=== PATIENT | male | born 1945 | race Caucasian/White ===

== ENCOUNTER 2019-09-21 05:51 | Day surgery (SDC) | payer OTHER, SELFPAY ==
[2019-09-18 08:51] VITALS: BMI 22.6
[2019-09-21] MEDS: sodium chloride 0.9% 1,000 ML 30 ML (06:18)
[2019-09-21 06:19] VITALS: BP 123/87; PULSE 71; RESP 16; TEMP 36.4; O2SAT 94
--- NOTE | 2019-09-21 06:46 | ANES.PREANE2 ---
Pre-Anesthetic Assessment Pre-Anesthetic Assessment: Height/Weight: Height 1.8 m Weight 73.539 kg Temp Pulse Resp BP Pulse Ox 97.5 F L 71 16 123/87 94 09/21/19 06:19 09/21/19 06:19 09/21/19 06:19 09/21/19 06:19 09/21/19 06:19 Preop Diagnosis: throat change in stools Proposed Procedure: Operation Date: 09/21/19 07:00 Proposed Procedures p EGD/COLON 00339/90155/ R19.5/ R68.89(Not Applicable) - Darell Paiz MD s Colonoscopy(Not Applicable) - Darell Paiz MD Was Beta Diane taken within 24 hours: Yes Last intake: Intake Last Liquid Date 09/20/19 Last Liquid Time 20:00 Last Solid Date 09/19/19 Last Solid Time 20:00 Social: Social History: No alcohol and No tobacco Exam: Pre-Anes Outpt Exam: alert, oriented x 3, clear to auscultation bilaterally and regular rate & rhythm Airway: Submandibular: WNL Cervical ROM: WNL MP: 3 Dentition: Full History/ROS: No significant history except as noted and No significant complaints Pulmonary: Pulmonary: None reported CV/HEM: CV/HEM: CAD, HTN and [facility] (2005, [address] Mercedes 08/17- no changes ) : : None reported Hepatic: Hepatic: None reported GI: GI: None reported Metabolic: Metabolic: None reported Musc/skel: Musc/skel: OA/DJD Neuropsych: Neuropsych: None reported Anesthetic Plan: ASA status: 3 Anesthesia: MAC PFSH Anesthesia PFSH: Social History Smoking and tobacco status: never smoked Alcohol intake: never Household members: spouse Marital status: Current occupational status: retired History of recent travel: No Data Anesthesia Cardiac Studies: No Data to Display
--- NOTE | 2019-09-21 07:05 | W.PM.OPSUD ---
Surgery/Procedure H&P Update DATE OF PROCEDURE: September 21, 2019 DATE H&P PERFORMED: 08/31/19 H&P UPDATE INFORMATION: I have reviewed H&P completed within last 30 days, I have examined patient prior to procedure and No changes to prior documentation PREOP DIAGNOSIS: throat change in stools PLANNED PROCEDURE: Operation Date: 09/21/19 07:00 Proposed Procedures p EGD/COLON 88489/65956/ R19.5/ R68.89(Not Applicable) - Darell Paiz MD s Colonoscopy(Not Applicable) - Darell Paiz MD
[2019-09-21 07:28] VITALS: BP 78/52; PULSE 70; RESP 16; TEMP 36.2; O2SAT 93
[2019-09-21 07:40] VITALS: BP 89/60; PULSE 66; RESP 18; TEMP 36.2; O2SAT 94
--- NOTE | 2019-09-21 08:14 | ANE.PACU2 ---
 Inpatient post-anesthesia follow up: Airway intact: Yes Vital signs: Temperature 97.1 F Pulse Rate 66 Respiratory Rate 18 Blood Pressure 89/60 Pulse Oximetry 94 Oxygen Delivery Me thod Room Air Oxygen Flow Rate 2 Fraction of Inspir ed Oxygen Hydration adequate: Yes Nausea and vomiting: No Mental status: Baseline Additional Comments: bp improved to 90s sys. , no s/s distress
== END 2019-09-21 08:09 | disposition home or self-care (01) ==
PROVIDERS: Family Provider Nurse Practitioner Family; PCP Internal Medicine; Visit Provider Surgery
PROC: 0DJ08ZZ Inspection of Upper Intestinal Tract, Via Natural or Artificial Opening Endoscopic (ICD-10-PCS; CPT 43235; principal; 2019-09-21 07:00)
PROC: 0DJD8ZZ Inspection of Lower Intestinal Tract, Via Natural or Artificial Opening Endoscopic (ICD-10-PCS; CPT 45378; 2019-09-21 07:00)
DX: R19.4 Change in bowel habit (principal); R07.0 Pain in throat; Z79.82 Long term (current) use of aspirin; Z79.52 Long term (current) use of systemic steroids; N40.0 Benign prostatic hyperplasia without lower urinary tract symptoms; E78.00 Pure hypercholesterolemia, unspecified; I25.2 Old myocardial infarction; M19.90 Unspecified osteoarthritis, unspecified site; Z82.49 Family history of ischemic heart disease and other diseases of the circulatory system; K20.9 Esophagitis, unspecified; K44.9 Diaphragmatic hernia without obstruction or gangrene; K22.70 Barrett's esophagus without dysplasia; K57.30 Diverticulosis of large intestine without perforation or abscess without bleeding
CPT/HCPCS: 12345; 43239; 45378; 88305; J2001; J2370; J2704; J7030

== ENCOUNTER 2020-02-04 08:26 | Outpatient (CLI) | payer OTHER, SELFPAY ==
--- NOTE | 2020-02-04 | XR_ITS ---
WS: [id number] PROCEDURE: XR chest 2V* 24030 CLINICAL INFORMATION: COUGH COMPARISON: None. FINDINGS: Heart: Normal cardiac silhouette. Aortic calcification Lungs: Moderate chronic emphysematous changes. No acute pulmonary infiltrates. No focal pneumonia. Bones: Normal visualized bony structures. XR/XR chest 2V* 10193 IMPRESSION: Moderate chronic emphysematous changes. No focal pneumonia.
--- NOTE | 2020-02-04 | CT_ITS ---
WS: [id number] CT NECK TECHNIQUE: Contrast-enhanced CT of the neck with coronal and sagittal reformatted images. CLINICAL INFORMATION: PAIN IN THROAT COMPARISON: None. DLP: 2469.[address] scans at [facility] use at least one of these dose optimization techniques: automat ed exposure control; mA and/or kV adjustment per patient size (includes targeted exams where dose is matched to clinical indication); or iterative reconstruction. FINDINGS: Parotid glands are normal. Normal submandibular glands. Normal posterior nasopharynx. Normal paraphar yngeal fat. Normal palatine tonsils. Normal vallecula and piriform sinuses. No evidence of supraglott ic or glottic mass. Thyroid gland is normal. No cervical lymphadenopathy. Moderate calcified atheromatous disease left carotid bulb. Mastoid air cells and paranasal sinuses are well aerated. Moderate emphysematous changes in the lung apices. Advanced spondylitic changes cervical spine with grade 1 anterolisthesis C4 on C5. Partially visualized intracranial contents normal. CT/CT neck w con* 08678 IMPRESSION: 1. Salivary glands are normal. 2. No cervical lymphadenopathy. 3. No evidence of supraglottic or glottic mass. 4. Paranasal sinuses and mastoid air cells are well aerated.
[2020-02-04 09:10] LABS: Blood Urea Nitrogen 10 mg/dL (8-23)
[2020-02-04] MEDS: iohexol 300 mg/mL 100 mL Btl IV (09:16)
== END 2020-02-04 08:27 | disposition home or self-care (01) ==
LOC: RADWPI 08:29
PROVIDERS: Family Provider Nurse Practitioner Family; PCP Nurse Practitioner Family; Visit Provider Specialist
DX: R07.0 Pain in throat (principal); R05 Cough
CPT/HCPCS: 70491; 71046; 82565; 84520; Q9967

== ENCOUNTER → 2020-05-09 14:49 | Outpatient (BNVA) | payer OTHER, SELFPAY | PROVIDERS: Family Provider Nurse Practitioner Family; PCP Nurse Practitioner Family; Referring Provider Internal Medicine; Visit Provider Nurse Practitioner Family | DX: N40.1 Benign prostatic hyperplasia with lower urinary tract symptoms (principal); M54.9 Dorsalgia, unspecified | CPT/HCPCS: 81001 ==

== ENCOUNTER → 2020-06-29 09:48 | Outpatient (BNVA) | payer OTHER, SELFPAY | PROVIDERS: Family Provider Nurse Practitioner Family; PCP Nurse Practitioner Family; Visit Provider Internal Medicine Rheumatology | DX: M15.9 Polyosteoarthritis, unspecified (principal); Z79.899 Other long term (current) drug therapy; Z11.59 Encounter for screening for other viral diseases; Z11.1 Encounter for screening for respiratory tuberculosis | CPT/HCPCS: 99204 ==

== ENCOUNTER 2020-07-04 10:58 | Outpatient (CLI) | payer OTHER, SELFPAY ==
--- NOTE | 2020-07-04 11:14 | XR_ITS ---
WS: [id number] XR foot LT min 3V* 38429 REASON FOR EXAM: M19.90 - Unspecified osteoarthritis, unspecified site FINDINGS: Mild/moderate narrowing of the MIP and DIP joints with subchondral sclerosis of the left toes. There is a hallux valgus deformity of the metatarsal phalangeal joint of the great toe with mild to m oderate narrowing of the joint space and subchondral sclerosis. Bony overgrowth of the metatarsal hea d of the great toe erodes the adjacent sesamoid bone. The joints of the midfoot are intact with mild narrowing of the talonavicular joint with subchondral sclerosis. The joints of the hindfoot are intact. No fracture or dislocation. No focal bony lesion. XR/XR foot LT min 3V* 86240 IMPRESSION: Changes of osteoarthropathy and multiple joints of the left foot as above.
--- NOTE | 2020-07-04 11:14 | XR_ITS ---
WS: [id number] XR hand RT min 3V* 11427 REASON FOR EXAM: M19.90 - Unspecified osteoarthritis, unspecified site FINDINGS: There is mild to moderate of the DIP and MIP joints of the fingers of the right hand with subchondral sclerosis. Similar changes are seen in the third and fourth metacarpal phalangeal joints. The first through the third metacarpal phalangeal joints are significantly narrowed with dense subcho ndral sclerosis enlargement of the metacarpal head with multiple small cysts. Similar changes are see n in the carpal metacarpal joint of the thumb. XR/XR hand RT min 3V* 81410 IMPRESSION: Arthropathic change in multiple joints of the right hand compatible with osteoa rthropathy.
--- NOTE | 2020-07-04 11:14 | XR_ITS ---
WS: [id number] XR hand LT min 3V* 31772 REASON FOR EXAM: M19.90 - Unspecified osteoarthritis, unspecified site FINDINGS: In the DIP and MIP joints of the left hand there is mild to moderate narrowing of the disc spaces wit h subchondral sclerosis. In the first, fourth, and fifth metacarpal phalangeal joints there are similar arthropathic changes. In the second and third carpal metacarpal joints there is significant joint space narrowing and enlar gement of the metacarpal head with multiple small cysts and subchondral sclerosis. XR/XR hand LT min 3V* 33547 IMPRESSION: Arthropathy in multiple joints of the left hand most compatible with osteoarthr opathy. While the involvement of the carpal metacarpal joints is more typical o f rheumatoid arthritis the radiographic character of the arthropathy is most co mpatible with osteoarthropathy.
--- NOTE | 2020-07-04 11:14 | XR_ITS ---
WS: [id number] XR foot RT min 3V* 62872 REASON FOR EXAM: M19.90 - Unspecified osteoarthritis, unspecified site FINDINGS: Mild to moderate narrowing of the MIP and DIP joints with subchondral sclerosis of the right toes. The metatarsophalangeal joint of the right great toe demonstrates a hallux valgus deformity with mode rate joint space narrowing and enlargement of the metatarsal head with multiple small cysts and scler osis. The overgrowth of the metatarsal head erodes the adjacent sesamoid bone. Similar findings are s een in the metatarsal phalangeal joint of the second toe. The joints of the midfoot are intact. There is mild narrowing of the talonavicular joint with subchon dral sclerosis. The joint spaces of the hindfoot are intact. No fracture dislocation or focal bony lesion is identified. XR/XR foot RT min 3V* 04670 IMPRESSION: Osteoarthropathy involving the right foot as above.
--- NOTE | 2020-07-04 11:14 | XR_ITS ---
WS: [id number] CHEST 2 VIEWS HISTORY: M19.90 - Unspecified osteoarthritis, unspecified site COMPARISON: 02/04/2020 Lungs: Hyperinflated lungs from emphysema. No pneumonia. Normal vasculature. Cardiac size: Normal. Mediastinum/Aorta: Mild atherosclerosis aorta. Bones: Normal. XR/XR chest 2V* 83092 IMPRESSION: Mild chronic emphysema and partially calcified aorta.
[2020-07-04 12:44] LABS: Basophils # 0.1 10^3/uL (0.0-0.1); Basophils % 0.9 %; Eosinophils % 0.5 %; Hematocrit 45.4 % (42.0-52.0); Hemoglobin 14.9 g/dL (11.7-16.6); Lymphocytes # 1.3 10^3/uL (0.8-4.8); Lymphocytes % 24.4 %; Mean Corpuscular HGB Conc 32.8 g/dL (30.0-36.0); Mean Corpuscular Hemoglobin 29.9 pg (28.0-34.0); Mean Corpuscular Volume 91.2 fL (80-94); Mean Platelet Volume 8.7 fL (7.4-10.4); Monocytes # 0.4 10^3/uL (0.2-0.9); Monocytes % 7.7 %; Neutrophils # 3.62 10^3/uL (1.8-7.7); Neutrophils % 66.3 %; Nucleated Red Blood Cells % 0 %; Platelet Count 256 10^3/cmm (130-400); Red Blood Count 4.98 10^6/uL (4.1-5.3); Red Cell Distribution Width 12.9 % (12.1-15.1); White Blood Count 5.5 10^3/uL (4.0-10.0)
[2020-07-04 13:28] LABS: Alanine Aminotransferase 17 U/L (0-41); Alkaline Phosphatase 76 IU/L (40-130); Aspartate Amino Transferase 26 U/L (0-40); C Reactive Protein 1.4 mg/L (0.0-4.9); Globulin 2.4 g/dL (1.3-4.6); Total Bilirubin 0.6 mg/dL (0.15-1.2); Total Protein 6.4 g/dL (6.6-8.7); Uric Acid 5.3 mg/dL (3.4-7.0)
[2020-07-04 14:14] LABS: Hepatitis B Core AB, Total Non-Reactive (Nonreactive); Hepatitis B Surface Antigen Non-Reactive (Nonreactive); Hepatitis C Virus Antibody Non-Reactive (Nonreactive)
[2020-07-04 14:55] LABS: Erythrocyte Sedimentation Rate 9 mm/hr (0-10)
[2020-07-04 17:19] LABS: 25 Hydroxy Vitamin D 31 ng/mL (30-100)
[2020-07-05 12:52] LABS: Cyclic Citrullinated Peptide <16 UNITS
[2020-07-06 12:38] LABS: Quantiferon Mitogen 7.83 IU/mL; Quantiferon Nil 0.05 IU/mL; Quantiferon Plus TB1 0.04 IU/mL; Quantiferon Plus TB2 0.01 IU/mL; Quantiferon TB Gold NEGATIVE (NEGATIVE)
== END 2020-07-04 10:59 | disposition home or self-care (01) ==
PROVIDERS: PCP Nurse Practitioner Family; Visit Provider Internal Medicine Rheumatology
DX: M19.90 Unspecified osteoarthritis, unspecified site (principal); Z11.59 Encounter for screening for other viral diseases; Z79.899 Other long term (current) drug therapy; M89.471 Other hypertrophic osteoarthropathy, right ankle and foot; J43.9 Emphysema, unspecified; I70.0 Atherosclerosis of aorta
CPT/HCPCS: 71046; 73130; 73630; 80076; 82306; 82565; 84550; 85025; 85651; 86140; 86431; 86480; 86704; 86803; 87340

== ENCOUNTER 2020-07-05 10:15 | Emergency (ER) | payer OTHER, SELFPAY ==
[2020-07-05 10:17] VITALS: BP 139/74; PULSE 68; RESP 16; TEMP 36.5; O2SAT 100; BMI 22.3
--- NOTE | 2020-07-05 10:31 | XR_ITS ---
WS: [id number] XR KUB portable [id number] REASON FOR EXAM: constipation FINDINGS: Moderate amount of stool throughout the right and transverse colons.. There is no large fecal accumul ation in the rectal vault. There is no distended bowel. There are 2 calcifications in the right abdomen. These have been noted previously and CT scan of 03/21 demonstrated cholelithiasis. No free air. No mass identified. Severe changes of degenerative spondylosis in the lumbar spine. Total left hip arthroplasty. XR/XR KUB portable [id number] IMPRESSION: Bowel gas pattern as above.
--- NOTE | 2020-07-05 10:31 | ED_ITS ---
HPI - Male Genitourinary General: Chief complaint: Urogenital-Male Stated complaint: Unable to use [facility] Time Seen by Provider: 07/05/20 10:23 History of Present Illness: HPI Narrative: Patient states the last 2 days he has had a lot of difficulty with urination. Had problems with his bowels for the last 2 to 3 weeks. Had his prostate medicine doubled up dose lima about a month ago through the [place] [facility]. And that would be Flomax. Patient denies any other problems presently MD Complaint: dysuria Onset (ago): day(s) Duration: constant and progressively worsening Associated symptoms: Deny nausea or vomiting Review of Systems Const: Denies: fever(s), chills or body aches Eyes: Denies: change in vision or blurry vision ENMT: Denies: throat pain or nasal congestion Card: Denies: chest pain or dyspnea on exertion Resp: Denies: dyspnea, productive cough or non-productive cough GI: Reports: other (Constipation); Denies: abdominal pain, nausea or vomiting : Reports: difficulty urinating and difficulty starting urination Musc: Denies: extremity pain Skin/Breast: Denies: rash Neuro: Denies: headache(s) Psych: Denies: anxiety or depression Parth/Lymph: Denies: easy bruising PFSH ED PFSH: Medical History (Updated 06/29/20 @ 11:00 by Xavi Mckeon MD) Back pain BPH (benign prostatic hyperplasia) BPH loc w urin obs/LUTS High risk medication use History of atrial fibrillation History of GI bleed Hx of coronary artery disease Hx of hypercholesterolemia Hx of myocardial infarction Hx of sciatica Hx of TIA (transient ischemic attack) and stroke Hypercholesterolemia Immunization counseling Inflammatory arthritis Joint pain Myocardial infarction Osteoarthritis Osteoarthritis of hands, bilateral S/P ORIF (open reduction internal fixation) fracture left forearm and right elbow Surgical History (Updated 06/29/20 @ 11:00 by Xavi Mckeon MD) H/O colonoscopy 09/20/2019: sigmoid diverticulosis H/O esophagogastroduodenoscopy 09/20/2019: hiatal hernia, Barretts esophagus and hiatal hernia History of bunionectomy (07/09/18) [facility]. Dr. Taylor History of coronary angioplasty with insertion of stent (02/2017) 13224 2 and 2017 2 History of coronary artery stent placement History of hip replacement (07/2009) Left, Total. [facility] Hx of cataract surgery Family History Father CAD (coronary artery disease) Myocardial infarction Mother Stroke Brother Stroke Denies family history of Anesthesia complication Bleeding disorder Social History Smoking and tobacco status: never smoked Alcohol intake: never Household members: spouse Marital status: Current occupational status: retired History of recent travel: No Physical Exam Const: COMMON NORMALS: no acute distress, average body habitus and patient oriented x3 HENMT: COMMON NORMALS: normocephalic HEAD & SCALP: normal to inspection and normocephalic FACE & SINUS: normal facial exam Eye: COMMON NORMALS: conjunctivae normal GENERAL EYE: appearance normal, both eyes and all related structures CONJUNCTIVA: Yes conjunctivae normal Neck/C-Spine: COMMON NORMALS: no JVD Chest: COMMONS NORMALS: normal inspection of the chest Resp: COMMON NORMALS: normal respiratory effort and clear to auscultation bilaterally AUSCULTATION: clear to auscultation bilaterally Cardio: COMMON NORMALS: no JVD, regular rate and regular rhythm RATE: reg ular rate RHYTHM: regular rhythm GI: COMMON NORMALS: Normal to inspection, nondistended, normoactive bowel sounds present Extremity: COMMON NORMALS: normal to inspection and full ROM Neuro: COMMON NORMALS: patient oriented x3 Course Vital Signs: Vital signs: Vital Signs Temperature 97.7 F 07/05/20 10:17 Pulse Rate 68 07/05/20 10:17 Respiratory Rate 16 07/05/20 10:17 Blood Pressure 139/74 07/05/20 10:17 Pulse Oximetry 100 07/05/20 10:17 Discharge Plan Discharge Prescriptions: No Action pantoprazole 40 mg tablet,delayed release (DR/EC) 40 mg PO QDAY Qty: 30 RF: 2 Hold Instructions: Resume on 10/05/19. change to bid until then prednisone 10 mg tablet 10 mg PO DAILY Qty: 30 RF: 2 metoprolol tartrate 50 mg tablet 50 mg PO BID RF: 0 sennosides [Senna Laxative] 8.6 mg tablet 8.6 mg PO BID RF: 0 ferrous sulfate 325 mg (65 mg iron) tablet See Rx Instructions PO BID RF: 0 finasteride 5 mg tablet 5 mg PO QDAY RF: 0 clopidogrel 75 mg tablet 75 mg PO QDAY RF: 0 lisinopril 2.5 mg tablet 2.5 mg PO BID RF: 0 simvastatin 80 mg tablet 40 mg PO QDAY RF: 0 aspirin [Adult Low Dose Aspirin] 81 mg tablet,delayed release (DR/EC) 81 mg PO QDAY RF: 0 tamsulosin 0.4 mg capsule 0.4 mg PO BID Qty: 180 RF: 3 Coding Level of Care Code ED Helper/Driver for Maya Hogue
[2020-07-05 10:53] LABS: Basophils # 0.1 10^3/uL (0.0-0.1); Basophils % 0.9 %; Eosinophils % 0.6 %; Hematocrit 44.5 % (42.0-52.0); Lymphocytes # 1.3 10^3/uL (0.8-4.8); Lymphocytes % 24.1 %; Mean Corpuscular HGB Conc 33.7 g/dL (30.0-36.0); Mean Corpuscular Hemoglobin 30.2 pg (28.0-34.0); Mean Corpuscular Volume 89.7 fL (80-94); Mean Platelet Volume 9.1 fL (7.4-10.4); Monocytes # 0.4 10^3/uL (0.2-0.9); Monocytes % 7.1 %; Neutrophils # 3.56 10^3/uL (1.8-7.7); Neutrophils % 66.9 %; Nucleated Red Blood Cells % 0 %; Platelet Count 229 10^3/cmm (130-400); Red Blood Count 4.96 10^6/uL (4.1-5.3); Red Cell Distribution Width 12.9 % (12.1-15.1); White Blood Count 5.3 10^3/uL (4.0-10.0)
[2020-07-05 11:09] LABS: Alanine Aminotransferase 17 U/L (0-41); Albumin Level 3.9 g/dL (3.5-5.2); Alkaline Phosphatase 72 IU/L (40-130); Anion Gap 15.3 (5-19); Aspartate Amino Transferase 20 U/L (0-40); Blood Urea Nitrogen 7 mg/dL (8-23); Calcium 9.5 mg/dL (8.5-10.5); Carbon Dioxide 24 mmol/L (22-29); Chloride 103 mmol/L (98-107); Globulin 2.1 g/dL (1.3-4.6); Glucose 94 mg/dL (65-115); Osmolality Calculated 284 mOsm/kg (285-295); Potassium 4.3 mmol/L (3.5-5.1); Sodium 138 mmol/L (136-145); Total Bilirubin 0.5 mg/dL (0.15-1.2)
[2020-07-05 11:10] LABS: Creatinine Clr Calc Pharmacy 85.0323
[2020-07-05 11:39] LABS: Bilirubin Urine Neg (Negative); Blood Urine 2+ (Negative); Glucose Urine UA Norm (Normal); Ketones Urine 1+ (Negative); Leukocyte Esterase Urine Negative (Negative); Nitrate Urine Negative (Negative); Protein Urine Neg (Negative); Urine Appearance SL Hazy (CLEAR); Urine Color Yellow (Yellow); Urobilinogen Urine Norm (Negative)
[2020-07-05 11:40] LABS: Add Urine Microscopic? YES
[2020-07-05 11:51] LABS: Add Urine Culture? No; Bacteria Urine TRACE /hpf; RBC Urine 0-4 /hpf (0-2); Squamous Epithelial Cell Urine RARE /hpf (0-5)
[2020-07-05 12:45] VITALS: BP 115/70; PULSE 74; RESP 20; O2SAT 94
--- NOTE | 2020-07-05 15:21 | DCPLANNER ---
Addendum entered by Armida Trejo 07/05/20 15:50: [facility] contacted director case management stating that patient has a [facility] consult [facility] until October of 2020. Original Note: business center manager had message to schedule a follow up appointment for patient with the office of Dr. Agustin. business center manager called the office of Dr. Agustin, spoke with Quyen, gave clinic patients information. business center manager was told that patients information would be printed and reviewed. Clinic will call patient with appointment information. Patient has [facility] insurance, director case management will send patients records [facility], so that a consult for patient can be placed.
--- NOTE | 2020-07-07 13:22 | DCPLANNER ---
Patient has a follow up appointment scheduled for Sunday, July 12, 2020 at 8:[address] Agustin. Clinic will call patient with appointment information.
--- NOTE | 2020-07-15 07:45 | DCPLANNER ---
Patient had a follow up appointment scheduled for 07.12.[address] Agustin - patient did attend appointment.
== END 2020-07-05 12:35 | disposition home or self-care (01) ==
PROVIDERS: Emergency Provider Nurse Practitioner Family; PCP Nurse Practitioner Family
DX: R39.198 Other difficulties with micturition (principal); Z79.02 Long term (current) use of antithrombotics/antiplatelets; Z79.82 Long term (current) use of aspirin; I25.10 Atherosclerotic heart disease of native coronary artery without angina pectoris; I25.2 Old myocardial infarction; Z86.73 Personal history of transient ischemic attack (TIA), and cerebral infarction without residual deficits; Z95.5 Presence of coronary angioplasty implant and graft
CPT/HCPCS: 12345; 51702; 74018; 80053; 81001; 85025; 99281; 99283

== ENCOUNTER → 2020-07-12 10:10 | Outpatient (BNVA) | payer OTHER, SELFPAY | PROVIDERS: PCP Nurse Practitioner Family; Visit Provider Urology | DX: R33.8 Other retention of urine (principal); N40.1 Benign prostatic hyperplasia with lower urinary tract symptoms | CPT/HCPCS: 81003; 87077; 87086; 87184; 87635 ==

== ENCOUNTER → 2020-08-18 09:48 | Outpatient (BNVA) | payer OTHER, SELFPAY | PROVIDERS: PCP Nurse Practitioner Family; Visit Provider Internal Medicine Rheumatology | DX: M05.79 Rheumatoid arthritis with rheumatoid factor of multiple sites without organ or systems involvement (principal); Z79.899 Other long term (current) drug therapy; M15.9 Polyosteoarthritis, unspecified | CPT/HCPCS: 99214 ==

== ENCOUNTER → 2020-09-20 09:39 | Outpatient (BNVA) | payer OTHER, SELFPAY | PROVIDERS: PCP Nurse Practitioner Family; Visit Provider Internal Medicine Rheumatology | DX: M05.79 Rheumatoid arthritis with rheumatoid factor of multiple sites without organ or systems involvement (principal); Z79.899 Other long term (current) drug therapy | CPT/HCPCS: 36415; 80076; 82565; 85025; 86140 ==

== ENCOUNTER 2020-11-08 12:11 | Emergency (ER) | payer OTHER, SELFPAY ==
[2020-11-08 12:24] VITALS: BP 136/83; PULSE 67; RESP 18; TEMP 36.5; O2SAT 97; BMI 22.3
--- NOTE | 2020-11-08 13:05 | CT_ITS ---
WS: [id number] CT HEAD NONCONTRAST HISTORY: fell off a horse, head injury, dizziness TECHNIQUE: Contiguous axial imaging performed through the brain in 2.5 mm imaging. Bone and soft tiss ue windows. Sagittal and coronal reformats reviewed. All CT scans at [facility] use at le ast one of these dose optimization techniques: automated exposure control; mA and/or kV adjustment pe r patient size (includes targeted exams where dose is matched to clinical indication); or iterative r econstruction. DLP: 896.36 mGy.cm COMPARISON: 12/18/2016 No acute intracranial hemorrhage, midline shift or mass effect. Mild atrophy and mild chronic microvascular ischemic disease. Focal 4 mm area of increased density i n the RIGHT parietal lobe towards the vertex. This was not present on the prior examination from 2017 . Highly suspicious for acute focal cerebral bleed. Ventricles: Mildly prominent ventricles. No intracranial blood. Paranasal sinuses: As visualized are clear. Mastoid air cells: Well pneumatized. Calvarium and scalp: Skull is intact with no soft tissue edema or swelling. CT/CT head wo con* [id number] IMPRESSION: 1. Tiny petechial hemorrhage measuring 4 mm in the RIGHT parietal lobe at the vertex. No midline shift. 2. Mild atrophy. 3. No skull fracture. Notified Javier Stoll MD [facility] [place] at 11/08/2020 2:51 PM. Not available.
--- NOTE | 2020-11-08 13:05 | XRR_ITS ---
PROCEDURE INFORMATION: Exam: XR Left Shoulder Exam date and time: 11/08/2020 1:12 PM Age: 75 years old Clinical indication: Injury or trauma; Other: Horse fell on PT; Blunt trauma (contusions or hematomas); Shoulder; Injury date: 11/04/20; Patient HX: Horse fell on patient, cannot lift left arm; Additional info: Fall off horse TECHNIQUE: Imaging protocol: XR Left shoulder. Views: 2 or more views. COMPARISON: CR Shoulder 2+ views LEFT* [id number] 02/17/2014 9:59 AM FINDINGS: Bones/joints: Negative for acute bony abnormality. Soft tissues: Normal. XR/XR shoulder LT min 2V* [id number] IMPRESSION: No acute bone abnormality.
--- NOTE | 2020-11-08 14:40 | W.ED.TRAUMA ---
HPI - Trauma General: Chief Complaint: Trauma Stated Complaint: HORSE FELL ON PT FRI/HEAD/L SHOULDER PAIN, DIZZY Time Seen by Provider: 11/08/20 12:38 Source: patient Mode of arrival: ambulatory Limitations: no limitations History of Present Illness: HPI narrative: Patient is a 75-year-old male who fell off a horse 4 days ago. He landed on his head and sustained abrasions to the left side of his face. He denies loss of consciousness at the time, however today he developed dizziness, said he had difficulty focusing, and was wobbly on his foot. He therefore is here to be evaluated. He also complains of difficulty lifting up his left upper extremity since the fall. complaint: fall Onset (ago): day(s) (4) Loss of Consciousness: no Location: head Location - Extremities: Left: shoulder Context: other (Fell off a horse) Associated symptoms: Reports dizziness and weakness; Denies abdominal pain, anorexia, back pain, chest pain, chills, confusion, cough, dental pain, diaphoresis, difficulty breathing, epistaxis, fever(s), headache(s), nausea, seizures, short of breath, syncope, visual disturbances or vomiting Review of Systems General: Reports: 10 or more systems reviewed and unremarkable except in HPI and below Const: Denies: fever(s), chills or diaphoresis ENMT: Denies: dental pain or epistaxis Card: Denies: chest pain or syncope GI: Denies: abdominal pain, nausea or vomiting Musc: Denies: back pain Neuro: Reports: dizziness; Denies: headache(s) or confusion PFS ED PFSH: Medical History Back pain BPH (benign prostatic hyperplasia) BPH loc w urin obs/LUTS High risk medication use History of atrial fibrillation History of GI bleed Hx of coronary artery disease Hx of hypercholesterolemia Hx of myocardial infarction Hx of sciatica Hx of TIA (transient ischemic attack) and stroke Hypercholesterolemia Immunization counseling Inflammatory arthritis Joint pain Myocardial infarction Osteoarthritis Osteoarthritis of hands, bilateral S/P ORIF (open reduction internal fixation) fracture left forearm and right elbow Seropositive rheumatoid arthritis of multiple sites Surgical History H/O colonoscopy 09/20/2019: sigmoid diverticulosis H/O esophagogastroduodenoscopy 09/20/2019: hiatal hernia, Barretts esophagus and hiatal hernia History of bunionectomy (07/09/18) [facility]. Dr. Taylor History of coronary angioplasty with insertion of stent (02/2017) 2 and 2016 2 History of coronary artery stent placement History of hip replacement (07/2009) Left, Total. [facility] Hx of cataract surgery Family History Father CAD (coronary artery disease) Myocardial infarction Mother Stroke Brother Stroke Denies family history of Anesthesia complication Bleeding disorder Social History Smoking and tobacco status: never smoked Alcohol intake: never Household members: spouse Marital status: Current occupational status: retired History of recent travel: No Physical Exam Const: COMMON NORMALS: no acute distress, average body habitus, patient oriented x3, no limitations, healthy appearing, alert and well nourished HENMT: COMMON NORMALS: normocephalic and moist oral mucous membranes HEAD & SCALP: normocephalic and abrasion (Left temporal) Eye: COMMON NORMALS: Equal, round and reactive pupils present, EOMs intact bilaterally, conjunctivae normal and no scleral icterus PERIORBITAL: periorbital findings abnormal positive left periorbital ecchymosis CONJUNCTIVA: Yes conjunctivae normal PUPIL: Yes Equal, round and reactive pupils present Neck/C-Spine: COMMON NORMALS: full ROM, supple, no meningeal signs, no JVD and No carotid bruits Chest: COMMONS NORMALS: normal inspection of the chest and normal palpation of entire chest wall Resp: COMMON NORMALS: normal respiratory effort, No retractions, No use of accessory muscles, clear to auscultation bilaterally and percussion normal AUSCULTATION: clear to auscultation bilaterally PERCUSSION: percussion normal Cardio: COMMON NORMALS: no JVD, regular rate, regular rhythm, S1 normal heart sound present, S2 normal heart sound present, No gallops present (Cardio), No clicks present (Cardio), No murmurs present (Cardio), No rub (Cardio) and Peripheral pulses 2+ throughout RATE: regular rate RHYTHM: regular rhythm HEART SOUNDS: S1 normal heart sound present and S2 normal heart sound present PERIPHERAL PULSES: Peripheral pulses 2+ throughout GI: COMMON NORMALS: Normal to inspection, nondistended, normoactive bowel sounds present, Soft to palpation, non-tender, No hepatosplenomegaly present, no masses and no bruits PALPATION: Yes Soft to palpation and Yes No hepatosplenomegaly present : COMMON NORMALS: Yes no CVA tenderness BLADDER/KIDNEY EXAM: Yes no CVA tenderness Back/Pelvis: COMMON NORMALS: no CVA tenderness Extremity: COMMON NORMALS: normal to inspection, full ROM, capillary refill normal, no calf tenderness and no pedal edema Neuro: COMMON NORMALS: patient oriented x3 SENSORIUM/ORIENTATION: Yes alert MENINGEAL SIGNS: Yes no meningeal signs Skin: COMMON NORMALS: no rashes or lesions noted, no wounds, turgor normal, no jaundice, no petechiae and no mottling GENERAL SKIN EXAM: no rashes or lesions noted and turgor normal MDM - Trauma MDM Narrative: Medical decision making narrative: 75 year old male who fell off a horse 4 days ago. He presented today with dizziness and difficulty focusing. Imaging done showed a tiny bleed on the right parietal lobe. He had difficulty with moving his left shoulder and an xray of the shoulder was negative. He is discharged home with no new orders and is to f/u with neurosurgery in 1-2 weeks. Medical Records: Attestation: I reviewed the patient's medical records. Imaging Data^: CT Head: Attestation: I personally reviewed and interpreted this imaging study as follows: Radiologist's impression: [address] [address] [address] Scan Report Signed Patient: Matthew Mederos #: [id number] : 6Acct#:[id number] Age/Sex: 75 / MADM Date: 11/08/20 Loc: ERRoom/Bed: Attending Dr: Ordering Provider/Ordering MD: [place]oll [place] [facility] [place] Service: 11/08/20 Procedure(s): CT head wo con* [id number] Accession Number(s): [id number] Report Number: [id number] WS: [id number] CT HEAD NONCONTRAST HISTORY: fell off a horse, head injury, dizziness TECHNIQUE: Contiguous axial imaging performed through the brain in 2.5 mm imaging. Bone and soft tissue windows. Sagittal and coronal reformats reviewed. All CT scans at [facility] use at least one of these dose optimization techniques: automated exposure control; mA and/or kV adjustment per patient size (includes targeted exams where dose is matched to clinical indication); or iterative reconstruction. DLP: 896.36 mGy.cm COMPARISON: 12/18/2016 No acute intracranial hemorrhage, midline shift or mass effect. Mild atrophy and mild chronic microvascular ischemic disease. Focal 4 mm area of increased density in the RIGHT parietal lobe towards the vertex. This was not present on the prior examination from 2017. Highly suspicious for acute focal cerebral bleed. Ventricles: Mildly prominent ventricles. No intracranial blood. Paranasal sinuses: As visualized are clear. Mastoid air cells: Well pneumatized. Calvarium and scalp: Skull is intact with no soft tissue edema or swelling. CT/CT head wo con* 13650 IMPRESSION: 1. Tiny petechial hemorrhage measuring 4 mm in the RIGHT parietal lobe at the vertex. No midline shift. 2. Mild atrophy. 3. No skull fracture. Notified Javier Stoll [place] [facility] [place] 11/08/2020 2:51 PM. Not available. Dictated By:Loli Cunha DO Signed By:Loli Cunha DOSigned Date/Time:11/08/20 1452 DD/ 1446 Xray Ortho: Attestation: I personally reviewed and interpreted this imaging study as follows: Radiologist's impression: [address] [place] [address] XRay Report Signed Patient: Matthew Mederos #: [id number] : 6Acct#:[id number] Age/Sex: 75 / MADM Date: 11/08/20 Loc: ERRoom/Bed: Attending Dr: Ordering Provider/Ordering MD: Javier Stoll [place] [facility] [place] of Service: 11/08/20 Procedure(s): XR shoulder LT min 2V* 70087 Accession Number(s): [id number] Report Number: [id number] PROCEDURE INFORMATION: Exam: XR Left Shoulder Exam date and time: 11/08/2020 1:12 PM Age: 75 years old Clinical indication: Injury or trauma; Other: Horse fell on PT; Blunt trauma (contusions or hematomas); Shoulder; Injury date: 11/04/20; Patient HX: Horse fell on patient, cannot lift left arm; Additional info: Fall off horse TECHNIQUE: Imaging protocol: XR Left shoulder. Views: 2 or more views. COMPARISON: CR Shoulder 2+ views LEFT* 56252 02/17/2014 9:59 AM FINDINGS: Bones/joints: Negative for acute bony abnormality. Soft tissues: Normal. XR/XR shoulder LT min 2V* 95754 IMPRESSION: No acute bone abnormality. Dictated By:Humberto Castillo Signed By:Karina Castillo Date/Time:11/08/201357 DD/ 57 Discharge Plan Discharge Patient Disposition: Home Clinical Impression: Intracranial hemorrhage, Post concussion syndrome Condition: Stable Prescriptions: Continued metoprolol tartrate 50 mg tablet 25 mg PO BID@ RF: 0 sennosides [Senna Laxative] 8.6 mg tablet 8.6 mg PO BID@ RF: 0 finasteride 5 mg tablet 5 mg PO DAILY@ RF: 0 clopidogrel 75 mg tablet 75 mg PO DAILY@ RF: 0 lisinopril 2.5 mg tablet 2.5 mg PO DAILY@ RF: 0 simvastatin 80 mg tablet 40 mg PO BEDTIME@1999 RF: 0 aspirin [Adult Low Dose Aspirin] 81 mg tablet,delayed release (DR/EC) 81 mg PO DAILY@ RF: 0 lactulose 20 gram packet 20 g PO BID PRN (Reason: constipation) Qty: 30 RF: 0 Miralax 17 gram/dose Powder 34 g PO DAILY PRN (Reason: Constipation) RF: 0 prednisone 10 mg tablet 10 mg PO DAILY@ RF: 0 tamsulosin 0.4 mg capsule 0.8 mg PO DAILY@1999 RF: 0 pantoprazole 40 mg tablet,delayed release (DR/EC) 40 mg PO DAILY@ RF: 0 folic acid 1 mg tablet 1 mg PO DAILY@ RF: 0 diclofenac sodium 1 % gel 4 g topical QID PRN (Reason: Pain) RF: 0 Discharge Orders: Discharge ED (Routine); Ordered 11/08/20 Ordered By: Javier Stoll Referrals: [facility] [Primary Care Provider] - 1-3 days Discharge Diet: Usual diet Discharge Activity: Limit activity as instructed Patient Instructions: Concussion (ED), Post Concussion Syndrome (ED) Activity Restrictions/Additional Instructions: Return for any new or worsening symptoms. You will be contacted by case management tomorrow to schedule an appointment with neurosurgery. Neurosurgeons want to see you in 1 to 2 weeks. I believe you may have had a concussion when he fell on Saturday and to reduce the symptoms of postconcussion syndrome and need you to rest for the next week. As much as possible stay in a darkened room, no brain activity which includes no TV, no reading books, stay off your phone, no rigorous activities. Continue home medications as prescribed. Coding Level of Care Code ED Explosive [employer]dn[employer] Disposal Manager for Maya Fwd Exam Comprehensive
[2020-11-08] MEDS: tetanus-dipt-pertussis 0.5 mL SDV IM (15:00)
--- NOTE | 2020-11-09 10:38 | DCPLANNER ---
athlete manager had message to schedule a follow up appointment for patient with neuro surgery. Patient has [facility] insurance, so case folder called patient and informed patient that case folder would email patients information to the [facility], for the authorization process could be started. athlete manager emailed patients information to Shawna with [facility]. athlete manager will contact Shawna to see if an appointment had been scheduled for patient.
== END 2020-11-08 16:24 | disposition home or self-care (01) ==
PROVIDERS: Emergency Provider Family Medicine
DX: S06.309A Unspecified focal traumatic brain injury with loss of consciousness of unspecified duration, initial encounter (principal); F07.81 Postconcussional syndrome; V80.010A Animal-rider injured by fall from or being thrown from horse in noncollision accident, initial encounter; I48.91 Unspecified atrial fibrillation; I25.10 Atherosclerotic heart disease of native coronary artery without angina pectoris; I25.2 Old myocardial infarction; Z86.73 Personal history of transient ischemic attack (TIA), and cerebral infarction without residual deficits; Z95.5 Presence of coronary angioplasty implant and graft; Z79.02 Long term (current) use of antithrombotics/antiplatelets; Z79.82 Long term (current) use of aspirin; Z23 Encounter for immunization
CPT/HCPCS: 70450; 73030; 90471; 90715; 99283

== ENCOUNTER 2021-04-10 10:12 | Outpatient (CLI) | payer OTHER, SELFPAY ==
--- NOTE | 2021-04-10 10:31 | CT_ITS ---
WS: [id number] CT TEMPORAL BONES TECHNIQUE: Noncontrast CT of the temporal bones with coronal and sagittal reformatted images. CLINICAL INFORMATION: BENIGN NEOPLASM OF MID EAR, NASAL CAVITY AND ACCESSORY SINUS COMPARISON: CT temporal October 20, 2015 DLP: 718.[address] scans at [facility] use at least one of these dose optimization techniques: automated e xposure control; mA and/or kV adjustment per patient size (includes targeted exams where dose is matc hed to clinical indication); or iterative reconstruction. FINDINGS: Previously described right middle ear lesion no longer visualized today. No middle ear lesi ons today. Normal scutum bilaterally. Mastoid air cells well aerated. Mild mucosal thickening right m axillary sinus. Mild mucosal thickening ethmoid air cells. RIGHT: Mastoid air cells are well aerated. Normal external auditory canal. Ossicles are normal in appearance . Middle ear is well aerated. Normal tegmen tympani. Semicircular canals and cochlea are normal in ap pearance. Prussak's space is normal. Normal inner ear structures. Normal vestibular aqueduct. Facial nerve recess is normal. LEFT: Mastoid air cells are well aerated. Normal external auditory canal. Ossicles are normal in appearance . Middle ear is well aerated. Normal tegmen tympani. Semicircular canals and cochlea are normal in ap pearance. Prussak's space is normal. Normal inner ear structures. Normal vestibular aqueduct. Facial nerve recess is normal. CT/CT temporal bone wo con* [id number] IMPRESSION: Previously described right middle ear lesion no longer visualized today. No mid dle ear lesions today.
--- NOTE | 2021-04-10 11:00 | MR_ITS ---
WS: [id number] MRI HEAD WITH CONTRAST WITH ATTENTION TO THE INTERNAL AUDITORY CANALS TECHNIQUE: Sagittal T1, T2 axial, T2 axial flair, axial susceptibility weighted imaging, axial diffus ion weighted images, and coronal T2 images were obtained. Pre and post T1 axial and post T1 coronal i mages. ADC and FSPGR images. Post gadolinium images with attention to the internal auditory canals. A xial fiesta imaging. CLINICAL INFORMATION: SENSORINEURAL HEARING LOSS, BILAT COMPARISON: MRI 6 FINDINGS: No evidence of restricted diffusion to suggest acute ischemia. Ventricular system and basal cisterns are patent. Mild small vessel changes. Moderate parenchymal volume loss. Normal posterior fossa. Norm al vascular flow voids at the skull base. No extra-axial fluid collections. No evidence of mass or ma ss effect. Mild mucosal thickening in the paranasal sinuses. Mastoid air cells are well aerated. Proximal 7th and 8th cranial nerves are normal in appearance. Normal trigeminal nerve root entry zone s. No evidence of enhancing IAC or CP angle mass. No abnormal parenchymal enhancement. Normal dural v enous sinuses. Normal optic chiasm and pituitary infundibulum. Normal cavernous sinuses and Meckel's cave. MR/MR iac's wo/w con* [id number] IMPRESSION: 1. No evidence of restricted diffusion to suggest acute ischemia. 2. No abnormal intracranial enhancement. 3. No evidence of enhancing IAC or CP angle mass. Proximal 7th and 8th cranial nerves appear normal. 4. Mild small vessel changes with moderate parenchymal volume loss.
[2021-04-10] MEDS: gadobenate dimeglumine 20 mL vial IV (12:08)
[2021-04-10 12:38] LABS: Blood Urea Nitrogen 9 mg/dL (8-23)
== END 2021-04-10 10:13 | disposition home or self-care (01) ==
PROVIDERS: Visit Provider Otolaryngology
DX: D14.0 Benign neoplasm of middle ear, nasal cavity and accessory sinuses (principal); H90.3 Sensorineural hearing loss, bilateral; H92.01 Otalgia, right ear
CPT/HCPCS: 70480; 70553; 82565; 84520; A9577

== ENCOUNTER → 2021-04-19 09:59 | Outpatient (BNVA) | payer OTHER, SELFPAY | PROVIDERS: Visit Provider Urology | DX: N40.1 Benign prostatic hyperplasia with lower urinary tract symptoms (principal); R33.9 Retention of urine, unspecified; M54.9 Dorsalgia, unspecified | CPT/HCPCS: 81003 ==

== ENCOUNTER → 2022-05-17 13:25 | Outpatient (BNVA) | payer OTHER, SELFPAY | PROVIDERS: PCP Family Medicine; Visit Provider Thoracic Surgery (Cardiothoracic Vascular Surgery) | DX: I65.23 Occlusion and stenosis of bilateral carotid arteries (principal) | CPT/HCPCS: 99203 ==

== ENCOUNTER 2022-07-04 09:52 | Emergency (ER) | payer OTHER, SELFPAY ==
[2022-07-04] VITALS (12 sets, daily range): BP systolic 83–107; BP diastolic 55–67; PULSE 59–84; RESP 13–19; TEMP 36.9; O2SAT 94–100; BMI 22.3
--- NOTE | 2022-07-04 10:09 | ECG_ITS ---
[facility] Test Date: 2022-07-04 Pat Name: Matthew Mederos Department: Room: Gender: Male Management Intern: : 1945 Requested By: Chong Solomon Order Number: [id number] Ayden MD: Marshall Mercedes M.D. Measurements Intervals [place] Rate: 61 P: 76 LA: 147 QRS: 30 QRSD: 93 T: 77 QT: 396 QTc: 402 Interpretive Statements SINUS RHYTHM WITH OCCASIONAL SUPRAVENTRICULAR PREMATURE COMPLEXES SEPTAL MYOCARDIAL INFARCTION , PROBABLY OLD [40+ ms Q WAVE IN V1/V2] Compared to ECG 03/26/2017 05:59:13 Left-axis deviation no longer present Myocardial infarct finding still present Electronically Signed On 07-04-2022 16:15:22 MANAGER OF PURCHASING by Marshall Mercedes M.D. [email or web address]
--- NOTE | 2022-07-04 10:16 | W.ED.CHESTPA ---
HPI - Chest Pain General: Chief Complaint: Chest Pain Stated Complaint: CP/SOB Time Seen by Provider: 07/04/22 10:02 Source: patient Mode of arrival: EMS History of Present Illness: 77-year-old male presents emergency room with complaint of chest pain. 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 He has a known history of coronary artery disease with carotid stenosis in the past. He is on Plavix. Patient relates he has been having chest pain intermittently often at rest usually at least once a day and occasionally more than once in a single day. Usually resolves spontaneously after about 10 to 15 minutes. He states he previously had a event and had intervention several years ago. MD complaint: chest pain Onset (ago): minute(s) Timing of current episode: episodic Prior episodes: Yes Onset: during rest and during exertion Pain location: substernal Pain radiation: none Severity: mild Quality: tightness and heaviness Relieving factors: nitroglycerin Exacerbating factors: nothing Associated symptoms: Deny abdominal pain, diaphoresis, dyspnea, fever(s), leg edema, nausea, palpitations, sense of impending doom, syncope or vomiting Treatment prior to arrival: none Review of Systems Const: Denies: fever(s), chills, fatigue, malaise or diaphoresis ENMT: Denies: throat pain, ear or mastoid pain, nasal discharge or nasal congestion Card: Reports: chest pain; Denies: palpitations, irregular heart rhythm, edema, swelling of feet/ankles or syncope Resp: Denies: dyspnea, productive cough, non-productive cough or wheezing GI: Denies: abdominal pain, nausea or vomiting : Denies: flank pain, dysuria, urinary frequency or urinary urgency Skin/Breast: Denies: rash or pruritus PFSH ED PFSH: Medical History Back pain BPH (benign prostatic hyperplasia) BPH loc w urin obs/LUTS High risk medication use History of atrial fibrillation History of GI bleed Hx of coronary artery disease Hx of hypercholesterolemia Hx of myocardial infarction Hx of sciatica Hx of TIA (transient ischemic attack) and stroke Hypercholesterolemia Immunization counseling Inflammatory arthritis Joint pain Myocardial infarction Osteoarthritis Osteoarthritis of hands, bilateral Seropositive rheumatoid arthritis of multiple sites Surgical History H/O colonoscopy 09/20/2019: sigmoid diverticulosis H/O esophagogastroduodenoscopy 09/20/2019: hiatal hernia, Barretts esophagus and hiatal hernia History of bunionectomy (07/09/18) [facility]. Dr. Taylor History of coronary angioplasty with insertion of stent (02/2017) 2 and 2016 2 History of coronary artery stent placement History of hip replacement (07/2009) Left, Total. [facility] Hx of cataract surgery S/P ORIF (open reduction internal fixation) fracture left forearm and right elbow Family History Father , at age 78 CAD (coronary artery disease) Myocardial infarction Mother , at age 83 Stroke Brother Stroke Denies family history of Anesthesia complication Bleeding disorder Social History Smoking and tobacco status: former smoker Quit status (tobacco): has quit using tobacco Year quit tobacco: 1986 Former quit date comment: 1 pack per day x 42 years Alcohol intake: never Household members: spouse Marital status: Current occupational status: retired History of recent travel: No Physical Exam Const: COMMON NORMALS: no acute distress GENERAL APPEARANCE: cooperative and comfortable ORIENTATION/CONSCIOUSNESS: Yes awake, Yes oriented to person, Yes oriented to place and Yes oriented to time HENMT: COMMON NORMALS: normocephalic, atraumatic, hearing grossly normal bilaterally, external ears normal, EAC's normal, TM's normal bilaterally, Normal nasal mucous membranes and turbinates present, moist oral mucous membranes and oropharynx normal HEAD & SCALP: normocephalic and atraumatic NOSE: Normal nasal mucous membranes and turbinates present EXTERNAL EAR: Yes external ears normal EXTERNAL AUDITORY CANAL: EAC's normal TYMPANIC MEMBRANE: TM's normal bilaterally Eye: COMMON NORMALS: Equal, round and reactive pupils present, EOMs intact bilaterally, conjunctivae normal and no scleral icterus CONJUNCTIVA: Yes conjunctivae normal PUPIL: Yes Equal, round and reactive pupils present Neck/C-Spine: COMMON NORMALS: full ROM, no lymphadenopathy, supple and no JVD Lymph: LYMPHATIC: no lymphadenopathy noted and no lymphedema noted Resp: COMMON NORMALS: normal respiratory effort, No retractions, No use of accessory muscles and clear to auscultation bilaterally AUSCULTATION: clear to auscultation bilaterally Cardio: COMMON NORMALS: no JVD, regular rate, regular rhythm and No murmurs present (Cardio) RATE: regular rate RHYTHM: regular rhythm GI: COMMON NORMALS: Soft to palpation and No hepatosplenomegaly present AUSCULTATION: Yes normoactive bowel sounds PALPATION: Yes Soft to palpation, No Tenderness to palpation present (GI), No Guarding due to palpation present (GI) and Yes No hepatosplenomegaly present Extremity: COMMON NORMALS: normal to inspection, capillary refill normal, no clubbing, cyanosis or edema, no calf tenderness and no pedal edema Neuro: SENSORIUM/ORIENTATION: Yes oriented to person, Yes oriented to place and Yes oriented to time Skin: COMMON NORMALS: no rashes or lesions noted GENERAL SKIN EXAM: no rashes or lesions noted Course Vital Signs: Vital signs: Vital Signs Temperature 98.4 F 07/04/22 10:01 Pulse Rate 77 07/04/22 15:57 Respiratory Rate 13 07/04/22 15:00 Blood Pressure 106/62 07/04/22 15:57 Pulse Oximetry 94 07/04/22 15:57 Oxygen Delivery Me thod 07/04/22 12:30 Oxygen Flow Rate 2 07/04/22 11:17 MDM - Chest Pain Medical Decision Making EKG shows no acute ST changes. We will go ahead and discharge the patient home serial enzymes negative discussed findings patient also of her outpatient Lexiscan sestamibi stress test. Medical Records I reviewed the patient's medical records. Lab Data I reviewed the patient's lab results. 07/04/22 10:45 07/04/22 10:45 Radiology Impressions Chest X-Ray 07/04/22 15:35 IMPRESSION: Mild chronic emphysema and partially calcified aorta. Laboratory Results WBC 11.9 10^3/uL (4.0-10.0) H 07/04/22 10:45 RBC 4.52 10^6/uL (4.1-5.3) 07/04/22 10:45 Hgb 13.9 g/dL (11.7-16.6) 07/04/22 10:45 Hct 42.4 % (42.0-52.0) 07/04/22 10:45 MCV 93.8 fl (80-94) 07/04/22 10:45 MCH 30.8 pg (28.0-34.0) 07/04/22 10:45 MCHC 32.8 g/dL (30.0-36.0) 07/04/22 10:45 RDW 12.5 % (12.1-15.1) 07/04/22 10:45 Plt Count 238 10^3/cmm (130-400) 07/04/22 10:45 MPV 9.1 fL (7.4-10.4) 07/04/22 10:45 Neut % (Auto) 85.7 % 07/04/22 10:45 Lymph % (Auto) 7.3 % 07/04/22 10:45 Rincon % (Auto) 5.9 % 07/04/22 10:45 Eos % (Auto) 0.3 % 07/04/22 10:45 Baso % (Auto) 0.5 % 07/04/22 10:45 Neut # (Auto) 10.19 10^3/uL (1.8-7.7) H 07/04/22 10:45 Lymph # (Auto) 0.9 10^3/uL (0.8-4.8) 07/04/22 10:45 Rincon # (Auto) 0.7 10^3/uL (0.2-0.9) 07/04/22 10:45 Eos # (Auto) 0.0 10^3/uL (0.0-0.8) 07/04/22 10:45 Baso # (Auto) 0.1 10^3/uL (0.0-0.1) 07/04/22 10:45 Nucleated RBC % (auto) 0 % 07/04/22 10:45 Nucleated RBCs # 0.0 /100WBC 07/04/22 10:45 Sodium 137 mmol/L (136-145) 07/04/22 10:45 Potassium 4.1 mmol/L (3.5-5.1) 07/04/22 10:45 Chloride 104 mmol/L (98-107) 07/04/22 10:45 Carbon Dioxide 22 mmol/L (22-29) 07/04/22 10:45 Anion Gap 15.1 (5-19) 07/04/22 10:45 BUN 12 mg/dL (8-23) 07/04/22 10:45 Creatinine 0.8 mg/dL (0.7-1.2) 07/04/22 10:45 GFR Calculation Not Reportable 07/04/22 10:45 Glucose 93 mg/dL (65-115) 07/04/22 10:45 Calculated Osmolality 283 mOsm/kg (285-295) L 07/04/22 10:45 Calcium 9.1 mg/dL (8.5-10.5) 07/04/22 10:45 Total Bilirubin 0.6 mg/dL (0.15-1.2) 07/04/22 10:45 AST 13 U/L (0-40) 07/04/22 10:45 ALT 11 U/L (0-41) 07/04/22 10:45 Alkaline Phosphatase 78 U/L (40-130) 07/04/22 10:45 Troponin T Baseline 17 ng/L (0-15) H 07/04/22 10:45 Troponin T 120 Minute 15.21 ng/L (0-15) H 07/04/22 13:34 Delta Troponin T -1.79 ABS# (0-10) L 07/04/22 13:34 NT-Pro-B Natriuret Pep 140 pg/mL (0-450) 07/04/22 10:45 Total Protein 5.4 g/dL (6.6-8.7) L 07/04/22 10:45 Albumin 3.5 g/dL (3.5-5.2) 07/04/22 10:45 Globulin 1.9 g/dL (1.3-4.6) 07/04/22 10:45 Discharge Plan Discharge Patient Disposition: Home Clinical Impression: Hypotension, Viral URI with cough Condition: Stable Prescriptions: Discontinued lisinopril 5 mg tablet 2.5 mg PO DAILY No Action donepezil 5 mg tablet 5 mg PO DAILY lidocaine 5 % ointment 1 applic topical DAILY PRN (Reason: Pain) tamsulosin 0.4 mg capsule 0.4 mg PO BID Qty: 180 3RF sennosides [Senna Laxative] 8.6 mg tablet 8.6 mg PO BID@06,20 metoprolol tartrate 50 mg tablet 12.5 mg PO BID@06,20 finasteride 5 mg tablet 5 mg PO DAILY@06 simvastatin 80 mg tablet 40 mg PO BEDTIME@2000 ferrous sulfate 325 mg (65 mg iron) tablet 325 mg PO DAILY sertraline 100 mg tablet 100 mg PO DAILY multivitamin [Multiple Vitamins] Tablet 1 tab PO DAILY diclofenac sodium 1 % gel 4 g topical QID PRN (Reason: Pain) Rx Instructions: apply to affected area as needed Discharge Orders: Discharge ED (Routine); Ordered 07/04/22 Ordered By: Ilan Barron Referrals: Elda Corral MD [Primary Care Provider] - Discharge Diet: Usual diet Discharge Activity: Increase activity as tolerated Patient Instructions: Opioid Safety, Pain Management Coding Level of Care Code ED Professional Fee Coder for Maya Hogue
--- NOTE | 2022-07-04 10:42 | PC.NURSE ---
PT PLACED ON CONTINUOUS NIBP, SPO2, AND CM
[2022-07-04 11:01] LABS: Basophils # 0.1 10^3/uL (0.0-0.1); Basophils % 0.5 %; Eosinophils % 0.3 %; Hematocrit 42.4 % (42.0-52.0); Hemoglobin 13.9 g/dL (11.7-16.6); Lymphocytes # 0.9 10^3/uL (0.8-4.8); Lymphocytes % 7.3 %; Mean Corpuscular HGB Conc 32.8 g/dL (30.0-36.0); Mean Corpuscular Hemoglobin 30.8 pg (28.0-34.0); Mean Corpuscular Volume 93.8 fl (80-94); Mean Platelet Volume 9.1 fL (7.4-10.4); Monocytes # 0.7 10^3/uL (0.2-0.9); Monocytes % 5.9 %; Neutrophils # 10.19 10^3/uL (1.8-7.7); Neutrophils % 85.7 %; Nucleated Red Blood Cells % 0 %; Platelet Count 238 10^3/cmm (130-400); Red Blood Count 4.52 10^6/uL (4.1-5.3); Red Cell Distribution Width 12.5 % (12.1-15.1); White Blood Count 11.9 10^3/uL (4.0-10.0)
[2022-07-04] MEDS: sodium chloride 0.9% 1,000 ML 999 ML IV ×2 (11:07→14:06)
[2022-07-04 11:37] LABS: Troponin(5th) Baseline 17 ng/L (0-15)
[2022-07-04 11:44] LABS: Alanine Aminotransferase 11 U/L (0-41); Albumin Level 3.5 g/dL (3.5-5.2); Alkaline Phosphatase 78 U/L (40-130); Anion Gap 15.1 (5-19); Aspartate Amino Transferase 13 U/L (0-40); Blood Urea Nitrogen 12 mg/dL (8-23); Calcium 9.1 mg/dL (8.5-10.5); Carbon Dioxide 22 mmol/L (22-29); Chloride 104 mmol/L (98-107); Globulin 1.9 g/dL (1.3-4.6); Glucose 93 mg/dL (65-115); NT Pro B Type Natriuretic Pept 140 pg/mL (0-450); Osmolality Calculated 283 mOsm/kg (285-295); Potassium 4.1 mmol/L (3.5-5.1); Sodium 137 mmol/L (136-145); Total Bilirubin 0.6 mg/dL (0.15-1.2); Total Protein 5.4 g/dL (6.6-8.7)
--- NOTE | 2022-07-04 12:59 | ECG_ITS ---
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 Measurements Intervals Ben Bolt Rate: 67 P: 72 MS: 154 QRS: 49 QRSD: 92 T: 71 QT: 388 QTc: 410 Interpretive Statements SINUS RHYTHM WITH OCCASIONAL SUPRAVENTRICULAR PREMATURE COMPLEXES SEPTAL MYOCARDIAL INFARCTION , PROBABLY OLD [40+ ms Q WAVE IN V1/V2] Compared to ECG 07/04/2022 10:09:24 No significant changes Electronically Signed On 07-04-2022 16:18:42 ACTING PROFESSOR by Marshall Mercedes M.D. [id number]
[2022-07-04 14:03] LABS: Troponin 5 2HR 15.21 ng/L (0-15)
[2022-07-04 14:04] LABS: Troponin 5 2HR Delta -1.79 ABS# (0-10)
--- NOTE | 2022-07-04 15:30 | PC.NURSE ---
PT AMBULATED DOWN HALLWAY. PT HAD SLIGHT LIMP IN LEFT LEG AT FIRST BUT WAS ABLE TO EVEN OUT HIS STRIDE. PT STATES HE FEELS GOOD
--- NOTE | 2022-07-04 15:35 | XR_ITS ---
WS: [id number] EXAMINATION: XR chest 1V portable [id number] REASON FOR EXAM: dyspnea/cough COMPARISON: 07/04/2020 ORDER DATE: 07/04/2022 3:39 PM TECHNIQUE: A single, portable frontal chest x-ray was obtained. X-RAY FINDINGS: Lungs: Hyperinflated lungs from emphysema. No pneumonia. Normal vasculature. Cardiac size: Normal. Mediastinum/Aorta: Mild atherosclerosis aorta. Bones: Normal. XR/XR chest 1V portable [id number] IMPRESSION: Mild chronic emphysema and partially calcified aorta.
--- NOTE | 2022-07-16 09:42 | DCPLANNER ---
Addendum entered by Armida Trejo 09/28/22 07:31: Patient had a follow up appointment at [facility] - patient did attend appointment. Addendum entered by Armida Trejo 07/17/22 13:35: Patient has a follow up appointment scheduled for Saturday, September 12, 2022 at 2:[address] Shaffer at [facility]. Clinic will call patient with appointment information. Original Note: biodiesel product development manager had message to schedule a follow up appointment for patient with cardiology. biodiesel product development manager sent patients information to the front office staff at cardiology. Patients information will be printed and reviewed. Clinic will call patient with appointment information.
== END 2022-07-04 16:00 | disposition home or self-care (01) ==
PROVIDERS: Physician Assistant; Emergency Provider Family Medicine; PCP Family Medicine
DX: J06.9 Acute upper respiratory infection, unspecified (principal); I95.9 Hypotension, unspecified; Z87.891 Personal history of nicotine dependence; Z95.5 Presence of coronary angioplasty implant and graft; I25.10 Atherosclerotic heart disease of native coronary artery without angina pectoris; I25.2 Old myocardial infarction; Z86.73 Personal history of transient ischemic attack (TIA), and cerebral infarction without residual deficits
CPT/HCPCS: 36415; 71045; 80053; 83880; 84484; 85025; 93005; 96360; 96361; 99285; J7030

== ENCOUNTER 2022-08-04 10:55 | Outpatient (CLI) | payer OTHER, SELFPAY ==
--- NOTE | 2022-08-04 | PETR_ITS ---
PROCEDURE INFORMATION: Exam: PET/CT Skull Base to Mid-thigh Exam date and time: 08/04/2022 12:07 PM Age: 77 years old Clinical indication: Abnormal findings; Lung mass noted on recent exam; Prior surgery; Surgery type: RT ear vein. LABS AND CLINICAL REPORTS: Glucose: 101 mg/dl Treatment strategy for malignancy (PET staging): Initial Staging (PI) TECHNIQUE: Imaging protocol: Following at least four-hour fasting and following the injection of F-18-FDG, low dose CT images were obtained. Then, PET images were obtained. Attenuation corrected images were constructed using the CT scan. Fused images of PET and CT were reviewed. The standardized uptake values (SUV) reported below are maximum values within a region of interest, expressed in gm/ml. Exam includes orbital meatal line to mid-thigh. Radiopharmaceutical: 12.08 mCi F-18 FDG (Fluorodeoxyglucose), IV. Time of imaging post radiopharmaceutical administration: 1 hour Injection site: Information is not provided COMPARISON: No relevant recent CT chest is available for review. There is CT neck w con 02/04/2020 and CTA of abdomen pelvis 09/26/2017 FINDINGS: Brain: Visualized brain has normal physiologic uptake. Paranasal sinuses: No abnormal uptake. There is significant partial opacification of the right maxillary sinus with no air-fluid level suggestive of chronic sinusitis. Pharynx: No abnormal uptake. Larynx: No abnormal uptake. Lungs, pleura and trachea: No abnormal uptake. No lung nodules or masses. Minimal linear dependent subpleural density in the lower lobes is likely atelectatic. No pleural effusion. Heart: Normal physiologic uptake. There is no cardiomegaly. Severe coronary artery calcification is present. There is no pericardial effusion. Mediastinal space: No abnormal uptake. There is moderate size fat containing hiatal hernia. Liver: No abnormal uptake. 1.4 cm simple cyst in the left hepatic lobe on image 87. Gallbladder and bile ducts: No abnormal uptake. Small calcified gallstones in the gallbladder with no signs of acute cholecystitis with no biliary dilatation. Pancreas: No abnormal uptake. Spleen: No abnormal uptake. The spleen is normal in size with a few small calcified granulomas. Adrenal glands: No abnormal uptake. Stable in size since 2018 1.3 cm right adrenal nodule represents benign adrenal cortical adenoma with corresponding low density of 14 Hounsfield units. The left adrenal is normal. Kidneys and ureters: Normal physiologic uptake. No hydronephrosis. 4.2 cm simple cyst exophytic anteriorly from the mid/upper pole of the left kidney, previously measuring 4 cm. Stomach and bowel: No abnormal uptake. No abnormal dilatation of the bowel. Mild diverticulosis of the sigmoid colon. Vasculature: No abnormal uptake. No aortic aneurysm. Lymph nodes: No abnormal uptake. No lymphadenopathy in the head, neck, chest, abdomen, pelvis, and extremities. 1 cm calcified granuloma within the subcarinal lymph node represents benign finding. Bones/joints: Status post left hip replacement. Increased synovial uptake around the left hip prosthesis is likely benign. Soft tissues: No abnormal uptake in the visualized head, neck, chest, abdomen, pelvis, and extremities. [id number] IMPRESSION: No abnormal radiotracer uptake concerning for malignancy. Benign linear uptake around the left hip prosthesis. Additional benign non FDG avid findings (right maxillary sinusitis, moderate size fat containing hiatal hernia, cholelithiasis, sequela of exposure to granulomatous disease with calcified granulomas in the subcarinal lymph node and in the spleen, 1.3 cm benign right adrenal cortical adenoma, simple cyst in the left kidney, mild diverticulosis of the sigmoid colon).
== END 2022-08-04 10:56 | disposition home or self-care (01) ==
LOC: RAD 08-06 06:28
PROVIDERS: PCP Family Medicine; Visit Provider Family Medicine
DX: R91.8 Other nonspecific abnormal finding of lung field (principal)
CPT/HCPCS: 78815; A9552

== ENCOUNTER → 2022-09-12 12:31 | Outpatient (BNVA) | payer OTHER, SELFPAY | PROVIDERS: PCP Family Medicine; Visit Provider Otolaryngology | DX: R09.89 Other specified symptoms and signs involving the circulatory and respiratory systems (principal); R13.10 Dysphagia, unspecified; R05.8 Other specified cough; Z87.891 Personal history of nicotine dependence; I25.10 Atherosclerotic heart disease of native coronary artery without angina pectoris; I10 Essential (primary) hypertension; E78.00 Pure hypercholesterolemia, unspecified; I48.0 Paroxysmal atrial fibrillation | CPT/HCPCS: 31575; 99203; 99214 ==

== ENCOUNTER 2022-10-05 09:19 | Outpatient (CLI) | payer OTHER, SELFPAY ==
--- NOTE | 2022-10-05 09:33 | FL_ITS ---
WS: [id number] Modified barium swallow, 10/05/2022 Clinical Data: Other dysphagia Comparison: None. Fluoroscopy time: 1min [id number] # of spot films: 0 Findings: The patient swallowed the barium without hesitation. There is no penetration or aspiration. There was posterior osteophyte impingement on the hypopharynx but it did not impede the flow of barium. There was no significant barium pooling. The patient ingested a barium tablet and it traveled normally fro m the oral pharynx through the hypopharynx into the esophagus and stomach without hesitation. FL/FL barium swallow modifd [id number] Impression: Negative modified barium swallow.
== END 2022-10-05 09:20 | disposition home or self-care (01) ==
PROVIDERS: PCP Family Medicine; Visit Provider Family Medicine
DX: K22.719 Barrett's esophagus with dysplasia, unspecified (principal); R13.19 Other dysphagia
CPT/HCPCS: 74230

== ENCOUNTER 2022-11-29 06:28 | Outpatient (CLI) | payer OTHER, SELFPAY ==
--- NOTE | 2022-11-29 07:00 | USCV_ITS ---
[place] Age: 77 Gender: M : 1945 Exam Date: 11/29/2022 06:48 Ordering Phys: Garrett Gomez MD (Andy) ([email or web address] [place] Technologist: VALENCIA Exam Location: [facility] [place] Indication: RIGHT SIDED NECK/HEAD PAIN, EVAL FOR CAROTID STENOSIS Risk Factors: Previous Vascular Surgery: Right Brachial BP: / Left Brachial BP: / Right Left Velocity (cm/s) Spectral Plaque Velocity (cm/s) Spectral Plaque Syst/Diast Broadening Syst/Diast Broadening 60.60/ 17.10 Prox CCA 70.90 / 16.20 65.60/ 19.30 Mid CCA 73.50 / 17.90 61.40/ 24.90 Distal CCA 65.80 / 17.90 23.50/ 9.20 Prox ICA 56.50 / 26.70 34.10/ 10.10 Mid ICA 47.20 / 19.30 54.40/ 23.20 Distal ICA 39.10 / 13.00 85.80 ECA 54.30 0.83 ICA/CCA 0.77 Antegrade Vertebral Antegrade 39.30/ 6.80 cm/s 34.40/ 8.90 cm/s Tri Subclavian Tri 64.70 122.8 0 CONCLUSIONS Right ICA stenosis <50%. Mild atheromatous plaque right carotid bulb/ICA. Left ICA stenosis <50%. Moderate atheromatous plaque left carotid bulb/ICA. Normal antegrade Doppler flow noted in the right vertebral artery. Normal antegrade Doppler flow noted in the left vertebral artery. David Page MD (Electronically Signed) Final Date: 29 Nov 2022 16:38 S
== END 2022-11-29 06:29 | disposition home or self-care (01) ==
LOC: RAD 06:30
PROVIDERS: PCP Family Medicine; Visit Provider Thoracic Surgery (Cardiothoracic Vascular Surgery)
DX: I65.23 Occlusion and stenosis of bilateral carotid arteries (principal); R09.89 Other specified symptoms and signs involving the circulatory and respiratory systems
CPT/HCPCS: 93880

== ENCOUNTER 2022-12-01 08:13 | Emergency (ER) | payer OTHER, SELFPAY ==
--- NOTE | 2022-12-01 08:19 | W.ED.NECK ---
HPI - Neck Pain/Injury General: Chief Complaint: Neck Pain/Injury Stated Complaint: lump on back of neck, pain Time Seen by Provider: 12/01/22 08:18 Source: patient Mode of arrival: ambulatory History of Present Illness: 77-year-old male presents to the emergency room with complaint of a lump on the back of his neck. He is complaining of neck pain. This has been going on for over a month. He intermittently has sharp chest discomfort in the epigastric lower chest area that lasts for a second or 2 and then resolves. They are also stating he has difficulty with gait at times he has fallen many times all of this has been going on for quite some time. His biggest reason for coming in today is increasing unsteadiness on his feet and worsening neck pain no recent injury trauma fall that he can recall. MD complaint: neck pain Onset (ago): month(s) Severity: moderate Quality: sharp Duration: constant Relieving factors: none Exacerbating factors: none Associated symptoms: Denies dysphagia, difficulty walking, dizziness, fevers/chills, headache(s), nausea, swollen glands, tingling or weakness Review of Systems Const: Denies: fever(s), chills, body aches, change in appetite, fatigue or malaise ENMT: Denies: throat pain, ear or mastoid pain, nasal discharge or nasal congestion Card: Denies: chest pain, edema, dyspnea on exertion or orthopnea Resp: Denies: dyspnea, productive cough or non-productive cough GI: Denies: nausea or dysphagia : Denies: flank pain, dysuria, urinary frequency or urinary urgency Skin/Breast: Denies: rash or pruritus Neuro: Denies: headache(s), difficulty walking or dizziness PFS ED PFSH: Medical History Back pain BPH (benign prostatic hyperplasia) BPH loc w urin obs/LUTS Carotid stenosis, bilateral High risk medication use History of atrial fibrillation History of GI bleed Hx of coronary artery disease Hx of hypercholesterolemia Hx of myocardial infarction Hx of sciatica Hx of TIA (transient ischemic attack) and stroke Hypercholesterolemia Immunization counseling Inflammatory arthritis Joint pain Myocardial infarction Osteoarthritis Osteoarthritis of hands, bilateral Seropositive rheumatoid arthritis of multiple sites Surgical History H/O colonoscopy 09/20/2019: sigmoid diverticulosis H/O esophagogastroduodenoscopy 09/20/2019: hiatal hernia, Barretts esophagus and hiatal hernia History of bunionectomy (07/09/18) [facility]. Dr. Taylor History of coronary angioplasty with insertion of stent (02/2017) 2 and 2016 2 History of coronary artery stent placement History of hip replacement (07/2009) Left, Total. [facility] Hx of cataract surgery S/P ORIF (open reduction internal fixation) fracture left forearm and right elbow Family History Father , at age 78 CAD (coronary artery disease) Myocardial infarction Mother , at age 83 Stroke Brother Stroke Denies family history of Anesthesia complication Bleeding disorder Social History Smoking and tobacco status: former smoker Quit status (tobacco): has quit using tobacco Year quit tobacco: 1986 Former quit date comment: Quit 36 yrs ago Alcohol intake: never Substance/Drug Use: never Household members: spouse Marital status: Current occupational status: retired Physical Exam Const: GENERAL APPEARANCE: cooperative and comfortable ORIENTATION/CONSCIOUSNESS: Yes awake, Yes oriented to person, Yes oriented to place and Yes oriented to time HENMT: COMMON NORMALS: normocephalic, atraumatic and hearing grossly normal bilaterally HEAD & SCALP: normocephalic and atraumatic Resp: COMMON NORMALS: normal respiratory effort, No retractions, No use of accessory muscles and clear to auscultation bilaterally AUSCULTATION: clear to auscultation bilaterally Cardio: COMMON NORMALS: regular rate, regular rhythm and No murmurs present (Cardio) RATE: regular rate RHYTHM: regular rhythm GI: COMMON NORMALS: Soft to palpation and No hepatosplenomegaly present AUSCULTATION: Yes normoactive bowel sounds PALPATION: Yes Soft to palpation, No Tenderness to palpation present (GI), No Guarding due to palpation present (GI) and Yes No hepatosplenomegaly present Extremity: COMMON NORMALS: normal to inspection, capillary refill normal, no clubbing, cyanosis or edema, no calf tenderness and no pedal edema Neuro: SENSORIUM/ORIENTATION: Yes oriented to person, Yes oriented to place and Yes oriented to time Skin: COMMON NORMALS: no rashes or lesions noted GENERAL SKIN EXAM: no rashes or lesions noted Course Vital Signs: Vital signs: Vital Signs Temperature 98.1 F 12/01/22 08:22 Pulse Rate 63 12/01/22 08:22 Respiratory Rate 16 12/01/22 08:22 Blood Pressure 130/79 12/01/22 09:17 Pulse Oximetry 98 12/01/22 09:17 Oxygen Delivery Me thod Room Air 12/01/22 09:17 MDM - Neck Pain/Injury Medical Decision Making EKG no acute ST changes. Cardiac enzymes are negative. His neck pain appears to be more musculoskeletal in nature. We will discharge him home with steroids and anti-inflammatories. They are also concerned about his gait and memory issues he has an appointment upcoming week with neurology encouraged him to keep that follow-up if he has any further problems in the emergency room his primary care doctor. Medical Records I reviewed the patient's medical records. Lab Data I reviewed the patient's lab results. 12/01/22 09:01 12/01/22 09:01 Radiology Impressions Cervical Spine CT 12/01/22 08:35 IMPRESSION: No acute findings. Degenerative changes with mild malalignment stable since prior exam of 10/30/2018. Head CT 12/01/22 08:35 IMPRESSION: No acute intracranial abnormality. Laboratory Results WBC 8.6 10^3/uL (4.0-10.0) 12/01/22 09:01 RBC 5.00 10^6/uL (4.1-5.3) 12/01/22 09:01 Hgb 15.0 g/dL (11.7-16.6) 12/01/22 09:01 Hct 45.6 % (42.0-52.0) 12/01/22 09:01 MCV 91.2 fl (80-94) 12/01/22 09:01 MCH 30.0 pg (28.0-34.0) 12/01/22 09:01 MCHC 32.9 g/dL (30.0-36.0) 12/01/22 09:01 RDW 12.8 % (12.1-15.1) 12/01/22 09:01 Plt Count 227 10^3/cmm (130-400) 12/01/22 09:01 MPV 9.2 fL (7.4-10.4) 12/01/22 09:01 Neut % (Auto) 75.6 % 12/01/22 09:01 Lymph % (Auto) 13.5 % 12/01/22 09:01 [place] % (Auto) 9.1 % 12/01/22 09:01 Eos % (Auto) 1.0 % 12/01/22 09:01 Baso % (Auto) 0.6 % 12/01/22 09:01 Neut # (Auto) 6.48 10^3/uL (1.8-7.7) 12/01/22 09:01 Lymph # (Auto) 1.2 10^3/uL (0.8-4.8) 12/01/22 09:01 [place] # (Auto) 0.8 10^3/uL (0.2-0.9) 12/01/22 09:01 Eos # (Auto) 0.1 10^3/uL (0.0-0.8) 12/01/22 09:01 Baso # (Auto) 0.1 10^3/uL (0.0-0.1) 12/01/22 09:01 Nucleated RBC % (auto) 0 % 12/01/22 09:01 Nucleated RBCs # 0.0 /100WBC 12/01/22 09:01 Sodium 136 mmol/L (136-145) 12/01/22 09:01 Potassium 4.4 mmol/L (3.5-5.1) 12/01/22 09:01 Chloride 103 mmol/L (98-107) 12/01/22 09:01 Carbon Dioxide 22 mmol/L (22-29) 12/01/22 09:01 Anion Gap 15.4 (5-19) 12/01/22 09:01 BUN 9 mg/dL (8-23) 12/01/22 09:01 Creatinine 0.7 mg/dL (0.7-1.2) 12/01/22 09:01 GFR Calculation Not Reportable 12/01/22 09:01 Glucose 101 mg/dL (65-115) 12/01/22 09:01 Calculated Osmolality 281 mOsm/kg (285-295) L 12/01/22 09:01 Calcium 9.6 mg/dL (8.5-10.5) 12/01/22 09:01 Total Bilirubin 0.4 mg/dL (0.15-1.2) 12/01/22 09:01 AST 16 U/L (0-40) 12/01/22 09:01 ALT 12 U/L (0-41) 12/01/22 09:01 Alkaline Phosphatase 104 U/L (40-130) 12/01/22 09:01 Troponin T Baseline 12 ng/L (0-15) 12/01/22 09:01 Troponin T 120 Minute 10.95 ng/L (0-15) 12/01/22 11:03 Delta Troponin T -1.05 ABS# (0-10) L 12/01/22 11:03 Total Protein 6.2 g/dL (6.6-8.7) L 12/01/22 09:01 Albumin 3.5 g/dL (3.5-5.2) 12/01/22 09:01 Globulin 2.7 g/dL (1.3-4.6) 12/01/22 09:01 Urine Color Yellow (Yellow) 12/01/22 10:30 Urine Appearance Clear (CLEAR) 12/01/22 10:30 Urine pH 8 (5-7) H 12/01/22 10:30 Ur Specific [place] 1.010 (1.005-1.030) 12/01/22 10:30 Urine Protein Neg (Negative) 12/01/22 10:30 Urine Glucose (UA) Norm (Normal) 12/01/22 10:30 Urine Ketones Negative (Negative) 12/01/22 10:30 Urine Blood Neg (Negative) 12/01/22 10:30 Urine Nitrate Negative (Negative) 12/01/22 10:30 Urine Bilirubin Neg (Negative) 12/01/22 10:30 Prot Sulfosalicylic Acd Negative (Negative) 12/01/22 10:30 Urine Urobilinogen Norm mg/dL (Negative) 12/01/22 10:30 Ur Leukocyte Esterase Negative (Negative) 12/01/22 10:30 Discharge Plan Discharge Patient Disposition: Home Clinical Impression: Acute neck pain, Atypical chest pain Condition: Stable Prescriptions: New tizanidine 4 mg tablet 2 mg PO Q6H PRN (Reason: muscle spasticity) Qty: 10 0RF Rx Instructions: do not exceed 3 doses per 24 hrs diclofenac sodium 75 mg tablet,delayed release (DR/EC) 75 mg PO Q12H PRN (Reason: pain) Qty: 20 0RF Medrol (Victor Manuel) 4 mg tablets,dose pack See Rx Instructions .ROUTE .COMPLEX Qty: 21 0RF Rx Instructions: orally per package directions Discontinued diclofenac sodium 1 % gel 4 g topical QID PRN (Reason: Pain) Rx Instructions: apply to affected area as needed No Action donepezil 5 mg tablet 5 mg PO DAILY lidocaine 5 % ointment 1 applic topical DAILY PRN (Reason: Pain) tamsulosin 0.4 mg capsule 0.4 mg PO BID Qty: 180 3RF metoprolol tartrate 50 mg tablet 12.5 mg PO BID@06,20 finasteride 5 mg tablet 5 mg PO DAILY@06 simvastatin 80 mg tablet 40 mg PO BEDTIME@1999 sertraline 100 mg tablet 100 mg PO DAILY multivitamin [Multiple Vitamins] Tablet 1 tab PO DAILY aspirin 81 mg tablet,delayed release (DR/EC) 81 mg PO DAILY Qty: 90 3RF guaifenesin 200 mg tablet 200 mg PO TID Discharge Orders: Discharge ED (Routine); Ordered 12/01/22 Ordered By: Ilan Barron Referrals: Elda Corral MD [Primary Care Provider] - Patient Instructions: Opioid Safety, Pain Management Coding Level of Care Code ED Recreational Programs Director for Maya Hogue
[2022-12-01 08:22] VITALS: BP 157/101; PULSE 63; RESP 16; TEMP 36.7; O2SAT 97
--- NOTE | 2022-12-01 08:35 | CTR_ITS ---
PROCEDURE INFORMATION: Exam: CT Cervical Spine Without Contrast Exam date and time: 12/01/2022 8:42 AM Age: 77 years old Clinical indication: Neck pain; Patient HX: Pain in neck x 2 weeks, new onset of vertigo TECHNIQUE: Imaging protocol: Computed tomography of the cervical spine without contrast. Radiation optimization: All CT scans at this facility use at least one of these dose optimization techniques: automated exposure control; mA and/or kV adjustment per patient size (includes targeted exams where dose is matched to clinical indication); or iterative reconstruction. REPORTING DATA: Count of CT and Cardiac NM exams in prior 12 months: This patient has received [address] and 0 known cardiac nuclear medicine studies in the 12 months prior to the current study. COMPARISON: [id number] 08/04/2022, MRI cervical spine 10/30/2018 RADIATION DOSE METRICS: Total DLP (mGy-cm): 210 FINDINGS: Bones/joints: No acute fracture. Stable grade 1 anterolisthesis of C4 and C7, and slight grade 1 retrolisthesis of C3. Stable severe loss in height of all cervical discs with the exception of C2-C3 and C4-C5. Stable moderate spinal stenosis at C3-C4 and C4-C5 level contributed by marginal disc osteophyte complexes and retrolisthesis of C3 and anterolisthesis of C4. Stable severe hypertrophic degenerative changes in the right C4-C5 facet joint contributing to severe right foraminal stenosis at C4-C5 level. Lungs: Lung apices are normal. Soft tissues: Unremarkable. CT/CT cervical spin wo con* [id number] IMPRESSION: No acute findings. Degenerative changes with mild malalignment stable since prior exam of 10/30/2018.
--- NOTE | 2022-12-01 08:35 | CTR_ITS ---
PROCEDURE INFORMATION: Exam: CT Head Without Contrast Exam date and time: 12/01/2022 8:42 AM Age: 77 years old Clinical indication: Pain; Headache and other: Vertigo; Headache not specified; Additional info: Dizziness, vertigo, ataxia TECHNIQUE: Imaging protocol: Computed tomography of the head without contrast. Radiation optimization: All CT scans at this facility use at least one of these dose optimization techniques: automated exposure control; mA and/or kV adjustment per patient size (includes targeted exams where dose is matched to clinical indication); or iterative reconstruction. REPORTING DATA: Count of CT and Cardiac NM exams in prior 12 months: This patient has received [address] and 0 known cardiac nuclear medicine studies in the 12 months prior to the current study. COMPARISON: CT head wo con* [id number] 11/08/2020 2:45 PM RADIATION DOSE METRICS: Total DLP (mGy-cm): 1154.51 FINDINGS: Brain: No acute intracranial hemorrhage. No edema. No mass effect. No focal abnormality in brain parenchyma. Cerebral ventricles: No hydrocephalus. The ventricles and sulci are prominent in size in keeping with brain atrophy. Paranasal sinuses: Visualized sinuses are unremarkable. No fluid levels. Mastoid air cells: No mastoid effusion. Bones/joints: No acute fracture. No suspicious lytic or sclerotic bone lesions. Soft tissues: Unremarkable. CT/CT head wo con* [id number] IMPRESSION: No acute intracranial abnormality.
--- NOTE | 2022-12-01 08:36 | ECG_ITS ---
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 Measurements Intervals [place] Rate: 88 P: 0 MA: 0 QRS: 13 QRSD: 96 T: 48 QT: 365 QTc: 443 Interpretive Statements Sinus rhythm with frequent multiform premature atrial contractions. SEPTAL MYOCARDIAL INFARCTION , OF INDETERMINATE AGE [40+ ms Q WAVE IN V1/V2] Compared to ECG 07/04/2022 12:59:51 Myocardial infarct finding still present Electronically Signed On 12-01-2022 9:56:48 CDT by Marshall Mercedes M.D. [email or web address]/[id number] [email or web address]
--- NOTE | 2022-12-01 08:59 | ECG_ITS ---
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 Measurements Intervals [place] Rate: 76 P: 0 PA: 0 QRS: 27 QRSD: 97 T: 52 QT: 369 QTc: 417 Interpretive Statements Sinus rhythm multiformed premature atrial contractions. SEPTAL MYOCARDIAL INFARCTION , OF INDETERMINATE AGE [40+ ms Q WAVE IN V1/V2] Compared to ECG 07/04/2022 12:59:51 Myocardial infarct finding still present Electronically Signed On 12-01-2022 9:57:09 CDT by Marshall Mercedes M.D. [id number]
[2022-12-01] MEDS: ketorolac 30 mg/mL INJ 15 MG IVP (09:13)
[2022-12-01 09:17] VITALS: BP 130/79; O2SAT 98
[2022-12-01 09:22] LABS: Basophils # 0.1 10^3/uL (0.0-0.1); Basophils % 0.6 %; Eosinophils # 0.1 10^3/uL (0.0-0.8); Hematocrit 45.6 % (42.0-52.0); Lymphocytes # 1.2 10^3/uL (0.8-4.8); Lymphocytes % 13.5 %; Mean Corpuscular HGB Conc 32.9 g/dL (30.0-36.0); Mean Corpuscular Volume 91.2 fl (80-94); Mean Platelet Volume 9.2 fL (7.4-10.4); Monocytes # 0.8 10^3/uL (0.2-0.9); Monocytes % 9.1 %; Neutrophils # 6.48 10^3/uL (1.8-7.7); Neutrophils % 75.6 %; Nucleated Red Blood Cells % 0 %; Platelet Count 227 10^3/cmm (130-400); Red Cell Distribution Width 12.8 % (12.1-15.1); White Blood Count 8.6 10^3/uL (4.0-10.0)
[2022-12-01 09:38] LABS: Alanine Aminotransferase 12 U/L (0-41); Albumin Level 3.5 g/dL (3.5-5.2); Alkaline Phosphatase 104 U/L (40-130); Anion Gap 15.4 (5-19); Aspartate Amino Transferase 16 U/L (0-40); Blood Urea Nitrogen 9 mg/dL (8-23); Calcium 9.6 mg/dL (8.5-10.5); Carbon Dioxide 22 mmol/L (22-29); Chloride 103 mmol/L (98-107); Globulin 2.7 g/dL (1.3-4.6); Glucose 101 mg/dL (65-115); Osmolality Calculated 281 mOsm/kg (285-295); Potassium 4.4 mmol/L (3.5-5.1); Sodium 136 mmol/L (136-145); Total Bilirubin 0.4 mg/dL (0.15-1.2); Total Protein 6.2 g/dL (6.6-8.7)
[2022-12-01 09:39] LABS: Troponin(5th) Baseline 12 ng/L (0-15)
[2022-12-01 10:35] LABS: Add Urine Microscopic? NO; Charge for UA Resulting for Rev
[2022-12-01] MEDS: dexamethasone 10 mg/mL INJ IVP (10:39)
[2022-12-01] MEDS: orphenadrine 30 mg/mL Inj 2 mL 60 MG IVP (10:39)
[2022-12-01 10:54] LABS: Bilirubin Urine Neg (Negative); Blood Urine Neg (Negative); Glucose Urine UA Norm (Normal); Ketones Urine Negative (Negative); Leukocyte Esterase Urine Negative (Negative); Nitrate Urine Negative (Negative); Protein Urine Neg (Negative); Sulfosalicylic Acid Urine Negative (Negative); Urine Appearance Clear (CLEAR); Urine Color Yellow (Yellow); Urobilinogen Urine Norm (Negative); pH Urine 8 (5-7)
--- NOTE | 2022-12-01 11:10 | ECG_ITS ---
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 Measurements Intervals [place] Rate: 84 P: 0 [place]: 0 QRS: 9 QRSD: 102 T: 37 QT: 385 QTc: 456 Interpretive Statements Sinus rhythm with premature atrial contractions SEPTAL MYOCARDIAL INFARCTION , OF INDETERMINATE AGE [40+ ms Q WAVE IN V1/V2] Compared to ECG 12/01/2022 09:12:43 Myocardial infarct finding still present Electronically Signed On 12-02-2022 10:26:38 CDT by Marshall Mercedes M.D. [id number]
[2022-12-01 11:31] LABS: Troponin 5 2HR 10.95 ng/L (0-15)
[2022-12-01 12:12] LABS: Troponin 5 2HR Delta -1.05 ABS# (0-10)
--- NOTE | 2022-12-03 08:13 | DCPLANNER ---
Addendum entered by Armida Trejo 12/24/22 11:22: Patient had a follow up appointment at ortho - patient did attend appointment. Addendum entered by Armida Trejo 12/12/22 15:23: Patient has a follow up appointment scheduled for Sunday, December 18, 2022 at 11:00 with Chavez Stringer at ortho. Original Note: legal practice manager had message to schedule a follow up appointment for patient with ortho. legal practice manager sent patients information to the front office staff at ortho. Patients information will be printed and reviewed. Clinic will call patient with appointment information.
== END 2022-12-01 11:49 | disposition home or self-care (01) ==
PROVIDERS: Emergency Provider Family Medicine; PCP Family Medicine
DX: M54.2 Cervicalgia (principal); R07.89 Other chest pain; Z79.82 Long term (current) use of aspirin; Z87.891 Personal history of nicotine dependence; I25.10 Atherosclerotic heart disease of native coronary artery without angina pectoris; I25.2 Old myocardial infarction; Z86.73 Personal history of transient ischemic attack (TIA), and cerebral infarction without residual deficits
CPT/HCPCS: 36415; 70450; 72125; 80053; 81003; 84484; 85025; 93005; 96374; 96375; 99285; J1100; J1885; J2360

== ENCOUNTER → 2022-12-18 10:31 | Outpatient (BNVA) | payer OTHER, SELFPAY | PROVIDERS: PCP Family Medicine; Referring Provider Nurse Practitioner Family; Visit Provider Physician Assistant | DX: M54.2 Cervicalgia (principal) | CPT/HCPCS: 72050; 99203 ==

== ENCOUNTER → 2022-12-20 14:44 | Outpatient (BNVA) | payer OTHER, SELFPAY | PROVIDERS: PCP Family Medicine; Visit Provider Thoracic Surgery (Cardiothoracic Vascular Surgery) | DX: I65.29 Occlusion and stenosis of unspecified carotid artery (principal); Z87.891 Personal history of nicotine dependence | CPT/HCPCS: 99213 ==

== ENCOUNTER 2022-12-21 10:16 | Outpatient (CLI) | payer OTHER, SELFPAY ==
--- NOTE | 2022-12-21 11:00 | MR_ITS ---
WS: [id number] MRI CERVICAL SPINE NONCONTRAST HISTORY: severe neck pain, RIGHT arm radiculopathy. COMPARISON: 10/30/2018 Technique: Multiplanar, multisequence noncontrast imaging of the cervical spine. Increase in the cervical lordosis with LEFT curvature. Focal kyphosis has moderately progressed at th e C3-4 level. Severe disc space narrowing at C3-4, C4-5, C5-6, C6-7 and C7-T1. No acute marrow edema. Short segment increased T2 signal within the cervical cord at the C3-4 level. New since 2019. Craniocervical junction, C1 and C2 relationship, odontoid process and soft tissues are normal. There is a significant acute inflammatory process involving the RIGHT paraspinal soft tissues beginni ng at the C3 level and extending inferiorly to approximately the C5-6 disc level. Soft tissue inflamm ation surrounds the facet joints extends into the paraspinal soft tissues and partially encases the v ertebral artery. There is fluid in the facet joints and the articular facets most significantly at th e C3-4 level. There is severe hypertrophic bone formation of the facets. Marrow edema in the facets a nd mild widening. Malalignment of the facet probably secondary to the scoliosis and probable instabil ity. C2-C3: Mild disc bulging and osteophytic ridging. No high-grade stenosis. C3-C4: Annular disc bulging with osteophytic ridging. Marked facet joint arthritis encroaching also u swati the thecal sac. Severe central and bilateral foraminal stenosis. C4-C5: Continued marked facet joint arthritis noted bilaterally encroaching towards the thecal sac wi th deformity. Diffuse annular disc bulging and central disc protrusion. Severe central and bilateral foraminal stenosis. C5-C6: Diffuse annular disc bulging with osteophytic ridging. Encroaching upon the ventral thecal sac . Marked facet joint arthritis. Mild central with severe bilateral foraminal stenosis. C6-C7: Annular disc bulging and osteophytic ridging. Hypertrophic osteophytes RIGHT foramen. Moderate bilateral foraminal stenosis. C7-T1: Osteophytic ridging and annular disc bulging. Moderate bilateral foraminal stenosis. MR/MR cervical spin wo con* [id number] IMPRESSION: 1. Moderate progression of the focal kyphosis centered at the C3-4 level and d egenerative curvature of the cervical spine since 10/30/2018. 2. New focal cervical myelomalacia at C3-4. 3. Severe acute edema within the soft tissues, facets and facet joint fluid al cruzito the RIGHT cervical spine beginning at the C3 level through C5-6. May repres ent an acute injury or secondary findings of instability. Marked synovitis shou ld also be considered. This is the area where there is marked facet joint arthr itis. 4. Severe central and bilateral foraminal stenosis at C3-4, C4-5. 5. Mild central with severe bilateral foraminal stenosis at C5-6. 6. Moderate bilateral foraminal stenosis at C6-7 and C7-T1.
== END 2022-12-21 10:17 | disposition home or self-care (01) ==
LOC: RAD 10:19
PROVIDERS: PCP Family Medicine; Visit Provider Physician Assistant
DX: M40.202 Unspecified kyphosis, cervical region (principal); G95.89 Other specified diseases of spinal cord; M47.892 Other spondylosis, cervical region; M48.02 Spinal stenosis, cervical region
CPT/HCPCS: 72141; 99203

== ENCOUNTER 2022-12-21 12:45 | Emergency (ER) | payer OTHER, SELFPAY ==
[2022-12-21 12:48] VITALS: BP 156/92; PULSE 74; RESP 16; TEMP 36.8; O2SAT 97; BMI 22.9
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
== END 2022-12-21 14:28 | disposition home or self-care (01) ==
PROVIDERS: Emergency Provider Physician Assistant; PCP Family Medicine
DX: S01.112A Laceration without foreign body of left eyelid and periocular area, initial encounter (principal); Z79.82 Long term (current) use of aspirin; Z87.891 Personal history of nicotine dependence; Z95.5 Presence of coronary angioplasty implant and graft; I25.10 Atherosclerotic heart disease of native coronary artery without angina pectoris; I25.2 Old myocardial infarction; Z86.73 Personal history of transient ischemic attack (TIA), and cerebral infarction without residual deficits; V43.52XA Car driver injured in collision with other type car in traffic accident, initial encounter
CPT/HCPCS: 99283

== ENCOUNTER → 2023-01-22 13:59 | Outpatient (BNVA) | payer OTHER, SELFPAY | PROVIDERS: PCP Family Medicine; Referring Provider Family Medicine; Visit Provider Nurse Practitioner Family | DX: R20.0 Anesthesia of skin (principal); R20.2 Paresthesia of skin; G56.03 Carpal tunnel syndrome, bilateral upper limbs | CPT/HCPCS: 99213 ==

== ENCOUNTER → 2023-02-01 09:56 | Outpatient (BNVA) | payer OTHER, SELFPAY | PROVIDERS: PCP Family Medicine; Visit Provider Podiatrist Foot & Ankle Surgery | DX: M20.12 Hallux valgus (acquired), left foot (principal); M20.42 Other hammer toe(s) (acquired), left foot | CPT/HCPCS: 73630; 99204 ==

== ENCOUNTER → 2023-05-20 14:22 | Outpatient (BNVA) | payer OTHER, SELFPAY | PROVIDERS: PCP Family Medicine; Visit Provider Podiatrist Foot & Ankle Surgery | DX: M20.12 Hallux valgus (acquired), left foot (principal); M20.42 Other hammer toe(s) (acquired), left foot | CPT/HCPCS: 99214 ==

== ENCOUNTER 2023-05-29 06:00 | Outpatient (RCR) | payer OTHER, SELFPAY | END 2023-06-27 23:59 | disposition home or self-care (01) | LOC: TPT 06:00 | PROVIDERS: Visit Provider Family Medicine | DX: M51.36 Other intervertebral disc degeneration, lumbar region (principal) | CPT/HCPCS: 97162 ==

== ENCOUNTER 2023-06-06 12:27 | Outpatient (CLI) | payer OTHER, SELFPAY ==
--- NOTE | 2023-06-06 12:33 | MR_ITS ---
WS: [id number] MRI LUMBAR SPINE NONCONTRAST TECHNIQUE: Sagittal T1, T2 and STIR imaging. Axial T1 and T2 imaging. CLINICAL INFORMATION: LOW BACK PAIN COMPARISON: MRI 2018 FINDINGS: Mild lumbar curve. Advanced spondylitic changes lumbar spine. Slight retrolisthesis L2 on L3 and L3 o n L4. Disc space narrowing throughout the lumbar spine. No acute compression fractures. Disc narrowin g at L2-3 appears progressed compared to 2018. Endplate degenerative changes with edema L3-L4 and L4- L5. L1-L2: Mild annular bulging. Mild facet arthropathy. Spinal canal and foramen are patent. L2-L3: Slight retrolisthesis. Disc osteophyte ridging with narrowing of the subarticular recess bilat erally. This is similar to previous. Mild facet arthropathy. Foramen are patent. L3-L4: Mild annular bulging with osteophytic ridging. Mild central canal stenosis. Slight impingement LEFT greater than RIGHT subarticular recess. Mild facet arthropathy. Mild RIGHT greater than LEFT fo raminal narrowing. Central canal stenosis appears slightly progressed. L4-L5: Mild disc bulge with osteophytic ridging. Narrowing of the subarticular recess bilaterally juliana ears similar to previous. Moderate facet arthropathy. Mild bilateral foraminal narrowing. L5-S1: Mild disc bulge with osteophytic ridging. Slight contact of the traversing S1 nerve roots bila terally. Moderate facet arthropathy. Mild RIGHT foraminal narrowing. Visualized pelvic bony structures: Normal. Paravertebral soft tissues: Normal. Adrenal glands are normal. LEFT anterior renal cyst measuring 3.7 cm partially visualized. Moderate c entral canal stenosis cervical spine on the aqueduct and reservoir keeper imaging at C3-C4 and C4-C5 similar to 12/21/2022 IMPRESSION: 1. Advancement spondylitic changes lumbar spine. No acute compression fractures. Degenerative endpla te type changes L3-L4 and L4-L5. Disc space narrowing at L2-3 has progressed. 2. Mild central canal stenosis L2-3 appears stable compared to previous 3. Mild central canal stenosis L3-L4 appears progressed compared to previous. 4. Disc bulge with narrowing of the subarticular recess bilaterally at L4-5 appears stable. 5. Mild to moderate bony foraminal narrowing worse at bilateral L4-5 LEFT greater than RIGHT and RIG HT L5-S1. This is slightly progressed compared to previous.
== END 2023-06-06 12:28 | disposition home or self-care (01) ==
LOC: RAD 12:27
PROVIDERS: PCP Family Medicine; Visit Provider Family Medicine
DX: M47.817 Spondylosis without myelopathy or radiculopathy, lumbosacral region (principal); M48.07 Spinal stenosis, lumbosacral region; M51.36 Other intervertebral disc degeneration, lumbar region
CPT/HCPCS: 72148

== ENCOUNTER → 2023-07-05 11:15 | Outpatient (BNVA) | payer OTHER, SELFPAY | PROVIDERS: PCP Family Medicine; Visit Provider Internal Medicine Cardiovascular Disease | DX: I65.29 Occlusion and stenosis of unspecified carotid artery (principal); I25.10 Atherosclerotic heart disease of native coronary artery without angina pectoris; R09.89 Other specified symptoms and signs involving the circulatory and respiratory systems; I48.0 Paroxysmal atrial fibrillation; E78.00 Pure hypercholesterolemia, unspecified; R07.9 Chest pain, unspecified; Z87.891 Personal history of nicotine dependence | CPT/HCPCS: 99214 ==

== ENCOUNTER 2023-07-18 07:47 | Outpatient (CLI) | payer OTHER, SELFPAY ==
--- NOTE | 2023-07-18 | ECG_ITS ---
[facility] Test Date: 2023-07-18 Pat Name: Matthew Mederos Department: Room: Gender: Male Medical Language Specialist: Boy Escalante : 1945 Requested By: Marshall Mercedes Order Number: [id number] Ayden MD: Yobani Penaloza M.D. Interpretive Statements NAME OF STUDY: LEXISCAN SESTAMIBI STRESS TEST INDICATION: Chest Pain, PROCEDURE: At the baseline, the EKG revealed normal sinus rhythm with frequent supraventricular ectopics. Poor R wave progression. Some nonspecific T wave changes in the inferior leads. The baseline heart was 87 bpm with a blood pressue of 155/110 mm of Hg Lexiscan was infused over a period of 20 seconds. A total of 0.4 milligrams of Lexiscan was infused. The stress phase was continued for a total of 5 minutes. Heart rate at the end of the stress phase was 72 bpm with a blood pressure 144/80 mm of Hg. The EKG at the peak infusion revealed almost complete disappearance of the supraventricular ectopics with some nonspecific T wave changes. Sestamibi was injected 20 seconds after the Lexiscan infusion. Heart rate at the end of the recovery phase was 68 bpm with a blood pressure of 146/85 mm of Hg. CONCLUSION: 1. No significant EKG changes with the LexiScan infusion 2. No LexiScan induced chest pain or cardiac arrhythmia 3. Normal blood pressure and heart rate response 4. Sestamibi/sestamibi perfusion scan pending; see separate report. Electronically Signed On 07-29-2023 17:10:08 MISSILE TECHNICIAN by Yobani Penaloza M.D. [id number]
[2023-07-18 08:00] VITALS: BMI 22.9
--- NOTE | 2023-07-18 08:01 | NMCV_ITS ---
NM bin perf SPECT r/s* [id number] Matthew Mederos Age: 78 Gender: M : 1945 Exam Date: 07/18/2023 08:35 Ordering Phys: Marshall Mercedes MD ([email or web address]) Technologist: MARCELLUS Moreno Exam Location: [facility] Indications: CP STRESS TEST Please see separate stress test report in [facility] for full findings IMAGE PROTOCOL Rest/Stress 1 Lexiscan Day Radiopharmaceutical Dose (mCi) Administration Site Administered by Rest: Tc-99m 10.7 IV MARCELLUS Moreno Sestamibi Stress:Tc-99m 32.6 IV MARCELLUS Moreno Sestamibi Rest: 18-Jul-2023 60 Discovery 630 Stress: 18-Jul-2023 30 Discovery 630 0.4mg Lexiscan. Images obtained in supine and prone position. SPECT RESULTS Technical Quality: Good Raw Data Analysis: Normal Image Corrections: No attenuation or motion correction applied Summed Stress Score: 7 Summed Rest Score: 3 Summed Difference Score: 4 PERFUSION FINDINGS Moderate area of minimal to moderately decreased tracer uptake was noted involving the mid and apical inferior, mid inferoseptal and LV apex. Some reversibility was noted in these regions addressed. FUNCTIONAL RESULTS (calculated via Gated SPECT) Stress Image LV EF (%): 60 Stress EDV (mL):100 TID: 1 Stress ESV (mL):40 FUNCTIONAL FINDINGS: LV wall motion analysis revealed mild diffuse hypokinesia of the inferior wall region IMPRESSIONS 1. Myocardial perfusion imaging revealing moderate area of minimal to moderately decreased tracer uptake involving the inferior, inferoseptal and LV apex with some reversibility suggesting myocardial scarring with ischemia in the distribution of the right coronary artery. 2. Normal LV ejection fraction 60% 3. LV wall motion analysis revealed mild diffuse hypokinesia of the inferior wall region. 4. Normal LV volume. No similar previous studies are available for comparison Dr Yobani Peanloza MD FACC (Electronically Signed) Final Date: 18 July 2023 14:02 S
[2023-07-18] MEDS: regadenoson 0.4 Mg/5 ml Syringe IVP (09:15)
[2023-07-18 09:33] VITALS: BP 146/85; PULSE 71
== END 2023-07-18 07:48 | disposition home or self-care (01) ==
LOC: CDL 07:48
PROVIDERS: PCP Family Medicine; Visit Provider Internal Medicine Cardiovascular Disease
DX: R07.9 Chest pain, unspecified (principal); R93.1 Abnormal findings on diagnostic imaging of heart and coronary circulation
CPT/HCPCS: 36415; 78452; 93017; 96374; A9500; J2785

== ENCOUNTER → 2023-09-30 10:59 | Outpatient (BNVA) | payer OTHER, SELFPAY | PROVIDERS: PCP Family Medicine; Visit Provider Internal Medicine Cardiovascular Disease | DX: E78.00 Pure hypercholesterolemia, unspecified (principal); I25.10 Atherosclerotic heart disease of native coronary artery without angina pectoris; I48.0 Paroxysmal atrial fibrillation; I65.29 Occlusion and stenosis of unspecified carotid artery; R07.9 Chest pain, unspecified; Z95.5 Presence of coronary angioplasty implant and graft; R94.39 Abnormal result of other cardiovascular function study; Z87.891 Personal history of nicotine dependence | CPT/HCPCS: 99214 ==

== ENCOUNTER 2023-10-07 05:48 | Outpatient (CLI) | payer OTHER, SELFPAY ==
[2023-10-07] VITALS (17 sets, daily range): BP systolic 92–160; BP diastolic 58–96; PULSE 55–79; RESP 14–18; TEMP 36.5; O2SAT 94–97
--- NOTE | 2023-10-07 06:00 | XACV_ITS ---
Exam Room: 2 Ht: 178 cm Wt: 73 kg BSA: 1.91 m2 Gender: Male : 1945 Any Known Allergies: No known allergies Exam Priority: Routine Procedure(s): Procedure Description: Diagnostic procedure Procedure Description: Coronary Angiography Daren MORALES; Diagnostic Cath Status: Elective Diagnostic Findings * Patient has very atypical chest pain with previous stents in the LAD. Left-sided sharp pain with feelings of fatigue and exhaustion. Stress testing showed a rather mild abnormality in the distribution of the right coronary artery. * Angiography reveals right coronary artery dominance. The left main coronary artery is normal and bifurcates into the LAD and circumflex. The LAD appears to have previously placed stents in the mid vessel. The stents are patent with a very mild amount of in-stent restenosis. In the proximal vessel there is heavy calcification with mild diffuse disease. There is a rather large diagonal branch which is also calcified and relatively free of disease. There is a 40 to 50% narrowing in the proximal portion. The circumflex is a small vessel but contains mild diffuse disease and no significant stenoses. The right coronary artery is a very large vessel and is extremely heavily calcified throughout. In the proximal mid and distal portion there is heavy calcification. There is also some tortuosity of the vessel in the proximal portion. In the proximal artery there are diffuse calcified narrowing is up to 20 to 30%. In the mid vessel there heavily calcified narrowing is up to 80%.. PCI Status: Elective PCI LVEF Assessed: No Interventional Findings * Due to the heavy calcification, I was not able to advance a standard cougar wire very far past the tip of the guide. The heavy calcification prevented this. I then switched to a run-through wire. I was able to get the run-through wire just past the acute margin but no farther. This is an extraordinarily heavily calcified vessel. Had I been able to get a wire down the vessel neither a balloon nor a stent would have passed through this heavily calcified artery. The only potential remedy is atherectomy. We will need to bring him back to make an attempt at this when the proper personnel can be arranged. Decision for PCI with Surgical Consult: No PCI for Multi-vessel Disease: No Conclusions 1. Atypical symptoms with severely calcified dominant right coronary artery with lesions in the midportion and mildly abnormal stress test. Previously placed LAD stents patent. Recommendations * I will speak with my colleagues to see if this is something we can attempt here or whether he should be referred. Interventional RX Recommendation: PCI w/o planned CABG Diagnostic RX Recommendation: PCI w/o planned CABG Anticoagulation: Heparin Pressures Phase:Rest AO : 103 / 79 ( 90 ) @ 7:13:00 AM 113 / 83 ( 98 ) @ 7:15:00 AM 118 / 84 ( 101 ) @ 7:27:00 AM Clinical Evaluation EBL: 5mL-10mL Procedural Details Pre-Procedure Time Out. Identified patient by full name and date of as verbalized by the patient/guarantor. Does the consent match the physician's order: Yes. Accurate & Complete Informed Consent: Yes. Inpatient/Outpatient History & Physical on Chart: Yes. If H&P is completed, is and addenduem needed: No; If yes, is the addendum complete: N/A. Visualize and Verify Site with Patient/Guarantor: N/A. Relevant Radiology Images available: Yes. Pre-op teaching completed and patient verbalized understanding. The risks, benefits, and alternatives of sedation and/or procedure were discussed by physician. The patient agrees to continue. Procedure started. Physician arrived. [facility] Clinical Fraility Score: 3: Managing Well. Production Machine Operator Indications: Worsening Angina. Chest Pain Symptom Assessment: Atypical Angina. Current diagnosis: Chest Pain. PERRLA. Strong, equal hand supervisor inspection department bilaterally. Lungs clear x 5 lobes. IV Site on Arrival: 20 gauge in the left forearm. IV Fluids: 0.9% NaCl at KVO. 0 mL infused prior to curb and gutter laborer. Pre Procedural Pulses: bilateral dorsalis pedis was Doppled. Pre Procedural Pulses: bilateral posterior tibial was 3+. Pre Procedural Pulses: bilateral radial was 3+. Oxygen started at 2liters/min via nasal canula. right groin was prepped with chloroprep then draped in the usual sterile fashion. right radial was prepped with chloroprep then draped in the usual sterile fashion. Baseline sample Acquired. HR: 64 BPM. Physician scrubbed in. Immediate Pre-Procedure Time Out. Correct Patient: Yes; Correct Procedure: Yes; Correct Site: Yes; Correct Patient Position: Yes; Correct Supplies: Yes; Dried Flammable Prep: Yes; Blood Products Available: N/A;. Lidocaine 1% infiltrated to the right radial. Arterial access obtained. A 5 [place] TIG catheter in over wire. Multiple views taken of left coronary artery. Catheter redirected to the RCA. Multiple views taken of right coronary artery. Catheter removed over the exchange wire. 6 [place] JR 4 guide catheter was inserted over the wire. [place] guidewire was advanced through the guide catheter to lesion in the mid Circ. Wire out. Runthrough guidewire was advanced through the guide catheter to lesion in the mid RCA. Wire out. Guide catheter out. A TR Band was successful obtaining hemostatsis at the Right Radial artery insertion site. Post Procedure: Pulses reassessed and unchanged. PERRLA. Strong, equal hand supervisor inspection department bilaterally. No VTE prophylaxis required. Medication's Wasted: Other = Fentanyl 75mcg Versed 1 mg. Medication's Wasted: Heparin = 1000 units. Medication's Wasted: Nitro = 49.8 mg. Total IV fluids: 50 mL. Post-op diagnosis: CAD. Complications: None. Estimated blood loss: 5mL-10mL. Responsiveness - Normal response to verbal stimuli; alert and oriented, PERRLA. Airway - Unaffected, no intervention required; spontaneous ventilation. Circulation: W/N/L, pulses unchanged. Nausea/Vomiting: No. Vital chart was stopped. Procedure completed. Patient transferred by wheelchair to CPRU. Access Site Site: Right Radial artery Sheath Size: 6 Fr Hemostasis Method: TR Band Hemostasis Success: Successful Procedure Medications Start: 7:02 AM Stop: 7:02 AM Medication: Versed 1 mg and Fentanyl 25 mcg Amount: 1 Route: I.V. Start: 7:10 AM Stop: 7:10 AM Medication: Nitrogylcerin Amount: 200 mcg Route: I.A. Start: 7:13 AM Stop: 7:13 AM Medication: Heparin Amount: 5000 units Route: I.V. I, the attending physician, have reviewed and verified all procedure medications. Yes, all medications given per verbal order History/Risk Factors Hypertension: Yes Dyslipidemia: Yes Peripheral Arterial Disease (PAD): No Myocardial Infarction (NM): Yes Obesity: No Renal Disease: No Tobacco Use: Former Prior Interventions PCI: Yes CABG: No Valve Surgery: No Date of PCI: 03/25/2017 Report Signatures Finalized by Dr. Marshall Mercedes MD on 10/07/2023 08:03 AM
[2023-10-07] MEDS: diphenhydrAMINE 50 mg Capsule PO (06:25)
[2023-10-07] MEDS: aspirin 325 mg Tablet PO (06:25)
[2023-10-07 06:33] LABS: Basophils # 0.1 10^3/uL (0.0-0.1); Basophils % 1.5 %; Eosinophils # 0.2 10^3/uL (0.0-0.8); Eosinophils % 3.9 %; Hematocrit 48.1 % (37-53); Lymphocytes # 2.4 10^3/uL (0.8-4.8); Lymphocytes % 39.2 %; Mean Corpuscular HGB Conc 33.1 g/dL (30-55); Mean Corpuscular Hemoglobin 30.2 pg (27-33); Mean Corpuscular Volume 91.3 fl (82-101); Mean Platelet Volume 9.1 fL (7.4-10.4); Monocytes # 0.6 10^3/uL (0.2-0.9); Monocytes % 10.1 %; Neutrophils # 2.77 10^3/uL (1.8-7.7); Neutrophils % 45.1 %; Nucleated Red Blood Cells % 0 %; Platelet Count 244 10^3/cmm (157-399); Red Blood Count 5.27 10^6/uL (3.85-5.65); Red Cell Distribution Width 13.2 % (12.1-15.1); White Blood Count 6.13 10^3/uL (3.29-11.43)
[2023-10-07 06:46] LABS: Anion Gap 13.1 (5-19); Blood Urea Nitrogen 21 mg/dL (8-23); Calcium 9.7 mg/dL (8.5-10.5); Carbon Dioxide 25 mmol/L (22-29); Chloride 107 mmol/L (98-107); Glucose 91 mg/dL (65-115); Osmolality Calculated 295 mOsm/kg (285-295); Potassium 4.1 mmol/L (3.5-5.1); Sodium 141 mmol/L (136-145)
--- NOTE | 2023-10-07 06:55 | W.PM.OPSUD ---
Surgery/Procedure H&P Update DATE OF PROCEDURE: October 07, 2023 DATE H&P PERFORMED: 09/30/19 H&P UPDATE INFORMATION: I have reviewed H&P completed within last 30 days, I have examined patient prior to procedure, No changes to prior documentation and H&P is in [facility] EMR on date indicated PREOP DIAGNOSIS: chest pain PRIMARY INDICATION FOR PROCEDURE: intractable CP, abnormal stress test PLANNED PROCEDURE: Operation Date: 10/07/23 07:00 Proposed Procedures p [facility] 27722,I25.0(Left) - Marshall Mercedes MD
--- NOTE | 2023-10-07 07:52 | SUR.PHASEII ---
Received the patient back from the cardiac catheterization technologist via wheelchair s/p Diagnostic [facility] at 0745. Patient ambulated to the cot without difficulty. A & 0 x 3. monitor and storage bin tender placed and vital signs obtained. TR band intact to the right wrist. No bleeding or hematoma noted. Palpable radial pulse. No other assessment changes noted from pre cath assessment. Spouse at bedside. No concerns voiced at this time. Plan for DC home later this AM.
--- NOTE | 2023-10-07 08:45 | SUR.PHASEII ---
Letting the air out of the TR band per protocol. No other assessment changes at this time. Spouse remains at bedside.
--- NOTE | 2023-10-07 09:56 | SUR.PHASEII ---
Dr. Mercedes at bedside. Discharge plan discussed with the patient and his spouse.
--- NOTE | 2023-10-07 10:03 | PM.DCS ---
Discharge Providers Date of Admission: October 07, 2023 Date of Discharge: October 07, 2023 Attending Provider at Admission: Daren Attending Provider at Discharge: Marshall Mercedes MD Primary Care Provider: Elda Corral MD Diagnoses at Discharge Discharge Diagnosis (1) History of coronary angioplasty with insertion of stent: Status: Acute Permanent problem details: 2 and 2016 2 (2) Hypercholesterolemia: Status: Acute (3) Coronary artery disease: Status: Acute (4) Paroxysmal atrial fibrillation: Status: Acute (5) Carotid artery stenosis without cerebral infarction: Status: Acute (6) Chest pain: Status: Acute (7) Abnormal stress test: Status: Acute (8) Inflammatory arthritis: Status: Acute Reason for Visit Reason for Visit: I25.0 Brief History: Presented to the clinic twice with atypical chest pain and other symptoms. Stress testing revealed minor abnormalities in the distribution of the right coronary artery. He has stents previously placed in the LAD. No ischemia was noted in this distribution. He was recommended for angiography. Hospital Course Hospital Course Angiography reveals heavily calcified arteries throughout. The right coronary artery is the dominant vessel and is large but is heavily calcified from the ostium past the acute margin. In the mid vessel there are 2 or 3 eccentric 80 to 85% stenoses. I made an attempt to pass a wire. I could not get a cougar wire past the proximal vessel. I was able to get a run-through wire just past the acute margin but no further. Even if I had passed the wire a balloon and stent certainly would not go. I therefore discontinued the procedure and will consider bringing him back for an atherectomy. The procedure was done from the right radial artery. There were no complications. I will add Imdur to his medication regimen. The other difficulty is that I am not certain that intervening upon this artery will take care of his symptoms. He has dizziness and lightheadedness and very unusual sharp left-sided chest pain. I have spoken to him and his about this telling them that I was not certain that intervening on the artery would make him feel better. Physical Exam Narrative: GENERAL: In general he looks and feels well HEENT: Exam within normal limits. NECK: Supple without jugular vein distention. The carotid upstroke is normal without bruits. BACK: Exam normal. LUNGS: Clear. HEART: Regular rate and rhythm. ABDOMEN: Benign without organomegaly or tenderness. EXTREMITIES: No edema. At the time of discharge the right radial artery entry site is flat, dry without bleeding or hematoma. There is a 2+ pulse. NEUROLOGIC: Exam normal. SKIN: Unremarkable. Discharge Data Studies Completed and Pending Completed Studies During Hospitalization Category Date Time Status [employer] request for service Routine Exams 10/07/23 06:00 Completed Laboratory Results WBC 6.13 10^3/uL (3.29-11.43) 10/07/23 06:22 RBC 5.27 10^6/uL (3.85-5.65) 10/07/23 06:22 Hgb 15.90 g/dL (11.27-16.99) 10/07/23 06:22 Hct 48.1 % (37-53) 10/07/23 06:22 MCV 91.3 fl (82-101) 10/07/23 06:22 MCH 30.2 pg (27-33) 10/07/23 06:22 MCHC 33.1 g/dL (30-55) 10/07/23 06:22 RDW 13.2 % (12.1-15.1) 10/07/23 06:22 Plt Count 244 10^3/cmm (157-399) 10/07/23 06:22 MPV 9.1 fL (7.4-10.4) 10/07/23 06:22 Neut % (Auto) 45.1 % 10/07/23 06:22 Lymph % (Auto) 39.2 % 10/07/23 06:22 Nash % (Auto) 10.1 % 10/07/23 06:22 Eos % (Auto) 3.9 % 10/07/23 06:22 Baso % (Auto) 1.5 % 10/07/23 06:22 Neut # (Auto) 2.77 10^3/uL (1.8-7.7) 10/07/23 06:22 Lymph # (Auto) 2.4 10^3/uL (0.8-4.8) 10/07/23 06:22 Nash # (Auto) 0.6 10^3/uL (0.2-0.9) 10/07/23 06:22 Eos # (Auto) 0.2 10^3/uL (0.0-0.8) 10/07/23 06:22 Baso # (Auto) 0.1 10^3/uL (0.0-0.1) 10/07/23 06:22 Nucleated RBC % (auto) 0 % 10/07/23 06:22 Nucleated RBCs # 0.0 /100WBC 10/07/23 06:22 Sodium 141 mmol/L (136-145) 10/07/23 06:22 Potassium 4.1 mmol/L (3.5-5.1) 10/07/23 06:22 Chloride 107 mmol/L (98-107) 10/07/23 06:22 Carbon Dioxide 25 mmol/L (22-29) 10/07/23 06:22 Anion Gap 13.1 (5-19) 10/07/23 06:22 BUN 21 mg/dL (8-23) 10/07/23 06:22 Creatinine 0.7 mg/dL (0.7-1.2) 10/07/23 06:22 GFR Calculation Not Reportable 10/07/23 06:22 Glucose 91 mg/dL (65-115) 10/07/23 06:22 Calculated Osmolality 295 mOsm/kg (285-295) 10/07/23 06:22 Calcium 9.7 mg/dL (8.5-10.5) 10/07/23 06:22 Procedures Performed Coronary angiography Vitals Last Vital Signs Temp 97.7 F 10/07/23 06:43 Pulse 62 10/07/23 09:45 Resp 18 10/07/23 09:45 BP 107/65 10/07/23 09:45 Pulse Ox 96 10/07/23 09:45 O2 Del Method Room Air 10/07/23 09:45 O2 Flow Rate 99 10/07/23 08:30 Discharge Plan Discharge Patient Disposition: Home Prescriptions: New isosorbide mononitrate 30 mg tablet extended release 24 hr 30 mg PO DAILY Qty: 90 0RF Continued donepezil 5 mg tablet 5 mg PO DAILY lidocaine 5 % ointment 1 applic topical DAILY PRN (Reason: Pain) tamsulosin 0.4 mg capsule 0.4 mg PO BID Qty: 180 3RF metoprolol tartrate 50 mg tablet 25 mg PO BID@06,20 finasteride 5 mg tablet 5 mg PO DAILY@06 simvastatin 80 mg tablet 40 mg PO BEDTIME@1999 sertraline 100 mg tablet 100 mg PO DAILY multivitamin [Multiple Vitamins] Tablet 1 tab PO DAILY clopidogrel [Plavix] 75 mg tablet 75 mg PO DAILY prednisone 20 mg tablet 20 mg PO DAILY Qty: 15 0RF Rx Instructions: Take 60 mg daily for days 1, 2, 3 Take 40 mg daily for days 4, 5 Take 20 mg daily for days 6, 7 tramadol 50 mg tablet 50 mg PO Q6H PRN (Reason: pain) Qty: 40 0RF Rx Instructions: Take 1 tablet every 4 to 6 hours as needed for pain. diclofenac sodium 75 mg tablet,delayed release (DR/EC) 75 mg PO Q12H PRN (Reason: pain) Qty: 20 0RF Discharge Orders: Discharge Order (Routine); Ordered 10/07/23 Ordered By: Marshall Mercedes Referrals: Kerry Pratt FNP [Nurse Practitioner] - 10/15/23 8:30 am Diet: Cardiac Activity: Limit activity as instructed Patient Instructions: After Radial Heart Catheterization (GEN) Activity Restrictions/Additional Instructions: No lifting over 5 pounds for 2 days with the right arm. Discharge Attestations Time Spent in Discharge Care*: greater than 30 min Quality Metrics Clinical Quality Measures [ No reported AMI, CVA or VTE this stay] Coding Level of Care Code 61356 Total time (in minutes) for Discharge: 40 Diagnoses History of coronary angioplasty with insertion of stent Z95.5 Hypercholesterolemia E78.00 Coronary artery disease I25.10 Paroxysmal atrial fibrillation I48.0 Carotid artery stenosis without cerebral infarction I65.29 Chest pain R07.9 Abnormal stress test R94.39 Inflammatory arthritis M19.90
--- NOTE | 2023-10-07 10:30 | SUR.PHASEII ---
TR band off per protocol. Site cleansed with warm water and patted dry. A large band aid was applied to the site and loosely covered with coban. No bleeding or hematoma noted. Site soft with palpable radial pulse. No other assessment changes noted at this time. Plan for DC home 1130.
--- NOTE | 2023-10-07 11:30 | SUR.PHASEII ---
DC instructions given verbally and in a handout to the patient and his spouse. They verbalized their understanding. Patient dc'd home via wheelchair at 1130.
== END 2023-10-07 05:49 | disposition home or self-care (01) ==
PROVIDERS: PCP Family Medicine; Visit Provider Internal Medicine Cardiovascular Disease
DX: I25.10 Atherosclerotic heart disease of native coronary artery without angina pectoris (principal); I25.82 Chronic total occlusion of coronary artery; Z95.5 Presence of coronary angioplasty implant and graft; E78.00 Pure hypercholesterolemia, unspecified; I48.0 Paroxysmal atrial fibrillation; I65.29 Occlusion and stenosis of unspecified carotid artery; M19.90 Unspecified osteoarthritis, unspecified site; I10 Essential (primary) hypertension; E78.5 Hyperlipidemia, unspecified; Z87.891 Personal history of nicotine dependence
CPT/HCPCS: 36415; 80048; 85025; 93454; 96361; 96365; 99152; 99153; C1769; C1887; C1894; J1644; J2250; J3010; J3490; J7030; Q0163; Q9967

== ENCOUNTER → 2023-10-10 14:42 | Outpatient (BNVA) | payer OTHER, SELFPAY | PROVIDERS: PCP Family Medicine; Visit Provider Nurse Practitioner Family | DX: Z09 Encounter for follow-up examination after completed treatment for conditions other than malignant neoplasm (principal); I25.10 Atherosclerotic heart disease of native coronary artery without angina pectoris | CPT/HCPCS: 36415; 80048; 99214 ==

== ENCOUNTER → 2023-10-17 10:01 | Outpatient (BNVA) | payer OTHER, SELFPAY | PROVIDERS: PCP Family Medicine; Visit Provider Podiatrist Foot & Ankle Surgery | DX: Z01.818 Encounter for other preprocedural examination (principal); M20.12 Hallux valgus (acquired), left foot; M20.42 Other hammer toe(s) (acquired), left foot; M79.672 Pain in left foot | CPT/HCPCS: 99214 ==

== ENCOUNTER 2023-10-30 05:51 | Day surgery (SDC) | payer OTHER, SELFPAY ==
[2023-10-30] VITALS (9 sets, daily range): BP systolic 107–120; BP diastolic 65–77; PULSE 61–74; RESP 18; TEMP 36.2–36.5; O2SAT 93–98; BMI 22.6
--- NOTE | 2023-10-30 | XR_ITS ---
WS: [id number] C-ARM RADIOGRAPHS LEFT FOOT; 2 IMAGES HISTORY: ASH LEVINE COMPARISON: Radiograph 02/01/2023 Intraoperative imaging during surgery. IMPRESSION: Intraoperative imaging during LEFT foot surgery.
--- NOTE | 2023-10-30 06:19 | P.ANESASSM_ITS ---
Pre-Anesthetic Assessment Height/Weight: Height 1.78 m Preop Diagnosis: Left foot hallux valgus Operation Date: 10/30/23 07:00 Proposed Procedures p Harry Bunionectomy(Left) - Alon Rodriguez DPM Familial anesthetic complications: none Last intake: > 8h rs Social No alcohol and No tobacco Exam alert, oriented x 3, clear to auscultation bilaterally and regular rate & rhythm Airway Mallampati: Class III Dentition: full CV/HEM Coronary Artery Disease Metabolic Hyperlipidemia Anesthetic Plan ASA status: 4 Anesthesia: MAC Medications/Allergies Home Medications Medication Instructions Recorded Confirmed Last Taken Type finasteride 5 mg tablet 5 mg PO DAILY@08/28/19 10/29/23 10/30/23 History simvastatin 80 mg tablet 40 mg PO BEDTIME@199908/28/19 10/29/23 10/30/23 History donepezil 5 mg tablet 10 mg PO DAILY 03/01/21 10/29/23 10/30/23 History lidocaine 5 % topical ointment 1 applic topical DAILY PRN Pain 03/01/21 10/30/23 Unknown History tamsulosin 0.4 mg capsule 0.4 mg PO BID #180 caps 03/01/21 10/29/23 10/30/23 Rx multivitamin (Multiple Vitamins 1 tab PO DAILY 05/17/22 10/29/23 10/30/23 History tablet) sertraline 100 mg tablet 100 mg PO DAILY 05/17/22 10/29/23 10/30/23 History diclofenac sodium 75 mg 75 mg PO Q12H PRN pain #20 tabs 12/01/22 10/30/23 10/30/23 03:45 Rx tablet,delayed release tramadol 50 mg tablet 50 mg PO Q6H PRN pain #40 tabs 12/18/22 10/30/23 10/06/23 18:00 Rx metoprolol tartrate 50 mg tablet 25 mg PO BID@06,20 12/20/22 10/29/23 10/29/23 History clopidogrel 75 mg tablet (Plavix) 75 mg PO DAILY 07/05/23 10/29/23 10/28/23 History isosorbide mononitrate 30 mg 30 mg PO DAILY #90 tabs 10/07/23 10/29/23 10/30/23 Rx tablet,extended release 24 hr hydrocodone 5 mg-acetaminophen 325 1 tab PO Q6H PRN post op pain 7 10/21/23 10/30/23 Unknown Rx mg tablet days #28 tabs pantoprazole 20 mg tablet,delayed 40 mg PO DAILY 10/29/23 10/29/23 10/30/23 History release sennosides 8.6 mg capsule 8.6 mg PO DAILY 10/29/23 10/29/23 10/29/23 History Allergies Allergy/AdvReac Type Severity Reaction Status Date / Time No Known Allergies Allergy Verified 10/30/23 06:14 [facility] Anesthesia Medical History Chest pain Carotid stenosis, bilateral Seropositive rheumatoid arthritis of multiple sites Osteoarthritis of hands, bilateral Immunization counseling High risk medication use Inflammatory arthritis Hx of sciatica Hx of coronary artery disease Hx of hypercholesterolemia Hx of TIA (transient ischemic attack) and stroke Hx of myocardial infarction History of GI bleed History of atrial fibrillation Joint pain Back pain BPH loc w urin obs/LUTS Myocardial infarction Hypercholesterolemia Osteoarthritis BPH (benign prostatic hyperplasia) Surgical History History of coronary artery stent placement History of coronary angioplasty with insertion of stent (02/2017) 2 and 2016 2 History of hip replacement (07/2009) Left, Total. [facility] History of bunionectomy (07/09/18) Trino. Dr. Taylor H/O colonoscopy 09/20/2019: sigmoid diverticulosis H/O esophagogastroduodenoscopy 09/20/2019: hiatal hernia, Barretts esophagus and hiatal hernia S/P ORIF (open reduction internal fixation) fracture left forearm and right elbow Hx of cataract surgery Family History Father , at age 78 CAD (coronary artery disease) Myocardial infarction Mother , at age 83 Stroke Brother Stroke Denies family history of Anesthesia complication Bleeding disorder Social History Smoking and tobacco/nicotine status: former use of tobacco/nicotine Quit status (tobacco/nicotine): has quit using Year quit tobacco: 1986 Former quit date comment: Quit 36 yrs ago Alcohol intake: never Substance/Drug Use: never Household members: spouse Marital status: Current occupational status: retired Data Anesthesia Cardiac Studies: Sestamibi Stress Test (Cardiology) 07/18
[2023-10-30] MEDS: acetaminophen 1,000 MG/100 ML PIGGYBACK 400 MG IV (06:30)
[2023-10-30] MEDS: sodium chloride 0.9% 1,000 ML 30 ML IV (06:30)
[2023-10-30] MEDS: gabapentin 300 mg Capsule PO (06:31)
--- NOTE | 2023-10-30 06:47 | W.PM.OPSUD ---
Surgery/Procedure H&P Update DATE OF PROCEDURE: October 30, 2023 DATE H&P PERFORMED: 10/17/23 H&P UPDATE INFORMATION: I have reviewed H&P completed within last 30 days, I have examined patient prior to procedure, No changes to prior documentation and H[place] is in [facility] on date indicated PREOP DIAGNOSIS: Left foot hallux valgus PLANNED PROCEDURE: Operation Date: 10/30/23 07:00 Proposed Procedures p Harry Bunionectomy(Left) - Alon Rodriguez DPM
[2023-10-30] MEDS: ceFAZolin 2,000 MG in sodium chloride 0.9% (plus) 50 ML 100 MG IV (07:01)
[2023-10-30] MEDS: BUPivacaine 0.5% INJ 30 mL INJECTION (07:35)
--- NOTE | 2023-10-30 08:45 | W.PM.BPON ---
Date of procedure: 10/30/2023 Surgeon name: Dr. Alon Rodriguez D.P.M. Food Service Ambassador(s) name(s): Carlos Procedure(s) performed: Left foot Thomas bunionectomy and second hammertoe repair with PIPJ fusion Description of findings: Hallux valgus deformity with hammertoe deformity Estimated blood loss: 10 cc Tourniquet time: 72 minutes Specimen(s) removed: None Post-operative diagnosis: Hallux valgus left foot hammertoe left foot second digit
--- NOTE | 2023-10-30 08:46 | P.OP_ITS ---
Operative Report Date of procedure: October 30, 2023 Pre-op diagnosis: Left foot hallux valgus, left foot second hammertoe Post-op diagnosis: Same Post-op findings: Resolution of hallux valgus left foot and hammertoe of left second digit Procedure done: 1. Left foot bunionectomy CPT 70167 2. Hammertoe repair of second digit left foot with PIPJ arthrodesis CPT 83693 Implants: 4.0 and 3.5 mm headless compression screws from [employer]. One 0.062 K wire Surgeon: Alon Rodriguez DPM Unattended Ground Sensor Specialist: Carlos Estimated blood loss: 10 cc 72 minutes Complications: None Findings: See above Procedure: Patient is a 78-year-old male that has a history of left foot hallux valgus deformity and second digit hammertoe. The patient has had the aforementioned chief complaint for some time. Conservative treatment measures have been attempted and the patient has opted for surgical intervention at this time. A lengthy discussion regarding the procedure, including risks and complications has been had with the patient and is noted in the recent clinic note. Written and verbal consent have been obtained. All patient questions have been answered to the patient?s satisfaction. No written or verbal guarantees have been given or implied. The patient has been NPO since midnight. The history has been reviewed and the history and physical is current. The signed consent was confirmed and placed in the patient chart. Patient imaging has been reviewed and is consistent with the diagnosis. Under mild sedation, the patient was brought into the operating room and placed on the table in the supine position. IV antibiotics were given by the anesthesia team as preoperative surgical prophylaxis. IV sedation was then performed by the anesthesiateam. A pneumatic tourniquet was then placed about the left ankle. The operative extremity was then prepped and draped in the usual fashion. The extremity was then elevated and exsanguinated before the tourniquet was inflated to 250 mmHg. After inflation, the following procedure was then performed. Attention was directed to the left foot where a stab incision was made using a #15 blade at the level of the first metatarsal neck. Soft tissue Bath was inserted into the incision to free up the dorsal and plantar soft tissues at the level of the first metatarsal neck. Next a Dariana bur was inserted into the incision and a transverse osteotomy was made through the first metatarsal at the surgical neck. The first metatarsal was then rotated in the frontal plane to the appropriate anatomic position and translated laterally in the transverse plane. A lateral release was performed in standard fashion percutaneously using a #15 blade. After the first metatarsal head was in the appropriate position this was temporally fixated using guidewires. With appropriate anatomic position 2 guidewires were driven from proximal medial to distal lateral across the osteotomy site into the first metatarsal head. Good positioning of the wires were confirmed on C-arm imaging. Next a #15 blade was used to make a stab incision over these wires before a 4.0 mm and a 3.5 mm headless compression screw from [employer] were inserted over the wires across the osteotomy site. Good positioning of the screws was noted using C-arm fluoroscopy. Reduction of the medial eminence of the hallux was noted. Good alignment of the first ray was noted. Attention was then directed to the adjacent second digit where a 5 cm incision was made over the second digit using a #15 blade. Dissection was carried down to the level of the extensor tendon which was transected transversely at the level of the proximal interphalangeal joint. Medial and lateral collateral ligaments were resected to expose the head of the proximal phalanx. This was removed using a rongeur. Next, the articular cartilage from the base of the intermediate phalanx was removed using a rongeur. A K wire was driven through the inferior aspect of the intermediate phalanx at the distal a spect of the toe before being driven in retrograde fashion back into the proximal phalanx. Good positioning of the wire was visualized. Rectus alignment of the second digit was also noted. Incisions were then irrigated with copious amounts of sterile saline before attention was directed to closure. Extensor tendon of the second Stephen was reapproximated using 3-0 Vicryl and all skin incisions were closed using 4-0 nylon in horizontal mattress fashion. The incision sites were dressed with Xeroform, 4 x 4 gauze, Kerlix, Dario. Tourniquet was let down good hyperemic response was noted to all digits of the left foot. The patient tolerated the procedure and anesthesia well and without complication. The patient was transported from the operating room to the recovery room with vital signs stable and vascular status intact to all digits of the left foot. The patient was given both written and verbal instructions to remain minimally weightbearing as tolerated in cam boot to the operative ext remity, to keep dressings/splint clean, dry and intact and to take pain medication as directed. The patient will follow-up in the outpatient setting at their scheduled appointment. The patient was discharged with my personal number and was instructed to call if any questions or issues should arise. They were discharged home once anesthesia criteria was met.
--- NOTE | 2023-10-30 10:05 | ANE.PACU2 ---
Inpatient post-anesthesia follow up: Airway intact: Yes Vital signs: Temperature 97.3 F Pulse Rate 74 Respiratory Rate 18 Blood Pressure 107/65 Pulse Oximetry 93 Oxygen Delivery Me thod Room Air Oxygen Flow Rate 8 Fraction of Inspir ed Oxygen Hydration adequate: Yes Nausea and vomiting: No Pain level: 1 Mental status: Baseline
== END 2023-10-30 10:08 | disposition home or self-care (01) ==
PROVIDERS: PCP Family Medicine; Visit Provider Podiatrist Foot & Ankle Surgery
PROC: (CPT 28298; principal; 2023-10-30 07:00)
PROC: (CPT 28285; 2023-10-30 07:00)
DX: M20.12 Hallux valgus (acquired), left foot (principal); M20.42 Other hammer toe(s) (acquired), left foot; I25.10 Atherosclerotic heart disease of native coronary artery without angina pectoris; E78.5 Hyperlipidemia, unspecified; Z86.73 Personal history of transient ischemic attack (TIA), and cerebral infarction without residual deficits; M05.9 Rheumatoid arthritis with rheumatoid factor, unspecified; E78.00 Pure hypercholesterolemia, unspecified; I25.2 Old myocardial infarction; N40.1 Benign prostatic hyperplasia with lower urinary tract symptoms; N13.8 Other obstructive and reflux uropathy; Z87.891 Personal history of nicotine dependence
CPT/HCPCS: 28285; 28296; 73620; 76000; C1713 ×2; J0131; J0690; J1100; J2371; J2405; J2704; J3010; J3490; J7030

== ENCOUNTER → 2023-11-01 10:34 | Outpatient (BNVA) | payer OTHER, SELFPAY | PROVIDERS: PCP Family Medicine; Visit Provider Podiatrist Foot & Ankle Surgery | DX: Z98.890 Other specified postprocedural states (principal); Z01.818 Encounter for other preprocedural examination; M20.12 Hallux valgus (acquired), left foot; M20.42 Other hammer toe(s) (acquired), left foot | CPT/HCPCS: 99024 ==

== ENCOUNTER → 2023-11-07 13:20 | Outpatient (BNVA) | payer OTHER, SELFPAY | PROVIDERS: PCP Family Medicine; Visit Provider Podiatrist Foot & Ankle Surgery | DX: M20.42 Other hammer toe(s) (acquired), left foot (principal); M20.12 Hallux valgus (acquired), left foot; Z98.890 Other specified postprocedural states; Z01.818 Encounter for other preprocedural examination | CPT/HCPCS: 73630; 99024; A6219; A6222 ==

== ENCOUNTER → 2023-11-14 13:04 | Outpatient (BNVA) | payer OTHER, SELFPAY | PROVIDERS: PCP Family Medicine; Visit Provider Podiatrist Foot & Ankle Surgery | DX: M79.671 Pain in right foot (principal); M79.672 Pain in left foot; Z98.890 Other specified postprocedural states; Z01.818 Encounter for other preprocedural examination; M20.12 Hallux valgus (acquired), left foot; M20.42 Other hammer toe(s) (acquired), left foot | CPT/HCPCS: 73630; 99024 ==

== ENCOUNTER → 2023-11-21 11:37 | Outpatient (BNVA) | payer OTHER, SELFPAY | PROVIDERS: PCP Family Medicine; Visit Provider Podiatrist Foot & Ankle Surgery | DX: M79.672 Pain in left foot (principal); Z98.890 Other specified postprocedural states; Z01.818 Encounter for other preprocedural examination; M20.12 Hallux valgus (acquired), left foot; M20.42 Other hammer toe(s) (acquired), left foot | CPT/HCPCS: 73630; 99024 ==

== ENCOUNTER → 2023-12-05 11:03 | Outpatient (BNVA) | payer OTHER, SELFPAY | PROVIDERS: PCP Family Medicine; Visit Provider Podiatrist Foot & Ankle Surgery | DX: Z98.890 Other specified postprocedural states; Z01.818 Encounter for other preprocedural examination; M20.12 Hallux valgus (acquired), left foot; M20.42 Other hammer toe(s) (acquired), left foot | CPT/HCPCS: 73630; 99024 ==

== ENCOUNTER → 2023-12-24 11:55 | Outpatient (BNVA) | payer OTHER, SELFPAY | PROVIDERS: PCP Family Medicine; Visit Provider Internal Medicine Cardiovascular Disease | DX: I25.10 Atherosclerotic heart disease of native coronary artery without angina pectoris (principal); Z95.5 Presence of coronary angioplasty implant and graft; E78.00 Pure hypercholesterolemia, unspecified; I48.0 Paroxysmal atrial fibrillation; I65.29 Occlusion and stenosis of unspecified carotid artery; R94.39 Abnormal result of other cardiovascular function study; R07.9 Chest pain, unspecified | CPT/HCPCS: 99213 ==

== ENCOUNTER 2024-01-09 05:57 | Outpatient (CLI) | payer OTHER, SELFPAY ==
[2024-01-09] VITALS (115 sets, daily range): BP systolic 90–140; BP diastolic 59–101; PULSE 45–110; RESP 16–18; TEMP 36.4–36.9; O2SAT 89–98; BMI 22.0
--- NOTE | 2024-01-09 06:00 | XACV_ITS ---
Exam Room: 2 Ht: 180 cm Wt: 72 kg BSA: 1.89 m2 Gender: Male : 1945 Any Known Allergies: No known allergies Exam Priority: Routine Procedure(s): Procedure Description: Diagnostic procedure Procedure Description: Left Heart Catheterization Procedure Description: Left ventriculography Procedure Description: Miscellaneous Procedure Description: ACT Procedure Description: Coronary Angiography Diagnostic Cath Status: Elective Diagnostic Findings * INDICATION: This procedure was scheduled as a staged PCI of RCA with arthrectomy. However index procedure was performed about 3 months ago. There have been some changes since initial procedure in the coronary anatomy. RCA is almost totally occluded. It has collateralized from contralateral side. That is why we performed coronary angiogram for left system as well to better determine the anatomy.. * Proximal Right Coronary Artery to Mid Right Coronary Artery: severe heavily calcified 90% stenosis. There are then serial heavily calcified subtotally occluded segments (99% stenosis)in the mid to distal RCA. MEDARDO I flow. Left to right collaterals.. * Left Main has no significant disease. * Left Anterior Descending has patent prior stent with moderate diffuse disease. * Circumflex has mild to moderate diffuse luminal irregularities. * Mid Right Coronary Artery: subtotal occlusion, MEDARDO: 1 flow. * Coronary angiography shows right dominance. PCI Status: Elective PCI Indication: Other Interventional Findings * Procedure detail: We attempted revascularization of RCA. RCA was engaged with a 7 Danish AL 0.75 guide catheter. IV heparin was administered to maintain anticoagulation. Using TelePort microcatheter as support, we attempted to cross subtotally, heavily calcified vessel with run-through wire, Fielder XT, airplane pilot commercial 50 and eventually airplane pilot commercial 200 wires. Horticultural Therapist 200 wire crossed the subtotally occluded segment however distally was going in subintimal space and could not be directed back into the true lumen. After multiple attempts, and given RCA has developed collaterals, we decided to abort further attempts at crossing.Medical therapy decided. patient left the laboratory helper in a stable condition. . Conclusions 1. Multiple segments of subtotal occlusions of very heavily calcified RCA from 2. proximal to distal segment 3. . Unsuccessful attempt at 4. revascularization. Aggressive medical therapy. Patient has developed collateral blood supply from left system. 5. . 6. Mild left ventricular systolic dysfunction. Ejection fraction of 40%. Recommendations * Aggressive risk factor modification. * Outpatient cardiology follow up in 2 weeks. Interventional RX Recommendation: medical therapy and/or counseling Diagnostic RX Recommendation: PCI w/o planned CABG Anticoagulation: Heparin Ventriculography Ejection Fraction: 40.0 % Pressures Phase:Rest AO : 106 / 59 ( 77 ) @ 9:02:00 AM 89 / 57 ( 72 ) @ 9:08:00 AM 99 / 63 ( 82 ) @ 9:25:00 AM 99 / 64 ( 80 ) @ 9:38:00 AM 133 / 47 ( 89 ) @ 9:53:00 AM 130 / 65 ( 95 ) @ 9:53:00 AM LV : 137 / 0 / 11 @ 9:52:00 AM 127 / 3 / 13 @ 9:52:00 AM 129 / 4 / 13 @ 9:53:00 AM Valves Phase:DefaultPhase AV : 0.0 @ 9:10:35 AM AV Mean Gradient: 0.0 @ 9:10:35 AM Clinical Evaluation EBL: 5mL-10mL Procedural Details Procedure Consent Obtained. Pre-Procedure Time Out. Identified patient by full name and date of as verbalized by the patient/guarantor. Does the consent match the physician's order: Yes. Accurate & Complete Informed Consent: Yes. Inpatient/Outpatient History & Physical on Chart: Yes. If H&P is completed, is and addenduem needed: No; If yes, is the addendum complete: N/A. Visualize and Verify Site with Patient/Guarantor: N/A. Relevant Radiology Images available: Yes. Pre-op teaching completed and patient verbalized understanding. The risks, benefits, and alternatives of sedation and/or procedure were discussed by physician. The patient agrees to continue. Procedure started. Current Diagnosis : Chest Pain. [facility] Clinical Fraility Score: 4: Vulnerable. Senior Investment Manager Indications: Stable Known CAD. Chest Pain Symptom Assessment: Typical Angina Symptoms. Correct patient, site and procedure confirmed by cath team. Current diagnosis: Chest Pain. PERRLA. Strong, equal hand private sector executive bilaterally. Lungs clear x 5 lobes. IV Site on Arrival: 20 gauge in the left anticubital. IV Fluids: 0.9% NaCl at KVO. 0 mL infused prior to laboratory helper. Pre Procedural Pulses: bilateral dorsalis pedis was 3+. Pre Procedural Pulses: bilateral posterior tibial was 3+. Pre Procedural Pulses: bilateral radial was 3+. Oxygen started at 2liters/min via nasal canula. bilateral groins was prepped with chloroprep then draped in the usual sterile fashion. Baseline sample Acquired. HR: 57 BPM. Physician arrived. AP Pads placed on the patient. Physician scrubbed in. Immediate Pre-Procedure Time Out. Correct Patient: Yes; Correct Procedure: Yes; Correct Site: Yes; Correct Patient Position: Yes; Correct Supplies: Yes; Dried Flammable Prep: Yes; Blood Products Available: N/A;. Lidocaine 1% infiltrated to the right groin. Arterial access obtained with micropuncture set. Venous access obtained with a micropuncture set. Sheath upsized to a 7 Fr. 7 bangladeshi AL 0.75 guide catheter was inserted over the wire. 300cm Runthrough guidewire was advanced through the guide catheter to lesion in the mid RCA. 1.2x12mm Mini Trek balloon inserted and advanced OTW. Balloon out OTW. Runthrough wire out. Teleport catheter and Horticultural Therapist 50 guidewire inserted and advanced to the RCA. Horticultural Therapist 50 wire out. Fielder wire inserted and advanced to the RCA. Fielder wire out. Horticultural Therapist 200 wire inserted and advanced to the RCA. Wire out. 300cm Runthrough wire inserted and advanced to the RCA. Patient's family updated. Wire out. Horticultural Therapist 200 wire inserted and advanced to the RCA. Wire out. Results checked. Guide catheter out. A 5 bangladeshi JL4 catheter in over wire. Multiple views taken of left coronary artery. Catheter removed over the standard wire. A 5 bangladeshi Angled Pig catheter in over wire. ACT drawn. Results 302 seconds. Therapeutic limits - pre-heparin administration 90-150 seconds and monitoring heparin during a vascular procedure >250 seconds. EDP Sample taken: LV 137/0,11; HR: 57 BPM; SpO2: 90%. LV gram performed in PRASAD @ 10 mL/second for a total of 30 mL. EDP Sample taken: LV 127/3,13; HR: 72 BPM; SpO2: 90%. Pullback taken: LV 129/4,13; AO 133/47(89); Mean: 0mmHg, Peak to Peak: 0mmHg, SEP: 18sec/min; HR: 62 BPM; SpO2: 90%. Catheter removed over the standard wire. The long 7FR sheath was exchanged for a short 7FR sheath. A Suture was successful obtaining hemostatsis at the Right Femoral artery insertion site. A Suture was successful obtaining hemostatsis at the Right Femoral vein insertion site. Arterial sheath flushed and connected to tranducer and pressure bag with heparinized saline. Post Procedure: Pulses reassessed and unchanged. PERRLA. Strong, equal hand private sector executive bilaterally. No VTE prophylaxis required. Medication's Wasted: Other = Fentanyl 75mcg Versed 1 mg. Medication's Wasted: Lidocaine 1% = 10 mL. Medication's Wasted: Heparin = 2000 units. Medication's Wasted: Nitro = 50 mg. Medication's Wasted: Other = Verapamil 5 mg. Total IV fluids: 100 mL. Estimated blood loss: 5mL-10mL. Post-op diagnosis: VEGETABLE CUTTER of the RCA. Complications: None. Responsiveness - Normal response to verbal stimuli; alert and oriented, PERRLA. Airway - Unaffected, no intervention required; spontaneous ventilation. Circulation: W/N/L, pulses unchanged. Nausea/Vomiting: No. A Right femoral angiogram was performed to determine safe placement of closure device. Procedure completed. Patient transferred by bed to CPRU. Vital chart was stopped. Access Site Site: Right Femoral artery Sheath Size: 6 Fr Hemostasis Method: Suture Hemostasis Success: Successful Site: Right Femoral vein Sheath Size: 6 Fr Hemostasis Method: Suture Hemostasis Success: Successful Procedure Medications Start: 7:45 AM Stop: 7:45 AM Medication: Versed 1 mg and Fentanyl 25 mcg Amount: 1 Route: I.V. Start: 7:59 AM Stop: 7:59 AM Medication: Heparin Amount: 7000 units Route: I.V. I, the attending physician, have reviewed and verified all procedure medications. Yes, all medications given per verbal order History/Risk Factors Hypertension: No Dyslipidemia: Yes Peripheral Arterial Disease (PAD): No Myocardial Infarction (NM): Yes Obesity: No Renal Disease: No Tobacco Use: Former Prior Interventions PCI: Yes CABG: No Valve Surgery: No Date of PCI: 03/25/2017 Report Signatures Finalized by Can Shaffer MD on 01/12/2024 04:24 PM
[2024-01-09] MEDS: diphenhydrAMINE 50 mg Capsule PO (06:10)
[2024-01-09] MEDS: aspirin 325 mg Tablet PO (06:10)
[2024-01-09 06:18] LABS: Basophils # 0.1 10^3/uL (0.0-0.1); Basophils % 1.1 %; Eosinophils # 0.3 10^3/uL (0.0-0.8); Eosinophils % 3.6 %; Hematocrit 43.2 % (37-53); Lymphocytes % 24.4 %; Mean Corpuscular HGB Conc 33.3 g/dL (30-55); Mean Corpuscular Hemoglobin 30.2 pg (27-33); Mean Corpuscular Volume 90.6 fl (82-101); Mean Platelet Volume 8.9 fL (7.4-10.4); Monocytes # 0.8 10^3/uL (0.2-0.9); Monocytes % 9.4 %; Neutrophils # 5.13 10^3/uL (1.8-7.7); Neutrophils % 61.3 %; Nucleated Red Blood Cells % 0 %; Platelet Count 236 10^3/cmm (157-399); Red Blood Count 4.77 10^6/uL (3.85-5.65); Red Cell Distribution Width 13.4 % (12.1-15.1); White Blood Count 8.37 10^3/uL (3.29-11.43)
[2024-01-09 06:44] LABS: Blood Urea Nitrogen 14 mg/dL (8-23); Calcium 9.4 mg/dL (8.5-10.5); Carbon Dioxide 23 mmol/L (22-29); Chloride 107 mmol/L (98-107); Creatinine Clr Calc Pharmacy 80.7704; Glucose 95 mg/dL (65-115); Osmolality Calculated 292 mOsm/kg (285-295); Sodium 141 mmol/L (136-145)
--- NOTE | 2024-01-09 07:31 | W.PM.OPSUD ---
Surgery/Procedure H&P Update DATE OF PROCEDURE: January 09, 2024 DATE H&P PERFORMED: 12/24/23 H&P UPDATE INFORMATION: I have reviewed H&P completed within last 30 days, I have examined patient prior to procedure and No changes to prior documentation PREOP DIAGNOSIS: Staged PCI of RCA PRIMARY INDICATION FOR PROCEDURE: Staged PCI of RCA PLANNED PROCEDURE: Operation Date: 01/09/24 07:00 Proposed Procedures p Cardiac Catheterization 90310, I25.10(Left) - Can Shaffer M.D Staged PCI of RCA PATIENT REASSESSED PRIOR TO SEDATION, WITH NO CHANGE NOTED: Yes PHYSICAL EXAM: alert, oriented x 3, clear to auscultation bilaterally and regular rate & rhythm AIRWAY EVAL/ANESTHESIA PLAN: normal airway, ASA III, Local Anesthesia, Risks, benefits & alternatives of sedation and/or procedure discussed and Patient agrees to continue as planned
[2024-01-09] MEDS: fentaNYL 50 mcg/mL INJ 2mL 25 MCG IVP (09:42)
[2024-01-09] MEDS: sodium chloride 0.9% 1,000 ML 50 ML IV (10:59)
--- NOTE | 2024-01-09 11:04 | PC.NURSE ---
pt arrived on floor at 1045 am with two sheaths in the right groin. Report taken from laboratory assistant RN, Donte. Patient hooked up to telemetry and is lying in bed with family at bedside. Vitals WNL, although patient does run slightly james (48-60) this is normal for patient.
[2024-01-09 13:28] LABS: Partial Thromboplastin Time 41.3 SECONDS (23.9-36.7)
--- NOTE | 2024-01-09 21:52 | PC.NURSE ---
Patients bedrest completed at 21:30 patient was ambulated to BR and in hallway. Right groin site is dry and intact no hematoma present, Pedal pulses are palpable and patient denies any pain. Discharge information was discussed with patient and patients family member. Patient was leaving with family member, transported to parking lot by wheelchair.
== END 2024-01-09 21:56 | disposition home or self-care (01) ==
LOC: CCL 05:59 → CSU 10:56
PROVIDERS: Internal Medicine; PCP Family Medicine; Visit Provider Internal Medicine Cardiovascular Disease
DX: I25.10 Atherosclerotic heart disease of native coronary artery without angina pectoris (principal); I25.84 Coronary atherosclerosis due to calcified coronary lesion; I10 Essential (primary) hypertension; E78.5 Hyperlipidemia, unspecified; I25.2 Old myocardial infarction; Z87.891 Personal history of nicotine dependence; Z86.73 Personal history of transient ischemic attack (TIA), and cerebral infarction without residual deficits; N40.1 Benign prostatic hyperplasia with lower urinary tract symptoms; N13.8 Other obstructive and reflux uropathy; M19.90 Unspecified osteoarthritis, unspecified site; Z82.49 Family history of ischemic heart disease and other diseases of the circulatory system; Z95.5 Presence of coronary angioplasty implant and graft; E78.00 Pure hypercholesterolemia, unspecified; I48.0 Paroxysmal atrial fibrillation
CPT/HCPCS: 36415; 80048; 85025; 85347; 85730; 93458; 96374; 96375; 99152; 99153; C1725; C1769; C1887; C1894; G0378; J0461; J1644; J2250; J3010; J3490; J7030; Q0163; Q9967

== ENCOUNTER → 2024-01-23 13:42 | Outpatient (BNVA) | payer OTHER, SELFPAY | PROVIDERS: PCP Family Medicine; Visit Provider Podiatrist Foot & Ankle Surgery | DX: M20.12 Hallux valgus (acquired), left foot (principal); Z98.890 Other specified postprocedural states; M20.42 Other hammer toe(s) (acquired), left foot | CPT/HCPCS: 73630; 99024 ==

== ENCOUNTER → 2024-02-05 13:30 | Outpatient (BNVA) | payer OTHER, SELFPAY | PROVIDERS: PCP Family Medicine; Visit Provider Nurse Practitioner Family | DX: I25.10 Atherosclerotic heart disease of native coronary artery without angina pectoris (principal); Z87.891 Personal history of nicotine dependence | CPT/HCPCS: 99214 ==

== ENCOUNTER 2024-03-27 13:09 | Outpatient (CLI) | payer OTHER, SELFPAY ==
--- NOTE | 2024-03-27 13:19 | USCV_ITS ---
Matthew Mederos Age: 78 Gender: M : 1945 Exam Date: 03/27/2024 13:45 Ordering Phys: Pascual Fernandes Technologist: Nathan Hills Exam Location[place] [facility] [place] Indication: ischemic heart disease BP: 114 / 73 HR: 51 Rhythm: Sinus Technical Quality: Adequate MEASUREMENTS (Male / Female) Normal Values 2D ECHO LV Diastolic Diameter PLAX 3.7 cm 4.2 - 5.9 / 3.9 - 5.3 cm IVS Diastolic Thickness 1.0 cm 0.6 - 1.0 / 0.6 - 0.9 cm IVS Systolic Thickness 1.5 cm LVPW Diastolic Thickness 1.8 cm 0.6 - 1.0 / 0.6 - 0.9 cm LVPW Systolic Thickness 1.7 cm LVOT Diameter 2.1 cm LV Ejection Fraction 2D Teich 54.6 % LV Ejection Fraction MOD 4C 54.5 % LV Ejection Fraction MOD 2C 44.1 % LV Ejection Fraction 2C AL 47.5 % LA Diameter 3.6 cm RA Systolic Volume 4C AL 39.8 ml RA Systolic Volume 4C MOD 41.0 ml LA Sys Volume AL 55.0 cm cubed LA Sys Volume Index AL 128.2 cm cubed/m squared Aorta at Sinotubular Diameter 2.3 cm IVC Diameter 1.4 cm M-MODE LA Ao Ratio MM 1.1 AV Cusp Separation MM 1.8 cm DOPPLER AV Peak Velocity 145.0 cm/s LVOT Peak Velocity 105.0 cm/s AV Area Cont Eq vti 2.4 cm squared AV Area Cont Eq pk 2.6 cm squared MV Peak Velocity 96.0 cm/s MV Area PHT 3.3 cm squared Mitral E to A Ratio 0.5 TV Peak Velocity 166.5 cm/s TR Peak Velocity 171.0 cm/s TR Peak Gradient 11.7 mmHg TR Mean Velocity 135.0 cm/s TR Mean Gradient 7.8 mmHg TR Velocity Time Integral 45.8 cm PV Peak Velocity 89.0 cm/s RV Ejection Time 0.3 s FINDINGS Left Ventricle Liver needle is normal in size. LV systolic function is normal with EF of 50 to 55%. No regional wall motion abnormalities are seen. Grade 1 diastolic dysfunction. Right Ventricle Normal in size and function. Right Atrium Normal in size. Left Atrium Normal in size. Mitral Valve Structurally normal mitral valve. Trace mitral regurgitation. Aortic Valve Aortic valve is thickened. No significant stenosis or regurgitation. Tricuspid Valve Mild tricuspid regurgitation. Insufficient TR jet to calculate RVSP. Pulmonic Valve Not well visualized Pericardium Normal Aorta Normal in size IVC Appears to be normal CONCLUSIONS LV systolic function is normal with EF of 50-55% Grade 1 diastolic dysfunction Trace mitral regurgitation Mild tricuspid regurgitation Compared to prior echocardiogram freom 2017, LV systolic function has improved slightly. Can Shaffer MD (Electronically Signed) Final Date: 30 March 2024 18:43 S
== END 2024-03-27 13:10 | disposition home or self-care (01) ==
LOC: RAD 13:10
PROVIDERS: PCP Family Medicine; Visit Provider Chiropractor
DX: I25.9 Chronic ischemic heart disease, unspecified (principal); I50.30 Unspecified diastolic (congestive) heart failure
CPT/HCPCS: 93306

== ENCOUNTER 2024-05-19 10:19 | Outpatient (CLI) | payer OTHER, SELFPAY ==
--- NOTE | 2024-05-19 10:33 | ECG_ITS ---
LiveB[facility] Test Date: 2024-05-19 Pat Name: Matthew Mederos Department: Room: Gender: Male Financial Systems Administrator: : 1945 Requested By: Can Shaffer Order Number: [id number] Ayden MD: Yobani Penaloza M.D. Interpretive Statements PROCEDUREa: At the baseline, the EKG revealed sinus bradycardia with frequent supraventricular ectopics. Possible old septal LA. Nonspecific T wave changes. The baseline heart was 58 bpm with a blood pressue of 125/88 mm of Hg Lexiscan was infused over a period of 20 seconds. A total of 0.4 milligrams of Lexiscan was infused. The stress phase was continued for a total of 5 minutes. Heart rate at the end of the stress phase was 88 bpm with a blood pressure 130/84 mm of Hg. The EKG at the peak infusion revealed no significant changes. Occasional PVCs were noted during the recovery phase Sestamibi was injected 20 seconds after the Lexiscan infusion. Heart rate at the end of the recovery phase was 71 bpm with a blood pressure of 126/84 mm of Hg. CONCLUSION: 1. No significant EKG changes with the LexiScan infusion 2. No LexiScan induced chest pain or cardiac arrhythmia 3. Normal blood pressure and heart rate response 4. Sestamibi/sestamibi perfusion scan pending; see separate report. Lung unchanged pre/post procedure; No Symptoms Reported Electronically Signed On 05-20-2024 08:05:08 CDT by Yobani Penaloza M.D. [email or web address]
--- NOTE | 2024-05-19 10:33 | NMCV_ITS ---
NM bin perf SPECT r/s* [id number] Matthew Mederos Age: 78 Gender: M : 1945 Exam Date: 05/19/2024 11:30 Ordering Phys: Can Shaffer M.D ([email or web address]) Technologist: MARCELLUS Naqvi Exam Location: [facility] Indications: cp STRESS TEST Please [facility] for [facility] IMAGE PROTOCOL Rest/Stress 1 Lexiscan Day Radiopharmaceutical Dose (mCi) Administration Site Administered by Rest: Tc-99m 9.2 IV MARCELLUS Naqvi Sestamibi Stress:Tc-99m 27.3 IV Jayla Clay, CLINICAL TRIALS DATA COORDINATOR Sestamibi Rest: 19-May-2024 60 Discovery 630 Stress: 19-May-2024 30 Discovery 630 0.4mg Lexiscan. Supine position only as patient was unable to lay prone. SPECT RESULTS Technical Quality: Good Raw Data Analysis: Normal Image Corrections: No attenuation or motion correction applied Summed Stress Score: 16 Summed Rest Score: 16 Summed Difference Score: 8 PERFUSION FINDINGS Large area of fixed perfusion defect noted in basal to distal inferior inferoseptal and inferolateral lateral wall surrounded by medium sized area of moderate to severe ischemia noted in the mid to distal lateral wall suggestive of old myocardial infarction surrounded by medium sized area of moderate to severe ischemia. FUNCTIONAL RESULTS (calculated via Gated SPECT) Stress Image LV EF (%): 54 Stress EDV (mL):97 TID: 0.79 Stress ESV (mL):45 FUNCTIONAL FINDINGS: Moderately depressed left ventricular ejection fraction, inferior wall akinesis IMPRESSIONS Large area of old myocardial infarction noted in basal to distal inferior inferolateral and inferoseptal wall surrounded by medium sized area of moderate to severe ischemia, EKG segment will be documented separately. Brice Albright MD (Electronically Signed) Final Date: 19 May 2024 20:05 S
[2024-05-19 10:34] VITALS: BMI 21.7
[2024-05-19] MEDS: regadenoson 0.4 Mg/5 ml Syringe IVP (12:30)
[2024-05-19 12:41] VITALS: BP 122/83; PULSE 70
== END 2024-05-19 10:20 | disposition home or self-care (01) ==
PROVIDERS: PCP Family Medicine; Visit Provider Internal Medicine
DX: R07.9 Chest pain, unspecified (principal); R94.39 Abnormal result of other cardiovascular function study
CPT/HCPCS: 36415; 78452; 93017; 96374; A9500; J2785

== ENCOUNTER 2024-06-02 07:51 | Outpatient (CLI) | payer OTHER, SELFPAY ==
--- NOTE | 2024-06-02 07:53 | CT_ITS ---
WS: [id number] CT PARANASAL SINUSES HISTORY: SINUSITIS HEADACHE TECHNIQUE: Contiguous 2.5 mm axial images obtained through the sinuses. Images are reconstructed in s agittal and coronal planes. All CT scans at [facility] use at least one of these dose optimiz ation techniques: automated exposure control; mA and/or kV adjustment per patient size (includes targ eted exams where dose is matched to clinical indication); or iterative reconstruction. DLP: 1584.86 mGy.cm COMPARISON: None available. Frontal sinuses: Normal. Sphenoid sinus: Normal. Ethmoid sinuses: No significant disease. Maxillary sinus: No air-fluid levels. Minimal mucoperiosteal thickening. Ostiomeatal unit: Ostiomeatal units are both patent. There is a small amount of mucoperiosteal thicke yossi but no obstruction. Minimal curvature and deviation of the nasal septum. No significant bony spurring. Orbits and globes are negative. No mastoid air cell disease. CT/CT sinus wo con* [id number] IMPRESSION: 1. No air-fluid levels or significant paranasal sinus disease. 2. Patent ostiomeatal units.
--- NOTE | 2024-06-02 07:53 | CT_ITS ---
WS: [id number] CT HEAD NONCONTRAST HISTORY: HEADACHE/HX OF TIA TECHNIQUE: Contiguous axial imaging performed through the brain. Bone and soft tissue windows. Sagitt al and coronal reformats reviewed. All CT scans at [facility] use at least one of these dose optimization techniques: automated exposure control; mA and/or kV adjustment per patient size (includ es targeted exams where dose is matched to clinical indication); or iterative reconstruction. DLP: 1584.86 mGy.cm COMPARISON: 12/01/2022 No acute intracranial hemorrhage, midline shift or mass effect. Mild bilateral cerebral atrophy. Moderate vessel ischemic disease noted bilaterally in the [place] er. No prior infarct. Ventricles: Normal size with no hydrocephalus. No inferior displacement of the cerebellar tonsils. Paranasal sinuses: As visualized are clear. Mastoid air cells: Well pneumatized. Calvarium and scalp: Skull is intact with no soft tissue edema or swelling. CT/CT head wo con* [id number] IMPRESSION: 1. No acute intracranial hemorrhage or edema. 2. Mild cerebral atrophy and moderate small vessel disease.
== END 2024-06-02 07:52 | disposition home or self-care (01) ==
LOC: RAD 07:52
PROVIDERS: PCP Family Medicine; Visit Provider Family Medicine
DX: I67.82 Cerebral ischemia (principal); J01.90 Acute sinusitis, unspecified
CPT/HCPCS: 70450; 70486

== ENCOUNTER → 2024-07-02 10:54 | Outpatient (BNVA) | payer OTHER, SELFPAY | PROVIDERS: PCP Family Medicine; Visit Provider Internal Medicine | DX: Z95.5 Presence of coronary angioplasty implant and graft (principal); E78.00 Pure hypercholesterolemia, unspecified; I25.10 Atherosclerotic heart disease of native coronary artery without angina pectoris; I48.0 Paroxysmal atrial fibrillation; I65.29 Occlusion and stenosis of unspecified carotid artery; R94.39 Abnormal result of other cardiovascular function study; R07.9 Chest pain, unspecified | CPT/HCPCS: 99214 ==

== ENCOUNTER 2024-07-14 17:47 | Emergency (ER) | payer OTHER, SELFPAY ==
--- NOTE | 2024-07-14 17:48 | XRR_ITS ---
PROCEDURE INFORMATION: Exam: XR Right Hip Exam date and time: 07/14/2024 6:27 PM Age: 79 years old Clinical indication: Hip pain; Right hip; Prior surgery; Surgery date: 6+ months; Surgery type: Left hip in 2009; Additional info: Injury TECHNIQUE: Imaging protocol: Radiologic exam of the right hip. Views: 1 view hip with pelvis when performed. COMPARISON: CR XR hip RT 2-3V wo/w pel* [id number] 12/11/2017 10:28 AM FINDINGS: Bones/joints: There is left hip replacement with prosthetic components in anatomic alignment without evidence of fracture or loosening. There are mild degenerative changes in the right hip with some mild superior joint space narrowing and marginal osteophytes. No fracture is identified. There are degenerative changes in the lumbar spine. Soft tissues: Unremarkable. XR/XR hip RT 2-3V wo/w pel* [id number] IMPRESSION: No fracture is identified.
[2024-07-14 17:53] VITALS: BP 150/88; PULSE 81; RESP 16; TEMP 36.7; O2SAT 97; BMI 22.4
--- NOTE | 2024-07-14 19:57 | ED_ITS ---
HPI - Extremity Problem General: Chief complaint: Extremity Injury, Lower Stated complaint: rt hip inj Time Seen by Provider: 07/14/24 18:07 Source: patient and family Mode of arrival: wheelchair Limitations: no limitations History of Present Illness: Patient is a 79-year-old male who presents to the emergency department with acute on chronic right hip pain. States he was told to come to the ER from the CT for a workup, couple days ago he fell forward, thinks this may have caused his pain to increase in his right hip. History of arthroplasty in 2009, says it intermittently bothers him since this. Reports that he use a walker to ambulate, this is still been difficult and pain is specifically worse in the morning when he gets out of bed. States he has been falling somewhat more recently, but also states that he likes to get up and go. No other injuries reported with the fall the other day. He states pain primarily to the posterior hip, also is reporting some pelvic pain and even some pain in the left hip. States he has not followed up with orthopedic surgeon anytime recently. He normally just takes ibuprofen or Tylenol for pain. MD Complaint: joint pain Onset (ago): day(s) Pain Consistency: constant Location: right and lower extremity (Hip) Relieving factors: immobilization Exacerbating factors: weight bearing and walking Associated symptoms: Deny chest pain, fever(s) or rash Related Data Home Medications Medication Instructions Recorded Confirmed finasteride 5 mg tablet 5 mg PO DAILY@08/28/19 07/02/24 simvastatin 80 mg tablet 40 mg PO BEDTIME@199908/28/19 07/02/24 donepezil 5 mg tablet 10 mg PO DAILY 03/01/21 07/02/24 multivitamin (Multiple Vitamins 1 tab PO DAILY 05/17/22 07/02/24 tablet) sertraline 100 mg tablet 100 mg PO DAILY 05/17/22 07/02/24 metoprolol tartrate 50 mg tablet 25 mg PO BID@12/20/22 07/02/24 clopidogrel 75 mg tablet (Plavix) 75 mg PO DAILY 07/05/23 07/02/24 pantoprazole 20 mg tablet,delayed 40 mg PO DAILY 10/29/23 07/02/24 release sennosides 8.6 mg capsule 8.6 mg PO DAILY 10/29/23 07/02/24 Previous Rx's Medication Instructions Recorded tamsulosin 0.4 mg capsule 0.4 mg PO BID #180 caps 03/01/21 diclofenac sodium 75 mg 75 mg PO Q12H PRN pain #20 tabs 12/01/22 tablet,delayed release isosorbide mononitrate 30 mg 30 mg PO BID #180 tabs 02/05/24 tablet,extended release 24 hr Allergies Allergy/AdvReac Type Severity Reaction Status Date / Time No Known Allergies Allergy Verified 07/14/24 17:50 Review of Systems General: Reports: 10 or more systems reviewed and unremarkable except in HPI and below Const: Reports: other (Fall); Denies: fever(s) or chills Card: Denies: chest pain Resp: Denies: dyspnea or productive cough GI: Denies: abdominal pain, nausea, vomiting or diarrhea : Denies: flank pain Musc: Reports: joint pain (Right hip) and limited range of motion; Denies: neck pain, back pain, extremity pain, extremity swelling, joint swelling, joint redness, joint warmth or muscle weakness Skin/Breast: Denies: rash Neuro: Denies: headache(s), numbness in extremities or weakness in extremities PFSH ED PFSH: Medical History Chest pain Carotid stenosis, bilateral Seropositive rheumatoid arthritis of multiple sites Osteoarthritis of hands, bilateral Immunization counseling High risk medication use Inflammatory arthritis Hx of sciatica Hx of coronary artery disease Hx of hypercholesterolemia Hx of TIA (transient ischemic attack) and stroke Hx of myocardial infarction History of GI bleed History of atrial fibrillation Joint pain Back pain BPH loc w urin obs/LUTS Myocardial infarction Hypercholesterolemia Osteoarthritis BPH (benign prostatic hyperplasia) Surgical History History of coronary artery stent placement History of coronary angioplasty with insertion of stent (02/2017) History of hip replacement (07/2009) Left, Total. [facility] History of bunionectomy (07/09/18) Trino. Dr. Taylor H/O colonoscopy 09/20/2019: sigmoid diverticulosis H/O esophagogastroduodenoscopy 09/20/2019: hiatal hernia, Barretts esophagus and hiatal hernia S/P ORIF (open reduction internal fixation) fracture left forearm and right elbow Hx of cataract surgery Family History Father , at age 78 CAD (coronary artery disease) Myocardial infarction Mother , at age 83 Stroke Brother Stroke Denies family history of Anesthesia complication Bleeding disorder Social History Smoking and tobacco/nicotine status: former use of tobacco/nicotine Quit status (tobacco/nicotine): has quit using Year quit tobacco: 1986 Former quit date comment: Quit 36 yrs ago Alcohol intake: never Substance/Drug Use: never Household members: spouse Marital status: Current occupational status: retired Physical Exam Const: COMMON NORMALS: no acute distress, patient oriented x3, no limitations, healthy appearing, alert and well nourished HENMT: COMMON NORMALS: normocephalic and atraumatic HEAD & SCALP: normocephalic and atraumatic Neck/C-Spine: COMMON NORMALS: full ROM, supple and no meningeal signs Extremity: COMMON NORMALS: normal to inspection, full ROM, capillary refill normal, no joint enlargement and no clubbing, cyanosis or edema NARRATIVE EXTREMITY EXAM: Symmetrical strength to bilateral hips, equal flexion and extension. Negative logroll. Positive reproducible tenderness to palpation to the right buttock region, no lateral hip tenderness or anterior hip tenderness. Distal sensations intact. Neuro: COMMON NORMALS: patient oriented x3, moves all extremities, no focal motor deficits and no sensory deficits noted SENSORIUM/ORIENTATION: Yes alert MENINGEAL SIGNS: Yes no meningeal signs Skin: COMMON NORMALS: no rashes or lesions noted GENERAL SKIN EXAM: no rashes or lesions noted Course Vital Signs: Vital signs: Vital Signs Temperature 98.0 F 07/14/24 17:53 Pulse Rate 81 07/14/24 17:53 Respiratory Rate 16 07/14/24 17:53 Blood Pressure 150/88 07/14/24 17:53 Pulse Oximetry 97 07/14/24 17:53 MDM - Extremity (Nontraumatic) Medical Decision Making Patient had history of hip arthroplasty in 2009, was having an acute on chronic pain exacerbation status post fall a few days ago. X-ray of the hip and pelvis did not demonstrate any fractures, was given 1 dose of hydromorphone here and [facility] and [facility]. No fracture or dislocation here needing acute orthopedic consultation. He does ambulate with a walker will continue to do so and instructed him to have care with transferring and return with any new or worsening. Lab Data Radiology Impressions Hip/Pelvis X-Ray 07/14/24 17:48 IMPRESSION: No fracture is identified. All radiology interpretation(s) finalized by discharge Discharge Plan Discharge Patient Disposition: Home Clinical Impression: Chronic hip pain Qualifiers: Laterality: right Qualified Code(s): M25.551 - Pain in right hip Condition: Stable Prescriptions: No Action donepezil 5 mg tablet 10 mg PO DAILY tamsulosin 0.4 mg capsule 0.4 mg PO BID Qty: 180 3RF metoprolol tartrate 50 mg tablet 25 mg PO BID@06,20 finasteride 5 mg tablet 5 mg PO DAILY@06 simvastatin 80 mg tablet 40 mg PO BEDTIME@2000 sertraline 100 mg tablet 100 mg PO DAILY multivitamin [Multiple Vitamins] Tablet 1 tab PO DAILY clopidogrel [Plavix] 75 mg tablet 75 mg PO DAILY isosorbide mononitrate 30 mg tablet extended release 24 hr 30 mg PO BID Qty: 180 3RF diclofenac sodium 75 mg tablet,delayed release (DR/EC) 75 mg PO Q12H PRN (Reason: pain) Qty: 20 0RF pantoprazole 20 mg Tablet,Delayed Release (Dr/Ec) 40 mg PO DAILY sennosides 8.6 mg Capsule 8.6 mg PO DAILY Discharge Orders: Discharge ED (Routine); Ordered 07/14/24 Ordered By: Alon Pearce Referrals: Elda Corral MD [Primary Care Provider] - Patient Instructions: Hip Pain (ED) Activity Restrictions/Additional Instructions: [facility] Care with transferring, continue using walker for ambulation. Continue alternating ibuprofen and Tylenol for any pain. See attached patient instructions for further education. Return with any new or worsening symptoms. Coding Level of Care Code ED Circuit Design Engineer for Maya Hogue
[2024-07-14 20:52] VITALS: BP 147/86; PULSE 72; O2SAT 97
== END 2024-07-14 20:53 | disposition home or self-care (01) ==
PROVIDERS: Emergency Provider Physician Assistant; PCP Family Medicine
DX: M25.551 Pain in right hip (principal); Z79.02 Long term (current) use of antithrombotics/antiplatelets; Z87.891 Personal history of nicotine dependence; Z95.5 Presence of coronary angioplasty implant and graft; I25.2 Old myocardial infarction; Z86.73 Personal history of transient ischemic attack (TIA), and cerebral infarction without residual deficits; I25.10 Atherosclerotic heart disease of native coronary artery without angina pectoris
CPT/HCPCS: 73502; 99283

== ENCOUNTER → 2024-12-30 11:06 | Outpatient (BNVA) | payer OTHER, SELFPAY | PROVIDERS: PCP Family Medicine; Visit Provider Podiatrist Foot & Ankle Surgery | DX: I73.9 Peripheral vascular disease, unspecified (principal); L60.3 Nail dystrophy; L84 Corns and callosities; Z98.890 Other specified postprocedural states; M20.12 Hallux valgus (acquired), left foot; M20.42 Other hammer toe(s) (acquired), left foot | CPT/HCPCS: 11056; 11721; 99213 ==

== ENCOUNTER → 2025-01-04 13:11 | Outpatient (BNVA) | payer OTHER, SELFPAY | PROVIDERS: PCP Family Medicine; Visit Provider Internal Medicine | DX: I25.118 Atherosclerotic heart disease of native coronary artery with other forms of angina pectoris (principal); I65.29 Occlusion and stenosis of unspecified carotid artery; I48.0 Paroxysmal atrial fibrillation; Z79.02 Long term (current) use of antithrombotics/antiplatelets; E78.00 Pure hypercholesterolemia, unspecified; Z95.5 Presence of coronary angioplasty implant and graft; Z86.73 Personal history of transient ischemic attack (TIA), and cerebral infarction without residual deficits; Z87.891 Personal history of nicotine dependence; I25.2 Old myocardial infarction | CPT/HCPCS: 99213 ==

== ENCOUNTER → 2025-03-03 11:21 | Outpatient (BNVA) | payer OTHER, SELFPAY | PROVIDERS: PCP Family Medicine; Visit Provider Podiatrist Foot & Ankle Surgery | DX: I73.9 Peripheral vascular disease, unspecified (principal); L60.8 Other nail disorders; L84 Corns and callosities; L97.522 Non-pressure chronic ulcer of other part of left foot with fat layer exposed; L03.116 Cellulitis of left lower limb | CPT/HCPCS: 11042; 11721; 99214 ==

== ENCOUNTER → 2025-03-10 11:13 | Outpatient (BNVA) | payer OTHER, SELFPAY | PROVIDERS: PCP Family Medicine; Visit Provider Podiatrist Foot & Ankle Surgery | DX: I73.9 Peripheral vascular disease, unspecified (principal); L97.522 Non-pressure chronic ulcer of other part of left foot with fat layer exposed; L60.8 Other nail disorders; L84 Corns and callosities; L03.116 Cellulitis of left lower limb | CPT/HCPCS: 99213 ==

== ENCOUNTER → 2025-03-17 10:54 | Outpatient (BNVA) | payer OTHER, SELFPAY | PROVIDERS: PCP Family Medicine; Visit Provider Podiatrist Foot & Ankle Surgery | DX: L97.522 Non-pressure chronic ulcer of other part of left foot with fat layer exposed (principal); L03.90 Cellulitis, unspecified; L60.8 Other nail disorders; L84 Corns and callosities; M79.672 Pain in left foot; I73.9 Peripheral vascular disease, unspecified; L03.116 Cellulitis of left lower limb | CPT/HCPCS: 99213 ==

== ENCOUNTER → 2025-05-13 10:55 | Outpatient (BNVA) | payer OTHER, SELFPAY | PROVIDERS: PCP Family Medicine; Visit Provider Podiatrist Foot & Ankle Surgery | DX: I73.9 Peripheral vascular disease, unspecified (principal); L60.8 Other nail disorders; L84 Corns and callosities; L97.522 Non-pressure chronic ulcer of other part of left foot with fat layer exposed; L03.116 Cellulitis of left lower limb | CPT/HCPCS: 11055; 11721; 99213 ==

== ENCOUNTER 2025-05-14 08:14 | Outpatient (CLI) | payer OTHER, SELFPAY ==
--- NOTE | 2025-05-14 08:29 | CT_ITS ---
WS: [id number] CT HEAD NONCONTRAST HISTORY: HEADACHES TECHNIQUE: Contiguous axial imaging performed through the brain. Bone and soft tissue windows. Sagittal and coronal reformats reviewed. All CT scans at [facility] use at least one of these dose optimization techniques: automated exposure control; mA and/or kV adjustment per patient size (includes targeted exams where dose is matched to clinical indication); or iterative reconstruction. DLP: 1048.58 mGy.cm COMPARISON: 06/02/2024 Mild to moderate cerebral and cerebellar atrophy with small vessel disease. No large territory infarct. No hemorrhage. No edema. Small lacunar infarct genu RIGHT internal capsule. Perivascular space versus lacunar infarct inferior LEFT basal ganglia. No hemorrhage or edema. Ventricles: Ventricles and extra-axial spaces are mildly prominent on the basis of atrophy. Paranasal sinuses: As visualized are clear. Mastoid air cells: Well pneumatized. Calvarium and scalp: Skull is intact with no soft tissue edema or swelling. CT/CT head wo con* [id number] IMPRESSION: 1. No acute intracranial hemorrhage or edema. 2. Minimal progression of cerebral and cerebellar atrophy and small vessel dis ease since 06/02/2024. 3. Mild ventriculomegaly on the basis of atrophy.
--- NOTE | 2025-05-14 08:30 | CT_ITS ---
WS: [id number] LDCT LUNG CANCER SCREENING HISTORY: NICOTINE DEPENDENCE TECHNIQUE: Axial imaging performed from the apices to 1 cm below the costophrenic angles. Coronal and sagittal reformats are submitted with axial MIP series. All CT scans at [facility] use at least one of these dose optimization techniques: automated exposure control; mA and/or kV adjustment per patient size (includes targeted exams where dose is matched to clinical indication); or iterative reconstruction. DLP: 76.10 mGy.cm DIvol: Mean CTDIvol: 1.50 (mGy) COMPARISON: 07/17/2022 Diagnostic quality: Satisfactory Lungs: Moderate pulmonary hyperexpansion. 2 mm nodule LEFT upper lobe, image 99 series 4. Small amount of debris in the trachea. There are a few small mucous septations. Heart: Normal size heart with no pericardial effusion.. Extensive coronary artery calcifications. Patient has cardiac stents as per history. Other findings: Extensive atherosclerotic calcified plaque within the thoracic aorta. Calcified plaque extends into the great vessels. No aneurysm. Normal size pulmonary artery. There is a large hiatal hernia. Stomach is intrathoracic along with the proximal small bowel and omental fat. Mild mass effect upon the posterior heart. Hernia has progressed in size and extent since 07/17/2022. No outlet obstruction. No adenopathy. Visualized adrenal glands are negative. Splenic granulomata. Stable hepatic 11 mm low-attenuation mass since 07/17/2022. Probably represents a small cyst or hemangioma. CT/CT lung screening [id number] IMPRESSION: LUNG-RADS: 2-Benign Appearance or Behavior FOLLOW UP: 12 Month: Continue annual screening with LDCT OTHER FINDINGS (S MODIFIER): None.
== END 2025-05-14 08:15 | disposition home or self-care (01) ==
LOC: RAD 08:16
PROVIDERS: PCP Family Medicine; Visit Provider Family Medicine
DX: Z87.891 Personal history of nicotine dependence (principal); R51.9 Headache, unspecified; G31.9 Degenerative disease of nervous system, unspecified; I25.10 Atherosclerotic heart disease of native coronary artery without angina pectoris; Z95.5 Presence of coronary angioplasty implant and graft; I70.0 Atherosclerosis of aorta; K44.9 Diaphragmatic hernia without obstruction or gangrene
CPT/HCPCS: 70450; 71271

== ENCOUNTER 2025-07-05 12:17 | Emergency (ER) | payer OTHER, SELFPAY ==
--- NOTE | 2025-07-05 12:18 | XRR_ITS ---
PROCEDURE INFORMATION: Exam: XR Sacrum and Coccyx, 2 or More Views Exam date and time: 07/05/2025 12:25 PM Age: 80 years old Clinical indication: Injury or trauma; Fall; Blunt trauma (contusions or hematomas) TECHNIQUE: Imaging protocol: XR of the sacrum and coccyx, 2 or more views. COMPARISON: CR XR hip RT 2-3V wo/w pel* [id number] 07/14/2024 6:27 PM FINDINGS: Bones/joints: Postop changes of left hip replacement are present. The bones appear osteopenic. Sacrum and coccyx appear in normal alignment. There are degenerative changes of the lower lumbar spine. Soft tissues: Normal. Vasculature: Atherosclerotic change of the aorta and branch vessels is noted. XR/XR sacrum coccyx min 2V [id number] IMPRESSION: Osteopenia. No acute fracture is identified. If symptoms continue it may be more helpful to follow-up with CT for better sensitivity.
[2025-07-05 12:20] VITALS: BP 135/74; PULSE 65; RESP 18; TEMP 36.8; O2SAT 98; BMI 19.5
--- NOTE | 2025-07-05 12:25 | W.ED.FALL ---
HPI - Fall General: Chief Complaint: Fall Stated Complaint: fall - tailbone pain Time Seen by Provider: 07/05/25 12:18 History of Present Illness: 80-year-old male presents to the emergency room after a fall via EMS from his home. Patient has a history of dementia he fell while getting out of bed he is complaining primarily of pain in his tailbone. He also told me he has right knee pain. He has chronic neck pain which apparently is unchanged is no evidence of direct blow to the head. No other complaints. Patient typically does use aids for ambulation including cane and walker. Associated symptoms-after fall: Denies abdominal pain, chest pain or neck pain Related Data Home Medications ?Medication ?Instructions ?Recorded ?Confirmed finasteride 5 mg tablet 5 mg PO DAILY@08/28/19 05/13/25 simvastatin 80 mg tablet 40 mg PO BEDTIME@199908/28/19 05/13/25 donepezil 5 mg tablet 10 mg PO DAILY 03/01/21 05/13/25 multivitamin (Multiple Vitamins 1 tab PO DAILY 05/17/22 05/13/25 tablet) sertraline 100 mg tablet 100 mg PO DAILY 05/17/22 05/13/25 metoprolol tartrate 50 mg tablet 25 mg PO BID@12/20/22 05/13/25 clopidogrel 75 mg tablet (Plavix) 75 mg PO DAILY 07/05/23 05/13/25 pantoprazole 20 mg tablet,delayed 40 mg PO DAILY 10/29/23 05/13/25 release sennosides 8.6 mg capsule 8.6 mg PO DAILY 10/29/23 05/13/25 Previous Rx's ?Medication ?Instructions ?Recorded tamsulosin 0.4 mg capsule 0.4 mg PO BID #180 caps 03/01/21 diclofenac sodium 75 mg 75 mg PO Q12H PRN pain #20 tabs 12/01/22 tablet,delayed release orthopedic shoes with 3010 insoles #1 ea 12/30/24 isosorbide mononitrate 30 mg 30 mg PO DAILY #90 tabs 01/04/25 tablet,extended release 24 hr amoxicillin 875 mg-potassium 1 tab PO BID #14 tabs 03/03/25 clavulanate 125 mg tablet Allergies Allergy/AdvReac Type Severity Reaction Status Date / Time No Known Allergies Allergy Verified 05/13/25 10:58 Review of Systems Const: Denies: fever(s) or chills Card: Denies: chest pain Resp: Denies: dyspnea GI: Denies: abdominal pain : Denies: dysuria, urinary frequency or urinary urgency Musc: Denies: neck pain or back pain Skin/Breast: Denies: rash PFSH ED PFSH: Medical History Chest pain Carotid stenosis, bilateral Seropositive rheumatoid arthritis of multiple sites Osteoarthritis of hands, bilateral Immunization counseling High risk medication use Inflammatory arthritis Hx of sciatica Hx of coronary artery disease Hx of hypercholesterolemia Hx of TIA (transient ischemic attack) and stroke Hx of myocardial infarction History of GI bleed History of atrial fibrillation Joint pain Back pain BPH loc w urin obs/LUTS Myocardial infarction Hypercholesterolemia Osteoarthritis BPH (benign prostatic hyperplasia) Surgical History History of coronary artery stent placement History of coronary angioplasty with insertion of stent (02/2017) History of hip replacement (07/2009) Left, Total. [facility] History of bunionectomy (07/09/18) Trino. Dr. Taylor H/O colonoscopy 09/20/2019: sigmoid diverticulosis H/O esophagogastroduodenoscopy 09/20/2019: hiatal hernia, Barretts esophagus and hiatal hernia S/P ORIF (open reduction internal fixation) fracture left forearm and right elbow Hx of cataract surgery Family History Father , at age 78 CAD (coronary artery disease) Myocardial infarction Mother , at age 83 Stroke Brother Stroke Denies family history of Anesthesia complication Bleeding disorder Social History Smoking and tobacco/nicotine status: former use of tobacco/nicotine Quit status (tobacco/nicotine): has quit using Year quit tobacco: 1986 Former quit date comment: Quit 36 yrs ago Alcohol intake: never Substance/Drug Use: never Household members: spouse Marital status: Current occupational status: retired Physical Exam Const: GENERAL APPEARANCE: cooperative ORIENTATION/CONSCIOUSNESS: Yes awake HENMT: COMMON NORMALS: normocephalic, atraumatic and hearing grossly normal bilaterally HEAD & SCALP: normocephalic and atraumatic Resp: COMMON NORMALS: normal respiratory effort, No retractions, No use of accessory muscles and clear to auscultation bilaterally AUSCULTATION: clear to auscultation bilaterally Cardio: COMMON NORMALS: regular rate, regular rhythm and No murmurs present (Cardio) RATE: regular rate RHYTHM: regular rhythm GI: COMMON NORMALS: Soft to palpation and No hepatosplenomegaly present AUSCULTATION: Yes normoactive bowel sounds PALPATION: Yes Soft to palpation, No Tenderness to palpation present (GI), No Guarding due to palpation present (GI) and Yes No hepatosplenomegaly present Extremity: COMMON NORMALS: normal to inspection, capillary refill normal, no clubbing, cyanosis or edema, no calf tenderness and no pedal edema Skin: COMMON NORMALS: no rashes or lesions noted GENERAL SKIN EXAM: no rashes or lesions noted Course Vital Signs: Vital signs: Vital Signs Temperature 98.3 F 07/05/25 12:20 Pulse Rate 63 07/05/25 14:45 Respiratory Rate 18 07/05/25 12:20 Blood Pressure 108/72 07/05/25 14:45 Pulse Oximetry 96 07/05/25 14:45 Oxygen Delivery Me thod Room Air 07/05/25 13:50 MDM - Fall Medical Decision Making Medical decision making Social determinants: Dementia. Patient assistance with ADLs I reviewed the patient's medical record. I reviewed the patient's current home meds. Alternate historians: Family Differential diagnosis: Coccygeal fracture all Lab Review: No significant laboratory findings Imaging:X-rays done include pelvis cervical spine right knee sacrum and coccyx no acute fractures noted in any of these plain films. Assessment of risk Level of risk: Moderate Hospitalization considerations: No indication for acute hospitalization Reexamination: Stable unchanged Assessment and plan: Reviewed findings with family at the bedside. Patient has had dementia. He said problems with balance and has had falls in the past. No acute fractures at this time. Suspect patient will have significant soft tissue pain over the next couple days. Lab Data 07/05/25 12:44 07/05/25 12:44 Radiology Impressions Sacrum and Coccyx X-Ray 07/05/25 12:18 IMPRESSION: Osteopenia. No acute fracture is identified. If symptoms continue it may be more helpful to follow-up with CT for better sensitivity. Knee X-Ray 07/05/25 12:27 IMPRESSION: Degenerative changes. No acute abnormality identified. Cervical Spine X-Ray 07/05/25 13:26 IMPRESSION: Severe degenerative spondylosis of the cervical spine without acute abnormality. Pelvis X-Ray 07/05/25 13:26 IMPRESSION: Intact total left hip arthroplasty without acute abnormality of the bony pelvis. Laboratory Results WBC 8.32 10^3/uL (3.29-11.43) 07/05/25 12:44 RBC 4.15 10^6/uL (3.85-5.65) 07/05/25 12:44 Hgb 11.70 g/dL (11.27-16.99) 07/05/25 12:44 Hct 36.0 % (37-53) L 07/05/25 12:44 MCV 86.7 fl (82-101) 07/05/25 12:44 MCH 28.2 pg (27-33) 07/05/25 12:44 MCHC 32.5 g/dL (30-55) 07/05/25 12:44 RDW 13.2 % (12.1-15.1) 07/05/25 12:44 Plt Count 284 10^3/cmm (157-399) 07/05/25 12:44 MPV 8.3 fL (7.4-10.4) 07/05/25 12:44 Neut % (Auto) 76.5 % 07/05/25 12:44 Lymph % (Auto) 14.4 % 07/05/25 12:44 [place] % (Auto) 6.4 % 07/05/25 12:44 Eos % (Auto) 1.2 % 07/05/25 12:44 Baso % (Auto) 1.0 % 07/05/25 12:44 Neut # (Auto) 6.37 10^3/uL (1.8-7.7) 07/05/25 12:44 Lymph # (Auto) 1.2 10^3/uL (0.8-4.8) 07/05/25 12:44 [place] # (Auto) 0.5 10^3/uL (0.2-0.9) 07/05/25 12:44 Eos # (Auto) 0.1 10^3/uL (0.0-0.8) 07/05/25 12:44 Baso # (Auto) 0.1 10^3/uL (0.0-0.1) 07/05/25 12:44 Nucleated RBC % (auto) 0 % 07/05/25 12:44 Nucleated RBCs # 0.0 /100WBC 07/05/25 12:44 Sodium 138 mmol/L (136-145) 07/05/25 12:44 Potassium 3.8 mmol/L (3.5-5.1) 07/05/25 12:44 Chloride 103 mmol/L (98-107) 07/05/25 12:44 Carbon Dioxide 25 mmol/L (22-29) 07/05/25 12:44 Anion Gap 13.8 (5-19) 07/05/25 12:44 BUN 15 mg/dL (8-23) 07/05/25 12:44 Creatinine 0.7 mg/dL (0.7-1.2) 07/05/25 12:44 GFR Calculation Not Reportable 07/05/25 12:44 Glucose 100 mg/dL (65-115) 07/05/25 12:44 Calculated Osmolality 287 mOsm/kg (285-295) 07/05/25 12:44 Calcium 9.6 mg/dL (8.5-10.5) 07/05/25 12:44 Total Bilirubin 0.4 mg/dL (0.15-1.2) 07/05/25 12:44 AST 14 U/L (0-40) 07/05/25 12:44 ALT 10 U/L (0-41) 07/05/25 12:44 Alkaline Phosphatase 91 U/L (40-130) 07/05/25 12:44 Total Protein 6.1 g/dL (6.6-8.7) L 07/05/25 12:44 Albumin 3.7 g/dL (3.5-5.2) 07/05/25 12:44 Globulin 2.4 g/dL (1.3-4.6) 07/05/25 12:44 All radiology interpretation(s) finalized by discharge Discharge Plan Discharge Patient Disposition: Home Clinical Impression: Fall, Dementia Condition: Stable Prescriptions: No Action donepezil 5 mg tablet 10 mg PO DAILY tamsulosin 0.4 mg capsule 0.4 mg PO BID Qty: 180 3RF metoprolol tartrate 50 mg tablet 25 mg PO BID@06,20 finasteride 5 mg tablet 5 mg PO DAILY@06 simvastatin 80 mg tablet 40 mg PO BEDTIME@1999 sertraline 100 mg tablet 100 mg PO DAILY multivitamin [Multiple Vitamins] Tablet 1 tab PO DAILY amoxicillin-pot clavulanate 875-125 mg tablet 1 tab PO BID Qty: 14 0RF clopidogrel [Plavix] 75 mg tablet 75 mg PO DAILY (DME) orthopedic shoes with 3010 insoles See Rx Instructions .Route .MEDSUPPLY Qty: 1 0RF Rx Instructions: As directed to the shoe abisai isosorbide mononitrate 30 mg tablet extended release 24 hr 30 mg PO DAILY Qty: 90 3RF diclofenac sodium 75 mg tablet,delayed release (DR/EC) 75 mg PO Q12H PRN (Reason: pain) Qty: 20 0RF pantoprazole 20 mg Tablet,Delayed Release (Dr/Ec) 40 mg PO DAILY sennosides 8.6 mg Capsule 8.6 mg PO DAILY Discharge Orders: Discharge ED (Routine); Ordered 07/05/25 Ordered By: Ilan Barron Referrals: Elda Corral MD [Primary Care Provider, Family Practice] Discharge Diet: Usual diet Discharge Activity: Increase activity as tolerated Patient Instructions: Opioid Safety, Pain Management, Patient Portal & Alice Instructions Activity Restrictions/Additional Instructions: Thank you for choosing [facility] for your healthcare needs today. It is very important that you follow up as instructed or that you return to the Emergency Department should you have concerns or if your condition changes or worsens in any way. Emergency department visits are focused on emergent conditions, in some cases you may require further evaluation on an outpatient basis. You were seen in the emergency room with complaints of a fall. X-rays did not show any acute fractures. Other laboratory test were done including chemistries CBC . These were also normal. Would likely be very sore over the next couple days you can use Tylenol or ibuprofen as needed. (Please note that included in your discharge packet is information concerning opioid safety and pain management. This information is given to all patients were discharged from the ER regardless of their discharge diagnosis or the medicines they usually take or are prescribed.) Print Language: Dominican Coding Level of Care Code ED Shipping Services Sales Representative for Maya Hogue
--- NOTE | 2025-07-05 12:27 | XRR_ITS ---
PROCEDURE INFORMATION: Exam: XR Right Knee Exam date and time: 07/05/2025 12:33 PM Age: 80 years old Clinical indication: Injury or trauma; Fall; Blunt trauma; Knee; Right TECHNIQUE: Imaging protocol: Radiologic exam of the right knee. Views: 3 views. COMPARISON: CR XR foot RT min 3V* [id number] 11/14/2023 1:11 PM FINDINGS: Bones/joints: No acute fractures are identified. Mild medial and lateral compartment narrowing is present. There is spurring of the tibial spines. There is some high density within the joint space consistent with calcium pyrophosphate deposition (CPPD). Soft tissues: Normal. Vasculature: There is atherosclerotic changes of the vessels. XR/XR knee RT 3V* [id number] IMPRESSION: Degenerative changes. No acute abnormality identified.
[2025-07-05 12:52] LABS: Hematocrit 36.0 % (37-53); Hemoglobin 11.70 g/dL (11.27-16.99); Mean Corpuscular HGB Conc 32.5 g/dL (30-55); Mean Corpuscular Hemoglobin 28.2 pg (27-33); Mean Corpuscular Volume 86.7 fl (82-101); Nucleated Red Blood Cells % 0 %; Platelet Count 284 10^3/cmm (157-399); Red Blood Count 4.15 10^6/uL (3.85-5.65); White Blood Count 8.32 10^3/uL (3.29-11.43)
[2025-07-05 13:14] LABS: Alanine Aminotransferase 10 U/L (0-41); Albumin Level 3.7 g/dL (3.5-5.2); Alkaline Phosphatase 91 U/L (40-130); Anion Gap 13.8 (5-19); Aspartate Amino Transferase 14 U/L (0-40); Blood Urea Nitrogen 15 mg/dL (8-23); Calcium 9.6 mg/dL (8.5-10.5); Carbon Dioxide 25 mmol/L (22-29); Chloride 103 mmol/L (98-107); Creatinine Clr Calc Pharmacy 74.7475; Globulin 2.4 g/dL (1.3-4.6); Glucose 100 mg/dL (65-115); Osmolality Calculated 287 mOsm/kg (285-295); Potassium 3.8 mmol/L (3.5-5.1); Sodium 138 mmol/L (136-145); Total Protein 6.1 g/dL (6.6-8.7)
--- NOTE | 2025-07-05 13:26 | XR_ITS ---
WS: [id number] XR cervical spine 3V* [id number] REASON FOR EXAM: trauma FINDINGS: Cervical spine is unchanged compared to previous examination of 12/18/2022. Exaggerated lordosis of the cervical spine. Normal odontoid. No acute compression fracture of the cervical vertebrae. Significant narrowing of the intervertebral disc spaces at C3-C4, C5-C6, C6-C7 and C7-T1. Significant anterior and posterior osteophytosis C5-T1. 2 to 3 mm of anterolisthesis of C4 in relation to C3 and C5, chronic. 2 to 3 mm of anterolisthesis of C5 in relation to C6 and C7 in relation to 6, chronic. Normal facet joint alignment with significant degenerative arthropathy in the facet joints C3-T1. XR/XR cervical spine 3V* [id number] IMPRESSION: Severe degenerative spondylosis of the cervical spine without acute abnormality .
--- NOTE | 2025-07-05 13:26 | XR_ITS ---
WS: [id number] XR pelvis 1-2V* [id number] REASON FOR EXAM: trauma FINDINGS: Total left hip arthroplasty. Components are intact and in proper position and alignment. No acute fracture is identified. Moderate to significant osteoarthritis in the right hip joint. XR/XR pelvis 1-2V* [id number] IMPRESSION: Intact total left hip arthroplasty without acute abnormality of the bony pelvis .
[2025-07-05 13:50] VITALS: BP 103/69; PULSE 59; O2SAT 99
[2025-07-05 14:45] VITALS: BP 108/72; PULSE 63; O2SAT 96
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
--- OUTSIDE RECORDS SUMMARY | 2025-07-05 16:56 | XMS_ITS | Encounter Summary ---
Author Organization [facility] Address [address] [place] [address] Care Team Providers Care Ad Terminal Makeup Operator Name Role Phone Unavailable Primary Care Provider Unavailabl e Encounter Details Date Type Department Care Team (Late st Contact Info) Description 06/04/2025 Results Follow-Up [facility] Neurology [facility] [address] [place] [address] Felix Cunha MD [address] [place] [phone] XR SHOULDER 2+ VW LEFT Social History Tobacco Use Types Packs/Day Years Used Date Smoking Tobacco: Former Cigarettes 1 Q uit: 02/15/1996 Smokeless Tobacco: Never Alcohol Use Standard Drinks/Week Comments No 0 (1 standard drink = 0.6 oz pur e alcohol) Sex and Gender Information Value Date Recorded Sex Assigned at Not on file Legal Sex Male 2:01 AM LUMBER MARKER Gender Identity Not on file Sexual Orientation Not on file documented as of this encounter Plan of Treatment Upcoming Encounters Date Type Department Care Team (Late st Contact Info) Description 08/10/2025 4:15 PM LUMBER MARKER Appointment [facility] Neurology [facility] [address] [place] [address] Felix Cunha MD [address] [place] [phone] documented as of this encounter Visit Diagnoses Not on filedocumented in this encounter
--- OUTSIDE RECORDS SUMMARY | 2025-07-05 16:57 | XMS_ITS | Patient Health Record ---
Author Organization [facility] Address [address] [place] [address] Care Team Providers Care Tar Distillation Supervisor Name Role Phone Elda Chaparro MD Primary Care Provider Mathieu Restrepo Unavailable [phone] Reason For Referral No Information Social History Tobacco Use: Social History Observation Description Date Details (start date - stop date) Former Smoker NA - NA Social History Drugs/Alcohol: Social Info Question Answer Notes Alcohol Screen (Audit-C) Did you have a drink containing alcohol in the past year? No Points 0 Interpretation Negative Drugs Have you used drugs other than those for medical reasons in the past 12 months? No Tobacco Use: Social Info Question Answer Notes xTobacco Use/Smoking Are you a former smoker How long has it been since you last smoked? > 10 years Problems Problem Type SNOMED Code ICD Code Onset Dates Problem Status W/U Status Risk Notes Problem Lower urinary tract symptoms due to benign prostatic hypertrophy (47993567307642) Benign prostatic hyperplasia with lower urinary tract symptoms (N40.1) Active confirmed Problem Benign prostatic hypertrophy without outflow obstruction (520639256) Benign prostatic hyperplasia, unspecified whether lower urinary tract symptoms present (N40.0) Active confirmed Problem Degeneration of lumbar intervertebral disc (73867087) Disc degeneration, lumbar (M51.36) Active confirmed Problem Degeneration of lumbar intervertebral disc (69401914) Degeneration of intervertebral disc of lumbar region (M51.36) Active confirmed Plan Of Treatment No Information Insurance Providers Payer Name Payer Address Payer Phone Subscriber Number Group Number Insured Name Patient Relationship to Insured Coverage Start Date Coverage End Date [employer] [place] [address] [place] [address] [id number] Matthew Mederos Self - patient is the insured Medical (General) History Surgical History Surgery Date(Month/Year) Hip Replacement 2009 Hospitalization History Reason Date(Month/Year) Heart Stents 2016
== END 2025-07-05 14:40 | disposition home or self-care (01) ==
PROVIDERS: Emergency Provider Family Medicine; PCP Family Medicine
DX: F03.90 Unspecified dementia, unspecified severity, without behavioral disturbance, psychotic disturbance, mood disturbance, and anxiety (principal); Z79.02 Long term (current) use of antithrombotics/antiplatelets; I25.10 Atherosclerotic heart disease of native coronary artery without angina pectoris; Z86.73 Personal history of transient ischemic attack (TIA), and cerebral infarction without residual deficits
CPT/HCPCS: 36415; 72040; 72170; 72220; 73562; 80053; 85025; 96374; 99284; J1885

== ENCOUNTER → 2025-07-06 12:14 | Outpatient (BNVA) | payer OTHER, SELFPAY | PROVIDERS: PCP Family Medicine; Visit Provider Internal Medicine | DX: R07.89 Other chest pain (principal); Z87.891 Personal history of nicotine dependence | CPT/HCPCS: 99213 ==

== ENCOUNTER → 2025-07-13 13:03 | Outpatient (BNVA) | payer OTHER, SELFPAY | PROVIDERS: PCP Family Medicine; Visit Provider Podiatrist Foot & Ankle Surgery | DX: I73.9 Peripheral vascular disease, unspecified (principal); L60.8 Other nail disorders; L84 Corns and callosities; L03.116 Cellulitis of left lower limb | CPT/HCPCS: 11055; 11721 ==